=== PATIENT | male | born 1960 | race Caucasian/White ===

== ENCOUNTER → 2018-02-15 | Outpatient (CLI) | payer BC ==
--- NOTE | 2018-02-15 11:58 | XR ---
EXAMINATION TYPE: XR cervical spine limited DATE OF EXAM: 02/15/2018 COMPARISON: 04/12/2015 HISTORY: Pain TECHNIQUE: 3 views are submitted. FINDINGS: The odontoid is intact. There are no compression deformities. The prevertebral soft tissue structur es are within normal limits. There is posterior spondylosis at C3-4, C4-5 and C5-C6. Mild degenerati ve disc disease at these levels. Calcification the soft tissues of the neck likely related to carotid artery. IMPRESSION: 1. Multilevel degenerative disc disease and posterior spondylosis. There is concern for disc herniati on, canal stenosis or foraminal encroachment correlate with MRI. 2. Soft tissue neck calcification bilaterally suggestive of carotid artery calcification..
== END ==
LOC: RADXRMAIN 11:25
PROVIDERS: ATTEND Family Medicine
DX: M50.11 Cervical disc disorder with radiculopathy, high cervical region (principal); M47.22 Other spondylosis with radiculopathy, cervical region
CPT/HCPCS: 72040

== ENCOUNTER → 2018-03-03 | Outpatient (CLI) | payer BC ==
--- NOTE | 2018-03-03 08:39 | CTL ---
EXAMINATION TYPE: CT Low Dose Lung DATE OF EXAM ORDERED: 03/03/2018 COMPARISON: None HISTORY: . Low Dose CT Lung Screening CT DLP: [address] CTDI: 2.22 mGy IV CONTRAST USED: None. SCREENING VISIT: First visit COMPARISON: None. TECHNIQUE: Low dose computed tomography scan was performed through the chest at 1 millimeter thick se ctions and reconstructed images in the coronal plane at [address] DIAGNOSTIC QUALITY: Satisfactory FINDINGS: LUNG NODULES: Not presentLeft lung: no nodules identified.Right lung: no nodules identified. LUNGS: COPD: Severity: None Fibrosis: Severity:None Lymph nodes: None Other findings: None RIGHT PLEURAL SPACE: Effusion: None Calcification: None Thickening: None Pneumothorax: None LEFT PLEURAL SPACE: Effusion: None Calcification: None Thickening: None Pneumothorax: None HEART: Heart Size: Mildly enlarged Coronary calcification: Mild Pericardial effusion: None OTHER FINDINGS: Upper abdomen: No significant abnormality Bony thorax: Degenerative changes Supraclavicular region: No significant abnormalityOther: No significant abnormalityI IMPRESSION: Negative FOLLOW UP CT CHEST RECOMMENDATION: Follow-up screening in one year CT LUNG RAD: Negative category 1 LUNG RAD CATEGORY 1
== END | disposition home or self-care (01) ==
LOC: RADCTMAIN 07:51
PROVIDERS: ATTEND Family Medicine
DX: Z12.2 Encounter for screening for malignant neoplasm of respiratory organs (principal); Z87.891 Personal history of nicotine dependence

== ENCOUNTER → 2018-06-28 | Outpatient (CLI) | payer BC ==
[2018-06-28 11:14] LABS: Anion Gap 9 mmol/L; Blood Urea Nitrogen 19 mg/dL (9-20); Carbon Dioxide 27 mmol/L (22-30); Chloride 105 mmol/L (98-107); Potassium 5.1 mmol/L (3.5-5.1); Sodium 141 mmol/L (137-145)
[2018-06-28 16:34] LABS: Hemoglobin A1C 5.5 % (4.0-6.0)
== END | disposition home or self-care (01) ==
LOC: LABWHC1 10:01
PROVIDERS: ATTEND Family Medicine
DX: I10 Essential (primary) hypertension (principal)
CPT/HCPCS: 36415; 80051; 82565; 83036; 84520

== ENCOUNTER 2022-08-24 18:48 | Emergency (ER) | payer BC, OTHER ==
[2022-08-24 18:56] VITALS: TEMP 97.4
--- NOTE | 2022-08-24 19:55 | ED ---
General Adult HPI - General Chief complaint: Chest Pain Stated complaint: ETOH, heart pain, headache Time Seen by Provider: 08/24/22 18:57 Source: patient Mode of arrival: ambulatory Limitations: no limitations - History of Present Illness Initial comments: This is a 62-year-old male with a past medical history including diabetes and hypertension presented to the emergency department with his sister for chest pain. The patient was intoxicated and did report that he drinks approximately 15-30 pack of beer every day and had been drinking today. The patient is a poor historian and needed to rely on his sister for answering some questions. The patient stated he has had chest pain and pressure on the left side of his chest for "months" and stated that the pain became worse today speaking in. The patient stated that he has not taken any medications that he is supposed to over the last several months since December when his . The patient stated he also had a headache today. The patient denied any lightheadedness or dizziness. The patient denied any radiation of this chest pain. The patient did have point tenderness to the left side anterior chest and denied any trauma to the area. The patient was resting in bed comfortably. - Related Data Home Medications Medication Instructions Recorded Confirmed Empagliflozin/Linagliptin 1 tab PO DAILY 07/14/16 07/15/16 [Glyxambi 10 mg-5 mg Tablet] lisinopriL [Prinivil] 20 mg PO DAILY 07/14/16 07/15/16 Previous Rx's Medication Instructions Recorded HYDROcodone/APAP 7.5-325MG [[place] 1 each PO Q4H PRN #60 tab 07/15/16 7.5] Allergies Allergy/AdvReac Type Severity Reaction Status Date / Time No Known Allergies Allergy Verified 08/24/22 18:55 Review of Systems ROS Statement: Those systems with pertinent positive or pertinent negative responses have been documented in the HPI. ROS Other: All systems not noted in ROS Statement are negative. Past Medical History Past Medical History: Chest Pain / Angina, Diabetes Mellitus, Hypertension History of Any Multi-Drug Resistant Organisms: None Reported Additional Past Surgical History / Comment(s): [place] teeth pulled only. Additional Past Anesthesia/Blood Transfusion Reaction / Comment(s): Never had anesthesia Past Psychological History: No Psychological Hx Reported Past Alcohol Use History: Occasional Past Drug Use History: None Reported - Past Family History Mother Family Medical History: No Reported History Father Family Medical History: Cancer Additional Family Medical History / Comment(s): Unknown General Exam Limitations: no limitations General appearance: alert, appears intoxicated Head exam: Present: atraumatic, normocephalic, normal inspection Eye exam: Present: normal appearance, PERRL Pupils: Present: normal accommodation ENT exam: Present: normal exam, normal oropharynx, mucous membranes moist Neck exam: Present: normal inspection, full ROM Respiratory exam: Present: normal lung sounds bilaterally, other (Tenderness with patient to the anterior left chest wall) Cardiovascular Exam: Present: regular rate, normal rhythm, normal heart sounds GI/Abdominal exam: Present: soft, normal bowel sounds Extremities exam: Present: normal inspection, full ROM Back exam: Present: normal inspection, full ROM Neurological exam: Present: alert, oriented X3, CN II-XII intact Psychiatric exam: Present: normal affect, normal mood Skin exam: Present: warm, dry Course Vital Signs 08/24/22 08/24/22 18:53 22:07 Temperature 97.4 F L Pulse Rate 109 H 78 Respiratory 20 15 Rate Blood Pressure 185/110 137/67 O2 Sat by Pulse 94 L 97 Oximetry Medical Decision Making - Medical Decision Making The patient was seen and evaluated in the emergency department. Physical exam, the patient was resting in bed without any acute distress. The patient was intoxicated. Vital signs did show slight tachycardia and hypertension. Due to the nature the patient's complaints, laboratory workup was obtained as was a chest x-ray and EKG. Laboratory workup was largely within normal limits however d-dimer was 0.88. Chest x-ray was negative. The patient's alcohol level was elevated likely consistent with his chronic alcohol abuse. The patient was told of these results. The patient was advised that he would need a CTA of the chest to rule out a PE however the patient refused this. The patient's sister also told him that it was needed however the patient did not want to obtain this lab test and stated that he didn't have any current chest pain. The patient wanted to be discharged and did not want any further testing at this time. I did advise the patient that he could have a PE however due to the chronicity of the patient's chest pain at did agree to discharge the patient to follow up as an outpatient. The patient was discharged home in stable condition with his sister. - Lab Data Result diagrams: 08/24/22 19:37 08/24/22 19:37 Lab Results 08/24/22 08/24/22 08/24/22 Range/Units 19:37 19:37 19:37 WBC 10.0 (3.8-10.6) k/uL RBC 5.42 (4.30-5.90) m/uL Hgb 17.2 (13.0-17.5) gm/dL Hct 50.3 (39.0-53.0) % MCV 92.7 (80.0-100.0) fL MCH 31.7 (25.0-35.0) pg MCHC 34.2 (31.0-37.0) g/dL RDW 13.2 (11.5-15.5) % Plt Count 202 (150-450) k/uL MPV 9.3 Neutrophils % 51 % Lymphocytes % 40 % Monocytes % 5 % Eosinophils % 1 % Basophils % 1 % Neutrophils # 5.1 (1.3-7.7) k/uL Lymphocytes # 4.1 (1.0-4.8) k/uL Monocytes # 0.5 (0-1.0) k/uL Eosinophils # 0.1 (0-0.7) k/uL Basophils # 0.1 (0-0.2) k/uL D-Dimer 0.88 H (<0.60) mg/L FEU Sodium 143 (137-145) mmol/L Potassium 4.1 (3.5-5.1) mmol/L Chloride 108 H (98-107) mmol/L Carbon Dioxide 22 (22-30) mmol/L Anion Gap 13 mmol/L BUN 10 (9-20) mg/dL Creatinine 0.80 (0.66-1.25) mg/dL Est GFR (CKD-EPI)AfAm >90 (>60 ml/min/1.73 sqM) Est GFR (CKD-EPI)NonAf >90 (>60 ml/min/1.73 sqM) Glucose 79 (74-99) mg/dL Calcium 9.0 (8.4-10.2) mg/dL Total Bilirubin 0.6 (0.2-1.3) mg/dL AST 47 (17-59) U/L ALT 76 H (4-49) U/L Alkaline Phosphatase 78 (38-126) U/L Troponin I (0.000-0.034) ng/mL NT-Pro-B Natriuret Pep pg/mL Total Protein 7.4 (6.3-8.2) g/dL Albumin 4.8 (3.5-5.0) g/dL Serum Alcohol 257 H* mg/dL 08/24/22 08/24/22 Range/Units 19:37 19:37 WBC (3.8-10.6) k/uL RBC (4.30-5.90) m/uL Hgb (13.0-17.5) gm/dL Hct (39.0-53.0) % MCV (80.0-100.0) fL MCH (25.0-35.0) pg MCHC (31.0-37.0) g/dL RDW (11.5-15.5) % Plt Count (150-450) k/uL MPV Neutrophils % % Lymphocytes % % Monocytes % % Eosinophils % % Basophils % % Neutrophils # (1.3-7.7) k/uL Lymphocytes # (1.0-4.8) k/uL Monocytes # (0-1.0) k/uL Eosinophils # (0-0.7) k/uL Basophils # (0-0.2) k/uL D-Dimer (<0.60) mg/L FEU Sodium (137-145) mmol/L Potassium (3.5-5.1) mmol/L Chloride (98-107) mmol/L Carbon Dioxide (22-30) mmol/L Anion Gap mmol/L BUN (9-20) mg/dL Creatinine (0.66-1.25) mg/dL Est GFR (CKD-EPI)AfAm (>60 ml/min/1.73 sqM) Est GFR (CKD-EPI)NonAf (>60 ml/min/1.73 sqM) Glucose (74-99) mg/dL Calcium (8.4-10.2) mg/dL Total Bilirubin (0.2-1.3) mg/dL AST (17-59) U/L ALT (4-49) U/L Alkaline Phosphatase (38-126) U/L Troponin I 0.025 (0.000-0.034) ng/mL NT-Pro-B Natriuret Pep 686 pg/mL Total Protein (6.3-8.2) g/dL Albumin (3.5-5.0) g/dL Serum Alcohol mg/dL Disposition Clinical Impression: Chest pain, Elevated d-dimer, Alcohol abuse Disposition: HOME SELF-CARE Condition: Stable Instructions (If sedation given, give patient instructions): Chest Pain (ED) Is patient prescribed a controlled substance at d/c from ED?: No Referrals: None,Stated [Primary Care Provider] - 1-2 days Time of Disposition: 21:50
[2022-08-24 20:09] LABS: Basophils # (A) 0.1 k/uL (0-0.2); Basophils % (A) 1 %; Eosinophils # (A) 0.1 k/uL (0-0.7); Eosinophils % (A) 1 %; HCT 50.3 % (39.0-53.0); HGB 17.2 gm/dL (13.0-17.5); Lymphocytes # (A) 4.1 k/uL (1.0-4.8); Lymphocytes % (A) 40 %; MCH 31.7 pg (25.0-35.0); MCHC 34.2 g/dL (31.0-37.0); MCV 92.7 fL (80.0-100.0); Mean Platelet Volume 9.3; Monocytes # (A) 0.5 k/uL (0-1.0); Monocytes % (A) 5 %; Neutrophils # (A) 5.1 k/uL (1.3-7.7); Neutrophils % (A) 51 %; Platelet Count 202 k/uL (150-450); RBC 5.42 m/uL (4.30-5.90); RDW 13.2 % (11.5-15.5)
--- NOTE | 2022-08-24 20:16 | XR ---
EXAMINATION TYPE: XR chest 2V DATE OF EXAM: 08/24/2022 COMPARISON: NONE HISTORY: Chest pain TECHNIQUE: FINDINGS: Heart and mediastinum are normal. Lungs are clear. Diaphragm is normal. Bony thorax is inta ct. IMPRESSION: Normal chest.
[2022-08-24 20:18] LABS: ALT 76 U/L (4-49); AST 47 U/L (17-59); African American GFR (CKD) >90 (>60 ml/min/1.73 sqM); Albumin 4.8 g/dL (3.5-5.0); Alkaline Phosphatase 78 U/L (38-126); Anion Gap 13 mmol/L; Blood Urea Nitrogen 10 mg/dL (9-20); Carbon Dioxide 22 mmol/L (22-30); Chloride 108 mmol/L (98-107); Glucose 79 mg/dL (74-99); Non-African American GFR(CKD) >90 (>60 ml/min/1.73 sqM); Potassium 4.1 mmol/L (3.5-5.1); Sodium 143 mmol/L (137-145); Total Bilirubin 0.6 mg/dL (0.2-1.3); Total Protein 7.4 g/dL (6.3-8.2)
[2022-08-24 20:39] LABS: Alcohol 257 mg/dL
[2022-08-24 22:08] VITALS: BP 137/67; PULSE 78; RESP 15
== END 2022-08-24 22:14 | disposition home or self-care (01) ==
LOC: EC 18:48
DX: R07.9 Chest pain, unspecified (principal); R79.1 Abnormal coagulation profile; F10.10 Alcohol abuse, uncomplicated; E11.9 Type 2 diabetes mellitus without complications; I10 Essential (primary) hypertension; Y90.9 Presence of alcohol in blood, level not specified
CPT/HCPCS: 36415; 71046; 80053; 80320; 83880; 84484; 85025; 85379; 99284

== ENCOUNTER 2023-12-29 19:07 | Emergency (ER) | payer OTHER ==
--- NOTE | 2023-12-29 19:23 | ED ---
SOB HPI - General Source: patient Mode of arrival: EMS Limitations: no limitations <Pushpa Pittman - Last Filed: 12/29/23 19:22> <Kevin Alonso - Last Filed: 12/29/23 23:06> - General Chief Complaint: Shortness of Breath Stated Complaint: DONNY Time Seen by Provider: 12/29/23 19:22 - History of Present Illness Initial Comments: 63-year-old male presenting with chief complaint of shortness of breath. He also complains of chest pain. Does not remember when his symptoms started. States that he "quit smoking" today, he has only smoked 1 cigarette today. (Pushpa Pittman) - Related Data Home Medications Medication Instructions Recorded Confirmed Empagliflozin/Linagliptin 1 tab PO DAILY 07/14/16 07/15/16 [Glyxambi 10 mg-5 mg Tablet] lisinopriL [Prinivil] 20 mg PO DAILY 07/14/16 07/15/16 Previous Rx's Medication Instructions Recorded HYDROcodone/APAP 7.5-325MG [[place] 1 each PO Q4H PRN #60 tab 07/15/16 7.5] Albuterol Inhaler [Ventolin Hfa 2 puff INHALATION Q4HR PRN #8 gm 12/29/23 Inhaler] predniSONE 60 mg PO DAILY #30 tab 12/29/23 Allergies Allergy/AdvReac Type Severity Reaction Status Date / Time No Known Allergies Allergy Verified 08/24/22 18:55 Review of Systems ROS Other: All systems not noted in ROS Statement are negative. <Pushpa Pittman - Last Filed: 12/29/23 19:22> ROS Other: All systems not noted in ROS Statement are negative. <Kevin Alonso - Last Filed: 12/29/23 23:06> ROS Statement: Those systems with pertinent positive or pertinent negative responses have been documented in the HPI. Past Medical History Past Medical History: Chest Pain / Angina, Diabetes Mellitus, Hypertension History of Any Multi-Drug Resistant Organisms: None Reported Past Surgical History: Hernia Repair Additional Past Surgical History / Comment(s): [place] teeth pulled only. Additional Past Anesthesia/Blood Transfusion Reaction / Comment(s): Never had anesthesia Past Psychological History: No Psychological Hx Reported Past Alcohol Use History: Occasional Past Drug Use History: None Reported - Past Family History Mother Family Medical History: No Reported History Father Family Medical History: Cancer Additional Family Medical History / Comment(s): Unknown <Pushpa Pittman - Last Filed: 12/29/23 19:22> General Exam Limitations: no limitations <Pushpa Pittman - Last Filed: 12/29/23 19:22> - General Exam Comments Initial Comments: Visual Physical Exam Vital signs reviewed General: Well-appearing, nontoxic, no acute distress. Head: Normocephalic, atraumatic Eyes: PERRLA, EOMI ENT: Airway patent Chest: Nonlabored breathing Skin: No visual rash, normal skin tone Neuro: Alert and oriented 3 Musculoskeletal: No gross abnormalities (Pushpa Pittman) Course Vital Signs 12/29/23 12/29/23 12/29/23 19:11 21:40 22:03 Temperature 97.8 F Pulse Rate 115 H 98 Respiratory 26 H 20 20 Rate Blood Pressure 154/106 164/93 O2 Sat by Pulse 98 98 Oximetry 12/29/23 12/29/23 12/29/23 22:09 22:24 22:30 Temperature Pulse Rate 90 98 85 Respiratory 18 Rate Blood Pressure 139/90 O2 Sat by Pulse 98 Oximetry Medical Decision Making <Pushpa Pittman - Last Filed: 12/29/23 19:22> - Lab Data Result diagrams: 12/29/23 19:38 12/29/23 19:38 - EKG Data -: EKG Interpreted by Al EKG shows normal: sinus rhythm, axis (Normal), intervals (Normal) Rate: tachycardia (Rate 101 bpm) Interpretation: nonspecific ST-T wave changes, LVH (Voltage criteria) <Kevin Alonso - Last Filed: 12/29/23 23:06> - Medical Decision Making I performed the quick note portion of this visit, electronically signed Pushpa Pittman PA-C (Pushpa Pittman) - Lab Data Lab Results 12/29/23 12/29/23 12/29/23 Range/Units 19:38 19:38 19:38 WBC 8.8 (3.8-10.6) k/uL RBC 4.94 (4.30-5.90) m/uL Hgb 15.2 (13.0-17.5) gm/dL Hct 45.7 (39.0-53.0) % MCV 92.5 (80.0-100.0) fL MCH 30.9 (25.0-35.0) pg MCHC 33.4 (31.0-37.0) g/dL RDW 13.4 (11.5-15.5) % Plt Count 239 (150-450) k/uL MPV 8.7 Neutrophils % 54 % Lymphocytes % 36 % Monocytes % 5 % Eosinophils % 1 % Basophils % 1 % Neutrophils # 4.8 (1.3-7.7) k/uL Lymphocytes # 3.1 (1.0-4.8) k/uL Monocytes # 0.5 (0-1.0) k/uL Eosinophils # 0.1 (0-0.7) k/uL Basophils # 0.1 (0-0.2) k/uL PT 10.6 (10.0-12.5) sec INR 1.0 (<1.2) APTT 24.6 (22.0-30.0) sec Sodium 132 L (137-145) mmol/L Potassium 4.1 (3.5-5.1) mmol/L Chloride 102 (98-107) mmol/L Carbon Dioxide 17 L (22-30) mmol/L Anion Gap 13 mmol/L BUN 12 (9-20) mg/dL Creatinine 0.94 (0.66-1.25) mg/dL Est GFR (CKD-EPI)AfAm >90 (>60 ml/min/1.73 sqM) Est GFR (CKD-EPI)NonAf 86 (>60 ml/min/1.73 sqM) Glucose 86 (74-99) mg/dL Calcium 8.9 (8.4-10.2) mg/dL Total Bilirubin 1.0 (0.2-1.3) mg/dL AST 43 (17-59) U/L ALT 50 H (4-49) U/L Alkaline Phosphatase 85 (38-126) U/L Troponin I (0.000-0.034) ng/mL Total Protein 6.8 (6.3-8.2) g/dL Albumin 4.0 (3.5-5.0) g/dL Influenza Type A (PCR) (Not Detectd) Influenza Type B (PCR) (Not Detectd) RSV (PCR) (Not Detectd) SARS-CoV-2 (PCR) (Not Detectd) 12/29/23 12/29/23 Range/Units 19:38 19:38 WBC (3.8-10.6) k/uL RBC (4.30-5.90) m/uL Hgb (13.0-17.5) gm/dL Hct (39.0-53.0) % MCV (80.0-100.0) fL MCH (25.0-35.0) pg MCHC (31.0-37.0) g/dL RDW (11.5-15.5) % Plt Count (150-450) k/uL MPV Neutrophils % % Lymphocytes % % Monocytes % % Eosinophils % % Basophils % % Neutrophils # (1.3-7.7) k/uL Lymphocytes # (1.0-4.8) k/uL Monocytes # (0-1.0) k/uL Eosinophils # (0-0.7) k/uL Basophils # (0-0.2) k/uL PT (10.0-12.5) sec INR (<1.2) APTT (22.0-30.0) sec Sodium (137-145) mmol/L Potassium (3.5-5.1) mmol/L Chloride (98-107) mmol/L Carbon Dioxide (22-30) mmol/L Anion Gap mmol/L BUN (9-20) mg/dL Creatinine (0.66-1.25) mg/dL Est GFR (CKD-EPI)AfAm (>60 ml/min/1.73 sqM) Est GFR (CKD-EPI)NonAf (>60 ml/min/1.73 sqM) Glucose (74-99) mg/dL Calcium (8.4-10.2) mg/dL Total Bilirubin (0.2-1.3) mg/dL AST (17-59) U/L ALT (4-49) U/L Alkaline Phosphatase (38-126) U/L Troponin I 0.019 (0.000-0.034) ng/mL Total Protein (6.3-8.2) g/dL Albumin (3.5-5.0) g/dL Influenza Type A (PCR) Not Detected (Not Detectd) Influenza Type B (PCR) Not Detected (Not Detectd) RSV (PCR) Not Detected (Not Detectd) SARS-CoV-2 (PCR) Not Detected (Not Detectd) Disposition <Pushpa Pittman - Last Filed: 12/29/23 19:22> Is patient prescribed a controlled substance at d/c from ED?: No <Kevin Alonso - Last Filed: 12/29/23 23:06> Clinical Impression: COPD (chronic obstructive pulmonary disease) Disposition: LEFT AGAINST MEDICAL ADVICE Condition: Fair Instructions (If sedation given, give patient instructions): COPD (Chronic Obstructive Pulmonary Disease) (ED) Prescriptions: predniSONE 60 mg PO DAILY #30 tab Albuterol Inhaler [Ventolin Hfa Inhaler] 2 puff INHALATION Q4HR PRN #8 gm PRN Reason: Wheezing Referrals: Je Gonzales MD [Primary Care Provider] - 1-2 days Marlene Porras MD [STAFF PHYSICIAN] - 1-2 days
[2023-12-29 19:55] LABS: Basophils # (A) 0.1 k/uL (0-0.2); Basophils % (A) 1 %; Eosinophils # (A) 0.1 k/uL (0-0.7); Eosinophils % (A) 1 %; HCT 45.7 % (39.0-53.0); HGB 15.2 gm/dL (13.0-17.5); Lymphocytes # (A) 3.1 k/uL (1.0-4.8); Lymphocytes % (A) 36 %; MCH 30.9 pg (25.0-35.0); MCHC 33.4 g/dL (31.0-37.0); MCV 92.5 fL (80.0-100.0); Mean Platelet Volume 8.7; Monocytes # (A) 0.5 k/uL (0-1.0); Monocytes % (A) 5 %; Neutrophils # (A) 4.8 k/uL (1.3-7.7); Neutrophils % (A) 54 %; Platelet Count 239 k/uL (150-450); RBC 4.94 m/uL (4.30-5.90); RDW 13.4 % (11.5-15.5); WBC 8.8 k/uL (3.8-10.6)
[2023-12-29 20:04] LABS: Partial Thromboplastin Time 24.6 sec (22.0-30.0); Prothrombin Time 10.6 sec (10.0-12.5)
[2023-12-29 20:11] LABS: ALT 50 U/L (4-49); AST 43 U/L (17-59); African American GFR (CKD) >90 (>60 ml/min/1.73 sqM); Alkaline Phosphatase 85 U/L (38-126); Anion Gap 13 mmol/L; Blood Urea Nitrogen 12 mg/dL (9-20); Calcium 8.9 mg/dL (8.4-10.2); Carbon Dioxide 17 mmol/L (22-30); Chloride 102 mmol/L (98-107); Glucose 86 mg/dL (74-99); Non-African American GFR(CKD) 86 (>60 ml/min/1.73 sqM); Potassium 4.1 mmol/L (3.5-5.1); Sodium 132 mmol/L (137-145); Total Protein 6.8 g/dL (6.3-8.2)
--- NOTE | 2023-12-29 20:44 | XR ---
EXAMINATION TYPE: XR chest 2V DATE OF EXAM: 12/29/2023 7:58 PM CLINICAL INDICATION:Male, 63 years old with history of difficulty breathing; [facility] COMPARISON: Chest radiographs from 08/24/2022 TECHNIQUE: XR chest 2V Frontal and lateral views of the chest. FINDINGS: Lungs/Pleura: Prominent interstitial lung markings are seen scattered throughout the lungs with mervin ening of the diaphragm and increased lucency of the lung apices. No evidence of focal consolidation, pneumothorax or pleural effusion. Pulmonary vascularity: Unremarkable. Heart/mediastinum: Cardiomediastinal silhouette is unremarkable. Musculoskeletal: No acute osseous pathology. IMPRESSION: Chronic changes without acute pulmonary process. No significant change from prior.
[2023-12-29] MEDS: predniSONE 20 MG TAB PO STA (22:01)
[2023-12-29] MEDS: IPRATROPIUM-ALBUTEROL 3 ML NEB INHALATION STA (22:08)
[2023-12-29] MEDS: ALBUTEROL NEBULIZED 2.5 MG/3 ML INHALATION STA (22:08)
[2023-12-29] MEDS: ALBUTEROL HFA INHALER INHALATION STA (23:21)
[2023-12-29 23:32] VITALS: BP 154/88; PULSE 92; RESP 18
[2023-12-29 23:33] VITALS: TEMP 98.4
== END 2023-12-29 23:20 | disposition left against medical advice (07) ==
LOC: EC 19:07 → SUPCPDRO 19:07 → EC 23:20
DX: J44.9 Chronic obstructive pulmonary disease, unspecified (principal); Z87.891 Personal history of nicotine dependence; Z53.29 Procedure and treatment not carried out because of patient's decision for other reasons
CPT/HCPCS: 99285; 36415; 94640 ×2; 93005; 80053; 84484; 85025; 85610; 85730; 87636; 71046; J7512

== ENCOUNTER 2024-01-08 00:20 | Inpatient (IN) | payer OTHER ==
[2024-01-08 00:48] LABS: Basophils # (A) 0.1 k/uL (0-0.2); Basophils % (A) 1 %; Eosinophils # (A) 0.1 k/uL (0-0.7); Eosinophils % (A) 1 %; HCT 51.9 % (39.0-53.0); HGB 16.3 gm/dL (13.0-17.5); Lymphocytes # (A) 3.2 k/uL (1.0-4.8); Lymphocytes % (A) 24 %; MCH 30.5 pg (25.0-35.0); MCHC 31.4 g/dL (31.0-37.0); Mean Platelet Volume 8.5; Monocytes # (A) 0.7 k/uL (0-1.0); Monocytes % (A) 5 %; Neutrophils % (A) 68 %; Platelet Count 266 k/uL (150-450); RBC 5.35 m/uL (4.30-5.90); RDW 13.4 % (11.5-15.5); WBC 13.3 k/uL (3.8-10.6)
[2024-01-08] MEDS: IPRATROPIUM-ALBUTEROL 3 ML NEB INHALATION STA (00:49)
[2024-01-08] MEDS: LORazepam 2 MG/ML INJ IV STA (00:50)
[2024-01-08 00:57] LABS: ALT 198 U/L (4-49); AST 226 U/L (17-59); African American GFR (CKD) 79 (>60 ml/min/1.73 sqM); Alkaline Phosphatase 170 U/L (38-126); Anion Gap 11 mmol/L; Blood Urea Nitrogen 19 mg/dL (9-20); Calcium 8.8 mg/dL (8.4-10.2); Carbon Dioxide 18 mmol/L (22-30); Chloride 102 mmol/L (98-107); Glucose 257 mg/dL (74-99); Magnesium 2.1 mg/dL (1.6-2.3); Non-African American GFR(CKD) 68 (>60 ml/min/1.73 sqM); Sodium 131 mmol/L (137-145); Total Bilirubin 1.4 mg/dL (0.2-1.3); Total Protein 6.6 g/dL (6.3-8.2)
[2024-01-08] MEDS: ETOMIDATE 2 MG/ML 10 ML VIAL IVP STA (00:57)
[2024-01-08] MEDS: SUCCINYLCHOLINE CHLORIDE 200 MG/10 ML VIAL IV ONE (00:57)
[2024-01-08 00:58] LABS: Partial Thromboplastin Time 22.5 sec (22.0-30.0); Prothrombin Time 11.2 sec (10.0-12.5)
--- NOTE | 2024-01-08 00:58 | XR ---
EXAMINATION TYPE: XR chest 1V portable DATE OF EXAM: 01/08/2024 COMPARISON: Chest x-ray December 29, 2023 HISTORY: Chest pain TECHNIQUE: Single frontal view of the chest is obtained. FINDINGS: There is chronic parenchymal changes bilaterally with bilateral central increased opacitie s. The cardiac silhouette size is upper limits of normal slightly more prominent from prior. The o sseous structures are intact. IMPRESSION: New central opacities favoring mild to moderate edema versus developing acute infiltrate s. Correlate clinically.
[2024-01-08] MEDS: SODIUM CHLORIDE 0.9% 500 ML 500 ML IV SCH (01:08)
[2024-01-08] MEDS: MIDAZOLAM 1 MG/ML 5 ML VIAL IV STA ×2 (01:23→03:45)
--- NOTE | 2024-01-08 01:25 | XR ---
EXAMINATION TYPE: XR chest 1V portable DATE OF EXAM: 01/08/2024 COMPARISON: Chest x-ray earlier today HISTORY: ET tube placement. TECHNIQUE: Single frontal view of the chest is obtained. FINDINGS: There is no endotracheal tube at level of aortic knob approximately 2.0 cm above elle. Ad vise pulling back 2 to 3 cm to be more ideal position. New oral gastric tube projects below the diaph ragm. Persistent central bilateral opacities. The cardiac silhouette size is stable and within normal walker its. The osseous structures are intact. IMPRESSION: 1. Satisfactory positioning of new orogastric tube. 2. Endotracheal tube roughly 2.0 cm above elle, advise point back 2 to 3 cm to be more ideal positi on. 3. Moderate central bilateral edema and/or less likely acute infiltrates redemonstrated. No significa nt change from most recent study.
--- NOTE | 2024-01-08 01:29 | ED ---
General Adult HPI - General Chief complaint: Chest Pain Stated complaint: chest pain Time Seen by Provider: 01/08/24 00:38 Source: patient, family Limitations: no limitations - History of Present Illness Initial comments: Bk is a 63-year-old man with a history of COPD who was brought to the ER today in acute respiratory distress. Patient reported to his family that he has had some increased cough and shortness of breath today he developed sharp stabbing pain in his left chest and progressively worsening shortness of breath he refused to come to the ER by ambulance and requested his family bring him in. Further history is limited by patient's respiratory distress - Related Data Home Medications Medication Instructions Recorded Confirmed Empagliflozin/Linagliptin 1 tab PO DAILY 07/14/16 07/15/16 [Glyxambi 10 mg-5 mg Tablet] lisinopriL [Prinivil] 20 mg PO DAILY 07/14/16 07/15/16 Previous Rx's Medication Instructions Recorded HYDROcodone/APAP 7.5-325MG [[place] 1 each PO Q4H PRN #60 tab 07/15/16 7.5] Albuterol Inhaler [Ventolin Hfa 2 puff INHALATION Q4HR PRN #8 gm 12/29/23 Inhaler] predniSONE 60 mg PO DAILY #30 tab 12/29/23 Allergies Allergy/AdvReac Type Severity Reaction Status Date / Time No Known Allergies Allergy Verified 01/08/24 00:21 Review of Systems ROS Statement: Those systems with pertinent positive or pertinent negative responses have been documented in the HPI. ROS Other: All systems not noted in ROS Statement are negative. Past Medical History Past Medical History: Chest Pain / Angina, COPD, Diabetes Mellitus, Hypertension History of Any Multi-Drug Resistant Organisms: None Reported Past Surgical History: Hernia Repair Additional Past Surgical History / Comment(s): [place] teeth pulled only. Additional Past Anesthesia/Blood Transfusion Reaction / Comment(s): Never had anesthesia Past Psychological History: No Psychological Hx Reported Smoking Status: Current every day smoker Past Alcohol Use History: Occasional Past Drug Use History: None Reported - Past Family History Mother Family Medical History: No Reported History Father Family Medical History: Cancer Additional Family Medical History / Comment(s): Unknown General Exam - General Exam Comments Initial Comments: Physical Exam GENERAL: Ill-appearing gentleman davis pale diaphoretic in acute respiratory distress HENT: Normocephalic, Atraumatic. EYES: PERRL, EOMI PULMONARY: Tachypneic, coarse breath sounds in all lung sanchez CARDIOVASCULAR: Tachycardic, regular Diaphoretic, skin is mottled on abdomen and extremities ABDOMEN: Belly breathing SKIN: Mottled : Deferred NEUROLOGIC: Somewhat altered with eyes rolling back MUSCULOSKELETAL: Normal extremities with adequate strength and full range of motion. No lower extremity swelling or edema. No calf tenderness. PSYCHIATRIC: Unable to assess Limitations: no limitations Course Vital Signs 01/08/24 01/08/24 01/08/24 00:21 00:45 01:23 Pulse Rate 125 H 125 H Respiratory 20 34 H Rate Blood Pressure 205/137 201/156 O2 Sat by Pulse 86 L 92 L Oximetry Fraction of 100 Inspired Oxygen (FIO2) 01/08/24 01/08/24 01:28 02:00 Pulse Rate Respiratory Rate Blood Pressure O2 Sat by Pulse Oximetry Fraction of 100 80 Inspired Oxygen (FIO2) EKG Findings - EKG Comments: EKG Findings:: EKG interpreted by me, EKG obtained due to complaint of chest pain and shortness of breath, EKG obtained at 12:34 AM EKG with a rate of 127, rhythm is sinus leftward axis with LVH, significant respiratory artifact but no obvious ST elevations mild diffuse ST depressions concerning for ischemia without acute infarction. Procedures - Intubation Sedative: Etomidate Paralytic: Succinylcholine Laryngoscope: Monika Size: 4 ET Tube Size: 7.5 ET Tube Uncuffed: No Tube Secured Depth (cm): 23 Tube Secured Location: teeth Tube Placement Confirmation: visualized tube passing through cords, equal breath sounds bilaterally, no breath sounds over epigastrium, confirmation by capnometry Patient Tolerated Procedure: well Intubation Complications: none - Sepsis Sepsis Focused Exam #1 Time Sepsis Criteria Met: 01:00 Sepsis Focused Exam Date: 01/08/24 Sepsis Focused Exam Time: 02:17 Sepsis Focused Exam Complete: Yes Capillary Refill: < 2 Seconds: Fingers, Toes Peripheral Pulses: Normal: Radial (R), Radial (L) Respiratory Exam: rales Cardiovascular Exam: regular rate Medical Decision Making - Medical Decision Making Was pt. sent in by a medical professional or institution (, PA, ELECTRICIAN MARINE, urgent care, hospital, or usp...) When possible be specific @ -No Did you speak to anyone other than the patient for history (EMS, parent, family, police, friend...)? What history was obtained from this source @ -Son, niece at bedside Did you review nursing and triage notes (agree or disagree)? Why? @ -I reviewed and agree with nursing and triage notes Were old charts reviewed (outside hosp., previous admission, EMS record, old EKG, old radiological studies, urgent care reports/EKG's, usp records)? Report findings @ -Previous visits were reviewed Differential Diagnosis (chest pain, altered mental status, abdominal pain women, abdominal pain men, vaginal bleeding, weakness, fever, dyspnea, syncope, headache, dizziness, GI bleed, back pain, seizure, CVA, palpatations, mental health)? @ -Differential Dyspnea: Coronary syndrome, arrhythmia, tamponade, asthma, COPD, pulmonary embolism, pneumonia, pneumothorax, pulmonary effusion, anaphylaxis, diabetic ketoacidosis, flailed chest, pulmonary contusion, diaphragmatic rupture, anemia, neuromuscular, this is not meant to be an all-inclusive list. EKG interpreted by me (3pts min.). @ -As above X-rays interpreted by me (1pt min.). @ -Initial chest x-ray with no pneumothorax, concerning for left-sided pneumonia Chest x-ray with ET tube in good position, OG tube below the diaphragm CT interpreted by me (1pt min.). @ -No obvious PE no obvious dissection, pneumonia present with small pleural effusions U/S interpreted by me (1pt. min.). @ -None done What testing was considered but not performed or refused? (CT, X-rays, U/S, labs )? Why? @ -None What meds were considered but not given or refused? Why? @ -None Did you discuss the management of the patient with other professionals (professionals i.e. , PA, ELECTRICIAN MARINE, lab, RT, psych nurse, long term care social worker, unix engineer, teacher, first officer and flight instructor, pillowcase maker)? Give summary @ -Discussed with RT, nursing staff at bedside, ICU physician and admitting physician Was smoking cessation discussed for >3mins.? @ -No Was critical care preformed (if so, how long)? @ -Yes 60 minutes Were there social determinants of health that impacted care today? How? (Homelessness, low income, unemployed, alcoholism, drug addiction, transportation, low edu. Level, literacy, decrease access to med. care, fdc, rehab)? @ -No Was there de-escalation of care discussed even if they declined (Discuss DNR or withdrawal of care, Hospice)? DNR status @ -No What co-morbidities impacted this encounter? (DM, HTN, Smoking, COPD, CAD, Cancer, CVA, ARF, Chemo, Hep., AIDS, mental health diagnosis, sleep apnea, morbid obesity)? @ -COPD Was patient admitted / discharged? Hospital course, mention meds given and route, prescriptions, significant lab abnormalities, going to OR and other pertinent info. @ -The patient was seen and evaluated immediately upon arrival to the emergency department, patient was noted to be davis pale diaphoretic tachypneic tachycardic and profoundly hypertensive patient was in severe respiratory distress. We had trialed BiPAP with a small dose of IV Ativan however patient was not tolerating the BiPAP and was becoming altered. Decision was ultimately made to intubate the patient for respiratory support and airway protection. Family was agreeable with this. Patient was intubated without difficulty. Chest x-ray reveals ET tube in good position OG tube in good position. Patient was taken to CT for evaluation due to vital sign abnormalities. CT shows diffuse pneumonia no dissection no pulmonary embolism. Broad-spectrum antibiotics were ordered. Patient care was discussed with gaming commissioner poker room manager Dr. Oliveros who accepts the patient to the ICU. Undiagnosed new problem with uncertain prognosis? @ -Yes Drug Therapy requiring intensive monitoring for toxicity (Heparin, Nitro, Insulin, Cardizem)? @ -No Were any procedures done? @ -No Diagnosis/symptom? @ -Respiratory failure secondary to pneumonia Acute, or Chronic, or Acute on Chronic? @ -Acute Uncomplicated (without systemic symptoms) or Complicated (systemic symptoms)? @ -Complicated Side effects of treatment? @ -No Exacerbation, Progression, or Severe Exacerbation? @ -No Poses a threat to life or bodily function? How? (Chest pain, [place], [place], pneumonia, PE, COPD, DKA, ARF, appy, cholecystitis, CVA, Diverticulitis, Homicidal, Suicidal, threat to staff... and all critical care pts) @ -Yes Diagnosis/symptom? @ -Sepsis Acute, or Chronic, or Acute on Chronic? @ -Acute Uncomplicated (without systemic symptoms) or Complicated (systemic symptoms)? @ -Complicated Side effects of treatment? @ -None Exacerbation, Progression, or Severe Exacerbation] @ -No Poses a threat to life or bodily function? @ -Yes - Lab Data Result diagrams: 01/08/24 00:37 01/08/24 00:37 Lab Results 01/08/24 01/08/24 01/08/24 Range/Units 00:37 00:37 00:37 WBC 13.3 H (3.8-10.6) k/uL RBC 5.35 (4.30-5.90) m/uL Hgb 16.3 (13.0-17.5) gm/dL Hct 51.9 (39.0-53.0) % MCV 97.0 (80.0-100.0) fL MCH 30.5 (25.0-35.0) pg MCHC 31.4 (31.0-37.0) g/dL RDW 13.4 (11.5-15.5) % Plt Count 266 (150-450) k/uL MPV 8.5 Neutrophils % 68 % Lymphocytes % 24 % Monocytes % 5 % Eosinophils % 1 % Basophils % 1 % Neutrophils # 9.0 H (1.3-7.7) k/uL Lymphocytes # 3.2 (1.0-4.8) k/uL Monocytes # 0.7 (0-1.0) k/uL Eosinophils # 0.1 (0-0.7) k/uL Basophils # 0.1 (0-0.2) k/uL PT 11.2 (10.0-12.5) sec INR 1.0 (<1.2) APTT 22.5 (22.0-30.0) sec Sample Site ABG pH (7.35-7.45) ABG pCO2 (35-45) mmHg ABG pO2 (83-108) mmHg ABG HCO3 (21-25) mmol/L ABG Total CO2 (19-24) mmol/L ABG O2 Saturation (94-97) % ABG Base Excess mmol/L Shen Test FiO2 % Sodium 131 L (137-145) mmol/L Potassium 4.0 (3.5-5.1) mmol/L Chloride 102 (98-107) mmol/L Carbon Dioxide 18 L (22-30) mmol/L Anion Gap 11 mmol/L BUN 19 (9-20) mg/dL Creatinine 1.14 (0.66-1.25) mg/dL Est GFR (CKD-EPI)AfAm 79 (>60 ml/min/1.73 sqM) Est GFR (CKD-EPI)NonAf 68 (>60 ml/min/1.73 sqM) Glucose 257 H (74-99) mg/dL Calcium 8.8 (8.4-10.2) mg/dL Magnesium 2.1 (1.6-2.3) mg/dL Total Bilirubin 1.4 H (0.2-1.3) mg/dL AST 226 H (17-59) U/L ALT 198 H (4-49) U/L Alkaline Phosphatase 170 H (38-126) U/L Troponin I (0.000-0.034) ng/mL Total Protein 6.6 (6.3-8.2) g/dL Albumin 4.0 (3.5-5.0) g/dL 01/08/24 01/08/24 Range/Units 00:37 01:55 WBC (3.8-10.6) k/uL RBC (4.30-5.90) m/uL Hgb (13.0-17.5) gm/dL Hct (39.0-53.0) % MCV (80.0-100.0) fL MCH (25.0-35.0) pg MCHC (31.0-37.0) g/dL RDW (11.5-15.5) % Plt Count (150-450) k/uL MPV Neutrophils % % Lymphocytes % % Monocytes % % Eosinophils % % Basophils % % Neutrophils # (1.3-7.7) k/uL Lymphocytes # (1.0-4.8) k/uL Monocytes # (0-1.0) k/uL Eosinophils # (0-0.7) k/uL Basophils # (0-0.2) k/uL PT (10.0-12.5) sec INR (<1.2) APTT (22.0-30.0) sec Sample Site L radial ABG pH 7.44 (7.35-7.45) ABG pCO2 28 L (35-45) mmHg ABG pO2 135 H (83-108) mmHg ABG HCO3 19 L (21-25) mmol/L ABG Total CO2 20 (19-24) mmol/L ABG O2 Saturation 99.2 H (94-97) % ABG Base Excess -5.4 mmol/L Shen Test Yes FiO2 100 % Sodium (137-145) mmol/L Potassium (3.5-5.1) mmol/L Chloride (98-107) mmol/L Carbon Dioxide (22-30) mmol/L Anion Gap mmol/L BUN (9-20) mg/dL Creatinine (0.66-1.25) mg/dL Est GFR (CKD-EPI)AfAm (>60 ml/min/1.73 sqM) Est GFR (CKD-EPI)NonAf (>60 ml/min/1.73 sqM) Glucose (74-99) mg/dL Calcium (8.4-10.2) mg/dL Magnesium (1.6-2.3) mg/dL Total Bilirubin (0.2-1.3) mg/dL AST (17-59) U/L ALT (4-49) U/L Alkaline Phosphatase (38-126) U/L Troponin I 0.028 (0.000-0.034) ng/mL Total Protein (6.3-8.2) g/dL Albumin (3.5-5.0) g/dL Critical Care Time Critical Care Time: Yes Total Critical Care Time: 60 Disposition Clinical Impression: COPD (chronic obstructive pulmonary disease), Pneumonia Dis[facility] Condition: Critical Referrals: Je Gonzales MD [Primary Care Provider] - 1-2 days
--- NOTE | 2024-01-08 01:33 | CT ---
EXAMINATION TYPE: CT chest angio for PE DATE OF EXAM: 01/08/2024 COMPARISON: NONE HISTORY: R/O PE and/or DISSECTION. PT BECAME ALTERED AND O2 SAT VERY LOW. PT INTUBATED. chest pain th at started a few PD, cough, congestion, and increased hours ago. pt states that the chest pain is con stant and sharp. pt also states has pain in the shoulders. Pt reports that he has a hx of course diff iculty breathing. pt refused to come via ambulance that was called and family brought the pt in. CT DLP: 802.8 mGycm. Automated Exposure Control for Dose Reduction was Utilized. CONTRAST: CTA scan of the thorax is performed with IV Contrast, patient injected with 100 mL of Isovue 370, pul monary embolism protocol. MIP Images are created on CT scanner and reviewed. FINDINGS: LUNGS: Small to borderline moderate sized bilateral pleural effusions. There are additional multifoca l groundglass opacities and areas of organizing consolidation throughout the bilateral upper and lowe r lungs. Endotracheal tube terminates just above the aortic knob satisfactory in position. No pneumot horax is seen bilaterally. MEDIASTINUM: Orogastric tube projects below diaphragm. Suboptimal study with most dense contrast in the SVC and aorta. No central saddle pulmonary embolism. Cannot entirely exclude segmental or subseg mental PE on this exam. No linear hypodensity to suggest dissection in the aorta. Three-vessel origin from the aortic arch. Moderate mixed plaque in the infrarenal abdominal aorta. No AAA. Ascending aor ta measures up to 3.8 cm in diameter. No cardiomegaly or pericardial effusion is seen. Coronary arter y calcification is present. OTHER: Liver is diffusely low dense suggesting fatty infiltrative hepatocellular disease. Contracted gallbladder has edematous wall thickening. IMPRESSION: 1. Suboptimal study without central saddle pulmonary embolism. Cannot entirely exclude segmental or s ubsegmental acute PE. 2. No aortic dissection. 3. Small moderate sized bilateral pleural effusions. Bilateral multifocal groundglass opacities and f ocal consolidations. Consider fluid overload state and acute infectious process. Correlate clinically .
[2024-01-08 01:40] LABS: Allen Test Performed? Yes
[2024-01-08 01:59] LABS: ABG PCO2 28 mmHg (35-45); ABG PH 7.44 (7.35-7.45); ABG PO2 135 mmHg (83-108)
[2024-01-08 02:00] LABS: ABG Base Excess -5.4 mmol/L; ABG HCO3 19 mmol/L (21-25); ABG Oxygen Saturation 99.2 % (94-97); ABG TCO2 20 mmol/L (19-24)
[2024-01-08] MEDS: cefTRIAXone IN SWFI 1,000 MG/10 ML SYRINGE IVP STA (02:04)
[2024-01-08] MEDS ORDERED: NALOXONE 0.4 MG/ML 1 ML VIAL IV PRN (02:05)
[2024-01-08] MEDS: AZITHROMYCIN 500 MG in SODIUM CHLORIDE 0.9% 250 ML IVPB STA (02:29)
[2024-01-08] MEDS: SODIUM CHLORIDE 0.9% 1,000 ML IV ONE ×2 (02:30→04:03)
[2024-01-08] MEDS: SODIUM CHLORIDE 0.9% 1,000 ML IV SCH (02:50)
[2024-01-08] MEDS: fentaNYL (PF). 1,000 MCG in SODIUM CHLORIDE 0.9% 80 ML IV SCH (04:19)
[2024-01-08 06:08] LABS: ABG Base Excess -6.8 mmol/L; ABG HCO3 19 mmol/L (21-25); ABG Oxygen Saturation 98.5 % (94-97); ABG PCO2 38 mmHg (35-45); ABG PH 7.32 (7.35-7.45); ABG PO2 153 mmHg (83-108); ABG TCO2 21 mmol/L (19-24); Allen Test Performed? Yes
[2024-01-08] MEDS ORDERED: IPRATROPIUM-ALBUTEROL 3 ML NEB INHALATION PRN (07:57)
[2024-01-08] MEDS: BUDESONIDE 1 MG/2 ML NEBU INHALATION SCH (08:17)
[2024-01-08] MEDS: FORMOTEROL FUMARATE 20 MCG/2 ML NEBU INHALATION SCH (08:17)
[2024-01-08] MEDS: IPRATROPIUM-ALBUTEROL 3 ML NEB INHALATION SCH (08:17)
[2024-01-08] MEDS ORDERED: NALOXONE 0.4 MG/ML 1 ML VIAL IVP PRN (09:27)
--- NOTE | 2024-01-08 11:15 | P.CNPUL ---
History of Present Illness Consult date: 01/08/24 Requesting physician: Devon Adame Reason for consult: other (Critical care/ventilator management) History of present illness: This is a 63-year-old male patient who presented to the ER just after midnight today with complaints of chest pain shortness of breath cough congestion. He had stated he had start sharp stabbing pain in the left chest progressively worsening shortness of breath. Apparently he refused to come by EMS that had been called. He came in by family car. He was noted to be davis, pale diaphoretic, tachypneic and tachycardic and severe respiratory distress. Initial trial of BiPAP and Ativan failed and the patient was intubated and placed on the mechanical ventilator. CT angio gram was suboptimal. No central saddle pulmonary embolism. Could not exclude segmental or subsegmental PE. No aortic dissection. There are small to moderate-sized bilateral pleural effusions. Bilateral multifocal glass opacities and focal consolidations. EKG revealed sinus tachycardia without significant ST or T wave abnormalities. White count 13.3. Hemoglobin 16.3. Platelets 266. Sodium 131. Potassium 4.0. Bicarb 18. BUN 19. Creatinine 1.14. Glucose 257. Magnesium 2.1. AST 226. ALT 198. Initial troponin 0.028. Then 0.088. proBNP 12,500. Viral screen was negative. He is intubated on mechanical ventilator currently on assist-control mode at a rate of 20, tidal volume 450, FiO2 40% and a PEEP of 5. Most recent arterial blood gases revealed a PaO2 of 153, pCO2 38 and a pH of 7.38. He is on propofol at 15 mcg/kg/min. Fentanyl drip at 1 mcg/kg/h. Receive ceftriaxone and azithromycin. Review of Systems ROS unobtainable: due to endotracheal tube Past Medical History Past Medical History: Chest Pain / Angina, COPD, Diabetes Mellitus, Hypertension History of Any Multi-Drug Resistant Organisms: None Reported Past Surgical History: Hernia Repair Additional Past Surgical History / Comment(s): [place] teeth pulled only. Additional Past Anesthesia/Blood Transfusion Reaction / Comment(s): Never had anesthesia Past Psychological History: No Psychological Hx Reported Smoking Status: Current every day smoker Past Alcohol Use History: Occasional Past Drug Use History: None Reported - Past Family History Mother Family Medical History: No Reported History Father Family Medical History: Cancer Additional Family Medical History / Comment(s): Unknown Medications and Allergies Home Medications Medication Instructions Recorded Confirmed Type Albuterol Inhaler [Ventolin Hfa 2 puff INHALATION DIRECTED PRN 01/08/24 01/08/24 History Inhaler] predniSONE 60 mg PO DIRECTED 01/08/24 01/08/24 History Allergies Allergy/AdvReac Type Severity Reaction Status Date / Time No Known Allergies Allergy Verified 01/08/24 10:00 Physical Exam Vitals: Vital Signs Temp Pulse Resp BP Pulse Ox FiO2 01/08/24 10:00 86 18 125/89 99 01/08/24 09:00 78 18 113/77 99 01/08/24 08:43 62 01/08/24 08:32 62 01/08/24 08:24 40 01/08/24 08:18 62 01/08/24 08:00 63 20 107/72 98 01/08/24 06:12 40 01/08/24 05:42 96.0 F L 01/08/24 05:30 67 20 118/81 99 01/08/24 05:13 50 01/08/24 05:00 65 20 111/76 99 01/08/24 04:45 67 20 107/78 99 01/08/24 04:30 68 20 97/70 99 01/08/24 04:15 70 20 85/62 97 01/08/24 04:00 68 20 73/53 97 01/08/24 03:45 75 20 78/55 96 01/08/24 03:40 74 20 79/55 96 01/08/24 03:35 75 20 79/61 96 01/08/24 03:30 75 20 85/62 95 01/08/24 03:25 78 20 86/64 96 01/08/24 03:20 77 20 89/64 98 01/08/24 03:18 60 01/08/24 03:15 79 20 98/73 98 01/08/24 03:10 82 20 111/80 97 01/08/24 03:00 96 20 94/64 98 01/08/24 02:55 77 20 94/64 98 01/08/24 02:50 79 17 99/69 99 01/08/24 02:45 79 21 101/66 99 01/08/24 02:40 79 16 102/65 100 01/08/24 02:35 80 20 107/70 100 01/08/24 02:30 81 21 124/83 99 01/08/24 02:25 90 26 H 143/94 97 01/08/24 02:20 93 20 95/62 96 01/08/24 02:15 84 20 95/64 98 01/08/24 02:10 84 20 91/63 96 01/08/24 02:05 85 26 H 100/69 95 01/08/24 02:00 86 24 115/78 97 80 01/08/24 01:55 93 28 H 131/92 97 01/08/24 01:50 90 27 H 113/75 96 01/08/24 01:45 92 24 122/77 97 01/08/24 01:43 91 30 H 122/77 98 01/08/24 01:28 100 01/08/24 01:23 100 01/08/24 00:45 125 H 34 H 201/156 92 L 01/08/24 00:21 125 H 20 205/137 86 L Intake and Output 01/07/24 01/08/24 01/08/24 22:59 06:59 14:59 Intake Total 50.828 23.101 Balance 50.828 23.101 Intake: Intake, IV Titration 50.828 23.101 Amount fentaNYL (PF). 1,000 mcg 6.294 In Sodium Chloride 0.9% 80 ml @ 0.5 MCG/KG/HR 3. 402 mls/hr IV .Q24H BRUNO Rx#:[id number] propofoL 1,000 mg In 44.534 23.101 Empty Bag 1 bag @ 15 MCG/ KG/MIN 6.124 mls/hr IV . [id number] BRUNO Rx#:[id number] Other: Weight 68.039 kg GENERAL EXAM: Intubated, sedated 63-year-old male patient on the mechanical ventilator, in no apparent distress. HEAD: Normocephalic. EYES: Sluggish reaction of pupils, equal size. NOSE: Clear with pink turbinates. THROAT: Oral endotracheal and gastric tube and no erythema or exudates. NECK: No masses, no JVD. CHEST: No chest wall deformity. LUNGS: Equal air entry with scattered rhonchi, crackles in the bases. CVS: S1 and S2 normal with no audible murmur, regular rhythm. ABDOMEN: No hepatosplenomegaly, normal bowel sounds, no guarding or rigidity. SPINE: No scoliosis or deformity SKIN: No rashes CENTRAL NERVOUS SYSTEM: Sedated, tone is normal in all 4 extremities. EXTREMITIES: There is no peripheral edema. No clubbing, no cyanosis. Peripheral pulses are intact. Results - Laboratory Findings CBC and BMP: 01/08/24 00:37 01/08/24 00:37 ABG ABG pH 7.32 (7.35-7.45) L 01/08/24 06:04 ABG pCO2 38 mmHg (35-45) 01/08/24 06:04 ABG pO2 153 mmHg (83-108) H 01/08/24 06:04 ABG O2 Saturation 98.5 % (94-97) H 01/08/24 06:04 PT/INR, D-dimer PT 11.2 sec (10.0-12.5) 01/08/24 00:37 INR 1.0 (<1.2) 01/08/24 00:37 Abnormal lab findings: Abnormal Labs 01/08/24 01/08/24 01/08/24 00:37 00:37 01:55 WBC 13.3 H Neutrophils # 9.0 H ABG pH ABG pCO2 28 L ABG pO2 135 H ABG HCO3 19 L ABG O2 Saturation 99.2 H Sodium 131 L Carbon Dioxide 18 L Glucose 257 H Total Bilirubin 1.4 H AST 226 H ALT 198 H Alkaline Phosphatase 170 H Troponin I 01/08/24 01/08/24 05:43 06:04 WBC Neutrophils # ABG pH 7.32 L ABG pCO2 ABG pO2 153 H ABG HCO3 19 L ABG O2 Saturation 98.5 H Sodium Carbon Dioxide Glucose Total Bilirubin AST ALT Alkaline Phosphatase Troponin I 0.088 H* - Diagnostic Findings Chest x-ray: image reviewed CT scan - chest: image reviewed Assessment and Plan Assessment: Acute hypoxic respiratory failure requiring intubation and mechanical ventilatory support possibly secondary to fluid volume overload and/or community-acquired pneumonia Transaminitis Troponin leak No other history available Plan: The patient is seen and evaluated Chest x-ray, ABGs, labs and medications reviewed Check a procalcitonin Check a proBNP Echocardiogram pending Continue ceftriaxone and azithromycin for now Add DuoNeb inhalations, Pulmicort and Performist inhalations, Solu-Medrol Continue on propofol and fentanyl Admit to the intensive care unit We will continue to follow and make further recommendations based on his c linical status I have personally seen and examined the patient, performed the documentation and the assessment and plan as written. Number of minutes spent on the visit: 20.
[2024-01-08] MEDS: methylPREDNISolone SOD SUCCI 40 MG/ML 1 ML VIAL IV SCH (13:22)
--- NOTE | 2024-01-08 14:45 | P.HPIM ---
History of Present Illness H&P Date: 01/08/24 History of present illness; patient is a 63-year-old gentleman with past medically significant for COPD was brought to the ER for respiratory distress. History was taken from patient's family according to them patient has been complaining of increased cough and shortness of breath for the last day. Patient also started complaining of left-sided chest pain which is sharp, constant, nonradiating, no aggravating or relieving associated with this chest pain. Patient was complaining of worsening shortness of breath. Patient was brought to the ER by family. In the ER, patient was found to be tachypneic, diaphoretic and tachycardic, initially patient was given trial on BiPAP but was initially intubated as he was not tolerating the BiPAP. Initial lab work done in the ER showed WBC 13.3, hemoglobin 16.3, platelet count 266, INR 1, sodium 131, potassium 4, BUN 19, creatinine 1.14, glucose 257, bilirubin 1.4, AST 26, ALT 198, alk phosphatase 170 troponin 0.088 Influenza A not detected Influenza B not detected RSV not detected COVID-19 not detected EKG done in the ER showed heart rate of 127, UT 124, QRS 82, no ST segment elevation or depression seen, no T-wave inversions seen. Chest x-ray done in the ER showed new central opacities favoring mild to moderate edema versus developing acute infiltrates. Correlate clinically CT chest done PE protocol done showed suboptimal study without central saddle pulmonary embolism, no aortic dissection. Small moderate-sized bilateral pleural effusion, bilateral multifocal groundglass opacities and consolidation seen Patient admitted to ICU REVIEW OF SYSTEMS: Cannot be obtained as patient currently intubated and sedated PHYSICAL EXAMINATION: GENERAL: The patient is intubated and sedated, HEENT: Pupils are round and equally reacting to light. EOMI. No scleral icterus. No conjunctival pallor. Normocephalic, atraumatic. No pharyngeal erythema. No thyromegaly. CARDIOVASCULAR: S1 and S2 present. No murmurs, rubs, or gallops. PULMONARY: Chest is clear to auscultation, no wheezing or crackles. ABDOMEN: Soft, nontender, nondistended, normoactive bowel sounds. No palpable organomegaly. MUSCULOSKELETAL: No joint swelling or deformity. EXTREMITIES: No cyanosis, clubbing, or pedal edema. NEUROLOGICAL: Intubated SKIN: No rashes. Assessment and plan Acute hypoxemic respiratory failure Acute COPD exacerbation Elevated LFTs Elevated troponin Monitor vital signs Monitor CBC Monitor CMP Continue telemetry monitoring Ordered blood cultures Trend troponins. Aggressive bronchopulmonary hygiene Continue vent management per ICU Continue breathing treatments Continue IV Rocephin azithromycin continue IV Solu-Medrol Ordered 2D echo Consult cardiology Consult ICU. Labs and medication were reviewed.. Continue same treatment. Continue with symptomatic treatment. Resume home medication. Monitor labs and vitals. DVT and GI prophylaxis. Further recommendations as per clinical course of the patient Dictation was produced using [employer] dictation software. please excuse any grammatical, word or spelling errors. Past Medical History Past Medical History: Chest Pain / Angina, COPD, Diabetes Mellitus, Hypertension History of Any Multi-Drug Resistant Organisms: None Reported Past Surgical History: Hernia Repair Additional Past Surgical History / Comment(s): [place] teeth pulled only. Additional Past Anesthesia/Blood Transfusion Reaction / Comment(s): Never had anesthesia Past Psychological History: No Psychological Hx Reported Smoking Status: Current every day smoker Past Alcohol Use History: Occasional Past Drug Use History: None Reported - Past Family History Mother Family Medical History: No Reported History Father Family Medical History: Cancer Additional Family Medical History / Comment(s): Unknown Medications and Allergies Home Medications Medication Instructions Recorded Confirmed Type Albuterol Inhaler [Ventolin Hfa 2 puff INHALATION DIRECTED PRN 01/08/24 01/08/24 History Inhaler] predniSONE 60 mg PO DIRECTED 01/08/24 01/08/24 History Allergies Allergy/AdvReac Type Severity Reaction Status Date / Time No Known Allergies Allergy Verified 01/08/24 10:00 Physical Exam Vitals: Vital Signs Temp Pulse Resp BP Pulse Ox FiO2 01/08/24 09:00 78 18 113/77 99 01/08/24 08:43 62 01/08/24 08:32 62 01/08/24 08:24 40 01/08/24 08:18 62 01/08/24 08:00 63 20 107/72 98 01/08/24 06:12 40 01/08/24 05:42 96.0 F L 01/08/24 05:30 67 20 118/81 99 01/08/24 05:13 50 01/08/24 05:00 65 20 111/76 99 04/05/24 04:45 67 20 107/78 99 04/05/24 04:30 68 20 97/70 99 04/05/24 04:15 70 20 85/62 97 05/24 04:00 68 20 73/53 97 /05/24 03:45 75 20 78/55 96 0524 03:40 74 20 79/55 96 /05/24 03:35 75 20 79/61 96 /05/24 03:30 75 20 85/62 95 /05/24 03:25 78 20 86/64 96 /05/24 03:20 77 20 89/64 98 /05/24 03:18 60 0405 03:15 79 20 98/73 98 /05/ 03:10 82 20 111/80 97 05 03:00 96 20 94/64 98 01/08/24 02:55 77 20 94/64 98 /05/24 02:50 79 17 99/69 99 05/ 02:45 79 21 101/66 99 05 02:40 79 16 102/65 100 05 02:35 80 20 107/70 100 /05/ 02:30 81 21 124/83 99 05 02:25 90 26 H 143/94 97 05 02:20 93 20 95/62 96 05 02:15 84 20 95/64 98 05/ 02:10 84 20 91/63 96 05 02:05 85 26 H 100/69 95 05 02:00 86 24 115/78 97 80 05 01:55 93 28 H 131/92 97 05 01:50 90 27 H 113/75 96 0524 01:45 92 24 122/77 97 040524 01:43 91 30 H 122/77 98 0524 01:28 100 01/08/24 01:23 100 01/08/24 00:45 125 H 34 H 201/156 92 L 01/08/24 00:21 125 H 20 205/137 86 L Intake and Output 01/07/24 01/08/24 01/08/24 22:59 06:59 14:59 Intake Total 50.828 Balance 50.828 Intake: Intake, IV Titration 50.828 Amount fentaNYL (PF). 1,000 mcg 6.294 In Sodium Chloride 0.9% 80 ml @ 0.5 MCG/KG/HR 3. 402 mls/hr IV .Q24H [facility] Rx#:[id number] propofoL 1,000 mg In 44.534 Empty Bag 1 bag @ 15 MCG/ KG/MIN 6.124 mls/hr IV . [id number] [facility] Rx#:[id number] Other: Weight 68.039 kg Results CBC & Chem 7: 01/08/24 00:37 01/08/24 00:37 Labs: Abnormal Lab Results - Last 24 Hours (Table) 01/08/24 01/08/24 01/08/24 Range/Units 00:37 00:37 01:55 WBC 13.3 H (3.8-10.6) k/uL Neutrophils # 9.0 H (1.3-7.7) k/uL ABG pH (7.35-7.45) ABG pCO2 28 L (35-45) mmHg ABG pO2 135 H (83-108) mmHg ABG HCO3 19 L (21-25) mmol/L ABG O2 Saturation 99.2 H (94-97) % Sodium 131 L (137-145) mmol/L Carbon Dioxide 18 L (22-30) mmol/L Glucose 257 H (74-99) mg/dL Total Bilirubin 1.4 H (0.2-1.3) mg/dL AST 226 H (17-59) U/L ALT 198 H (4-49) U/L Alkaline Phosphatase 170 H (38-126) U/L Troponin I (0.000-0.034) ng/mL 01/08/24 01/08/24 Range/Units 05:43 06:04 WBC (3.8-10.6) k/uL Neutrophils # (1.3-7.7) k/uL ABG pH 7.32 L (7.35-7.45) ABG pCO2 (35-45) mmHg ABG pO2 153 H (83-108) mmHg ABG HCO3 19 L (21-25) mmol/L ABG O2 Saturation 98.5 H (94-97) % Sodium (137-145) mmol/L Carbon Dioxide (22-30) mmol/L Glucose (74-99) mg/dL Total Bilirubin (0.2-1.3) mg/dL AST (17-59) U/L ALT (4-49) U/L Alkaline Phosphatase (38-126) U/L Troponin I 0.088 H* (0.000-0.034) ng/mL
--- NOTE | 2024-01-08 15:25 | CA ---
Transthoracic Echo Report Name: Bk Patel Age: 63 Gender: M : 1960 Exam Date: 01/08/2024 11:16 Exam Location: [facility] Ht (in): 70 Wt (lb): 150 Ordering Physician: Vitaliy Rosario MD Attending/Referring Phys: Inside Plant Supervisor Valarie Miles RDCS Procedure CPT: Indications: SHORTNESS OF BREATH Cardiac Hx: Technical Quality: Good Contrast 1: Total Dose (mL): Contrast 2: Total Dose (mL): MEASUREMENTS (Male / Female) Normal Values 2D ECHO LV Diastolic Diameter PLAX 5.5 cm 4.2 - 5.9 / 3.9 - 5.3 cm LV Systolic Diameter PLAX 4.5 cm IVS Diastolic Thickness 1.2 cm 0.6 - 1.0 / 0.6 - 0.9 cm LVPW Diastolic Thickness 1.3 cm 0.6 - 1.0 / 0.6 - 0.9 cm LV Relative Wall Thickness 0.5 RV Internal Dim ED PLAX 3.3 cm LA Systolic Diameter LX 5.0 cm 3.0 - 4.0 / 2.7 - 3.8 cm LV Diastolic Volume MOD 4C 92.3 cm??? LV Systolic Volume MOD 4C 62.0 cm??? LV Ejection Fraction MOD 4C 32.8 % LV Cardiac Index MOD 4C 1289.1 cm???/min???m??? LV Diastolic Length 4C 8.7 cm LV Systolic Length 4C 7.5 cm LV Diastolic Volume MOD 2C 155.4 cm??? LV Systolic Volume MOD 2C 105.1 cm??? LV Ejection Fraction MOD 2C 32.4 % LV Cardiac Index MOD 2C 2142.7 cm???/min???m??? LV Diastolic Length 2C 9.1 cm LV Systolic Length 2C 8.4 cm LA Volume 82.8 cm??? 18 - 58 / 22 - 52 cm??? LA Volume Index 45.2 cm???/m??? 16 - 28 cm???/m??? M-MODE Aortic Root Diameter MM 3.5 cm MV E Point Septal Separation 1.4 cm AV Cusp Separation MM 2.3 cm DOPPLER AV Peak Velocity 85.2 cm/s AV Peak Gradient 2.9 mmHg MV Area PHT 6.6 cm??? Mitral E Point Velocity 82.6 cm/s Mitral A Point Velocity 53.5 cm/s Mitral E to A Ratio 1.5 MV Deceleration Time 114.7 ms TR Peak Velocity 257.8 cm/s TR Peak Gradient 26.6 mmHg Right Ventricular Systolic Press 41.3 mmHg FINDINGS Left Ventricle Left ventricular ejection fraction is estimated at 30 %. Left ventricular cavity size normal. Mildly increased septal wall thickness. Global left ventricular hypokinesis. Moderately reduced global left ventricular systolic function. Right Ventricle Mild right ventricular dilatation. Mild pulmonary hypertension. Right Atrium Normal right atrial size. Left Atrium Moderately increased left atrial diameter. Severely increased left atrial volume. Mildly increased left atrial area. Mitral Valve Structurally normal mitral valve. Trace mitral regurgitation. Aortic Valve Trileaflet aortic valve. No aortic valve stenosis or regurgitation. Tricuspid Valve Structurally normal tricuspid valve. Mild tricuspid regurgitation. Pulmonic Valve Structurally normal pulmonic valve. Pericardium No pericardial effusion. Pleural effusion. Aorta Normal size aortic root and proximal ascending aorta. CONCLUSIONS Left ventricular ejection fraction 30% Mildly increased left ventricular wall thickness RVSP 41 Moderately dilated left atrium Trace mitral regurgitation Y mild tricuspid regurgitation No pericardial effusion Previewed by: Dr. Dm Huber DO (Electronically Signed) Final Date: 08 January 2024 15:24
[2024-01-08 17:10] LABS: Glucose,Whole Blood 82 mg/dL (70-110)
[2024-01-08] MEDS: FUROSEMIDE 10 MG/ML 4 ML VIAL IV STA (17:47)
[2024-01-08 19:17] LABS: Basophils % (A) 0 %; Eosinophils % (A) 0 %; HCT 44.8 % (39.0-53.0); HGB 13.9 gm/dL (13.0-17.5); Lymphocytes # (A) 0.5 k/uL (1.0-4.8); Lymphocytes % (A) 5 %; MCV 96.8 fL (80.0-100.0); Mean Platelet Volume 8.8; Monocytes # (A) 0.1 k/uL (0-1.0); Monocytes % (A) 2 %; Neutrophils # (A) 8.4 k/uL (1.3-7.7); Neutrophils % (A) 93 %; Platelet Count 199 k/uL (150-450); RBC 4.63 m/uL (4.30-5.90); RDW 13.8 % (11.5-15.5); WBC 9.1 k/uL (3.8-10.6)
[2024-01-08 19:29] LABS: African American GFR (CKD) >90 (>60 ml/min/1.73 sqM); Anion Gap 5 mmol/L; Blood Urea Nitrogen 16 mg/dL (9-20); Carbon Dioxide 19 mmol/L (22-30); Chloride 113 mmol/L (98-107); Glucose 98 mg/dL (74-99); Magnesium 1.9 mg/dL (1.6-2.3); Non-African American GFR(CKD) 86 (>60 ml/min/1.73 sqM); Potassium 4.5 mmol/L (3.5-5.1); Sodium 137 mmol/L (137-145)
[2024-01-09 00:40] LABS: Glucose,Whole Blood 117 mg/dL (70-110)
[2024-01-09 04:52] LABS: Basophils % (A) 0 %; Eosinophils % (A) 0 %; HCT 44.3 % (39.0-53.0); HGB 13.8 gm/dL (13.0-17.5); Lymphocytes # (A) 0.6 k/uL (1.0-4.8); Lymphocytes % (A) 9 %; MCH 30.3 pg (25.0-35.0); MCHC 31.2 g/dL (31.0-37.0); MCV 97.1 fL (80.0-100.0); Monocytes # (A) 0.1 k/uL (0-1.0); Monocytes % (A) 1 %; Neutrophils # (A) 5.5 k/uL (1.3-7.7); Neutrophils % (A) 89 %; Platelet Count 208 k/uL (150-450); RBC 4.57 m/uL (4.30-5.90); RDW 13.7 % (11.5-15.5); WBC 6.1 k/uL (3.8-10.6)
[2024-01-09 05:00] LABS: African American GFR (CKD) >90 (>60 ml/min/1.73 sqM); Anion Gap 8 mmol/L; Blood Urea Nitrogen 17 mg/dL (9-20); Calcium 8.2 mg/dL (8.4-10.2); Carbon Dioxide 19 mmol/L (22-30); Chloride 110 mmol/L (98-107); Glucose 126 mg/dL (74-99); Non-African American GFR(CKD) 83 (>60 ml/min/1.73 sqM); Potassium 4.5 mmol/L (3.5-5.1); Sodium 137 mmol/L (137-145)
[2024-01-09 06:15] LABS: ABG Base Excess -3.3 mmol/L; ABG HCO3 23 mmol/L (21-25); ABG Oxygen Saturation 97.1 % (94-97); ABG PCO2 48 mmHg (35-45); ABG PH 7.29 (7.35-7.45); ABG PO2 89 mmHg (83-108); ABG TCO2 25 mmol/L (19-24); Allen Test Performed? Yes
[2024-01-09 06:24] LABS: Glucose,Whole Blood 135 mg/dL (70-110)
--- NOTE | 2024-01-09 07:54 | XR ---
EXAMINATION TYPE: XR chest 1V portable DATE OF EXAM: 01/09/2024 COMPARISON: 01/08/2024 HISTORY: SOB, Follow Up FINDINGS: Endotracheal tube has been repositioned with distal tip 6.4 cm from the elle. NG tube is seen cours ing into the stomach. Scattered perihilar and basilar infiltrates as well as small effusions persist. Stable appearance of the cardio-mediastinal structures at this time. Pleural effusion unchanged. IMPRESSION: 1. Stable portable chest. Clinical correlation and follow up until resolution is recommended.
[2024-01-09] MEDS: PANTOPRAZOLE 40 MG/10 ML VIAL IV SCH (08:26)
[2024-01-09] MEDS: AZITHROMYCIN 500 MG in SODIUM CHLORIDE 0.9% 250 ML IVPB SCH (08:26)
[2024-01-09] MEDS: FUROSEMIDE 10 MG/ML 2 ML VIAL IV ONE (08:27)
[2024-01-09] MEDS: LORazepam 2 MG/ML INJ IV PRN (09:30)
[2024-01-09 11:57] LABS: Glucose,Whole Blood 159 mg/dL (70-110)
--- NOTE | 2024-01-09 12:04 | P.PN ---
Subjective Progress Note Date: 01/09/24 This is a 63-year-old male patient who presented to the ER just after midnight today with complaints of chest pain shortness of breath cough congestion. He had stated he had start sharp stabbing pain in the left chest progressively worsening shortness of breath. Apparently he refused to come by EMS that had been called. He came in by family car. He was noted to be davis, pale diaphoretic, tachypneic and tachycardic and severe respiratory distress. Initial trial of BiPAP and Ativan failed and the patient was intubated and placed on the mechanical ventilator. CT angio gram was suboptimal. No central saddle pulmonary embolism. Could not exclude segmental or subsegmental PE. No aortic dissection. There are small to moderate-sized bilateral pleural effusions. Bilateral multifocal glass opacities and focal consolidations. EKG revealed sinus tachycardia without significant ST or T wave abnormalities. White count 13.3. Hemoglobin 16.3. Platelets 266. Sodium 131. Potassium 4.0. Bicarb 18. BUN 19. Creatinine 1.14. Glucose 257. Magnesium 2.1. AST 226. ALT 198. Initial troponin 0.028. Then 0.088. proBNP 12,500. Viral screen was negative. He is intubated on mechanical ventilator currently on assist-control mode at a rate of 20, tidal volume 450, FiO2 40% and a PEEP of 5. Most recent arterial blood gases revealed a PaO2 of 153, pCO2 38 and a pH of 7.38. He is on propofol at 15 mcg/kg/min. Fentanyl drip at 1 mcg/kg/h. Receive ceftriaxone and azithromycin. The patient is seen today January 09, 2024 in follow-up in the intensive care unit. He remains intubated on mechanical ventilator at assist-control rate of 20, tidal volume 450, FiO2 40% and a PEEP of 5. Morning blood gases revealed a PaO2 of 89, pCO2 of 48 and a pH of 7.29. He remains on propofol at 25 mcg/kg/min. Fentanyl at 1 mcg/kg/h. He is continued on DuoNeb ventilations, Pulmicort and performing scintillations, Solu-Medrol. White count 6.1. Hemoglobin 13.8. Platelets 208. Sodium 137. Potassium 4.5. Bicarb 19. BUN 17. Creatinine 0.97. Glucose 126. Echocardiogram reveals a left ventricular systolic ejection fraction of 30%. There is global left ventricular hypokinesia. Chest x-ray reveals scattered perihilar and basilar infiltrates with small pleural effusions. Stable compared to previous. He was given 20 mg of Lasix IV push this morning. Currently in a -1.8 L balance. Objective - Vital Signs Vital signs: Vital Signs Temp 98.8 F 01/09/24 08:00 Pulse 90 01/09/24 11:41 Resp 20 01/09/24 11:00 BP 83/46 01/09/24 11:00 Pulse Ox 94 L 01/09/24 11:00 FiO2 40 01/09/24 11:30 Intake & Output 01/08/24 01/09/24 01/09/24 18:59 06:59 18:59 Intake Total 158.659 367.248 351.437 Output Total 840 1495 350 Balance -681.341 -1127.752 1.437 Weight 82.1 kg 82.1 kg Intake: IV 50 300 Azithromycin 500 mg In 250 Sodium Chloride 0.9% 250 ml @ 250 mls/hr IVPB DAILY [facility] Rx#:[id number] cefTRIAXone 1 gm In 50 50 Sodium Chloride 0.9% 50 ml @ 100 mls/hr IVPB Q12HR [facility] Rx#:[id number] Intake, IV Titration 158.659 317.248 51.437 Amount fentaNYL (PF). 1,000 mcg 70.308 102.722 In Sodium Chloride 0.9% 80 ml @ 0.5 MCG/KG/HR 3. 402 mls/hr IV .Q24H [facility] Rx#:[id number] propofoL 1,000 mg In 88.351 114.526 Empty Bag 1 bag @ 15 MCG/ KG/MIN 6.124 mls/hr IV . [id number] [facility] Rx#:[id number] propofoL 1,000 mg In 100.000 51.437 Empty Bag 1 bag @ 15 MCG/ KG/MIN 6.124 mls/hr IV . [id number] [facility] Rx#:[id number] Output: Urine 840 1495 350 Other: Voiding Method Indwelling Catheter Indwelling Catheter Indwelling Catheter - Exam GENERAL EXAM: Intubated, sedated 63-year-old male, on the mechanical ventilator, in no apparent distress. HEAD: Normocephalic. EYES: Sluggish reaction of pupils, equal size. NOSE: Clear with pink turbinates. THROAT: Oral endotracheal and gastric tube and no erythema or exudates. NECK: No masses, no JVD. CHEST: No chest wall deformity. LUNGS: Equal air entry with scattered rhonchi, crackles in the bases. CVS: S1 and S2 normal with no audible murmur, regular rhythm. ABDOMEN: No hepatosplenomegaly, normal bowel sounds, no guarding or rigidity. SPINE: No scoliosis or deformity SKIN: No rashes CENTRAL NERVOUS SYSTEM: Sedated, tone is normal in all 4 extremities. EXTREMITIES: There is no peripheral edema. No clubbing, no cyanosis. Peripheral pulses are intact. - Labs CBC & Chem 7: 01/09/24 04:21 01/09/24 04:21 Labs: Abnormal Lab Results - Last 24 Hours (Table) 01/08/24 01/08/24 01/08/24 Range/Units 12:35 18:51 18:51 Neutrophils # 8.4 H (1.3-7.7) k/uL Lymphocytes # 0.5 L (1.0-4.8) k/uL ABG pH (7.35-7.45) ABG pCO2 (35-45) mmHg ABG Total CO2 (19-24) mmol/L ABG O2 Saturation (94-97) % Chloride 113 H (98-107) mmol/L Carbon Dioxide 19 L (22-30) mmol/L Glucose (74-99) mg/dL POC Glucose (mg/dL) (70-110) mg/dL Calcium 8.0 L (8.4-10.2) mg/dL Troponin I 0.056 H* (0.000-0.034) ng/mL 01/09/24 01/09/24 01/09/24 Range/Units 00:39 04:21 04:21 Neutrophils # (1.3-7.7) k/uL Lymphocytes # 0.6 L (1.0-4.8) k/uL ABG pH (7.35-7.45) ABG pCO2 (35-45) mmHg ABG Total CO2 (19-24) mmol/L ABG O2 Saturation (94-97) % Chloride 110 H (98-107) mmol/L Carbon Dioxide 19 L (22-30) mmol/L Glucose 126 H (74-99) mg/dL POC Glucose (mg/dL) 117 H (70-110) mg/dL Calcium 8.2 L (8.4-10.2) mg/dL Troponin I (0.000-0.034) ng/mL 01/09/24 01/09/24 Range/Units 06:12 06:23 Neutrophils # (1.3-7.7) k/uL Lymphocytes # (1.0-4.8) k/uL ABG pH 7.29 L (7.35-7.45) ABG pCO2 48 H (35-45) mmHg ABG Total CO2 25 H (19-24) mmol/L ABG O2 Saturation 97.1 H (94-97) % Chloride (98-107) mmol/L Carbon Dioxide (22-30) mmol/L Glucose (74-99) mg/dL POC Glucose (mg/dL) 135 H (70-110) mg/dL Calcium (8.4-10.2) mg/dL Troponin I (0.000-0.034) ng/mL Assessment and Plan Assessment: Acute hypoxic respiratory failure requiring intubation and mechanical ventilatory support possibly secondary to fluid volume overload. BNP 12,500. 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 Number of minutes spent on the visit: 15.
[2024-01-09] MEDS: ENOXAPARIN 40 MG/0.4 ML SYRINGE SQ SCH (13:04)
--- NOTE | 2024-01-09 13:13 | P.PN ---
Subjective Progress Note Date: 01/09/24 patient is a 63-year-old gentleman with past medically significant for COPD was brought to the ER for respiratory distress. History was taken from patient's family according to them patient has been complaining of increased cough and shortness of breath for the last day. Patient also started complaining of left- sided chest pain which is sharp, constant, nonradiating, no aggravating or relieving associated with this chest pain. Patient was complaining of worsening shortness of breath. Patient was brought to the ER by family. In the ER, patient was found to be tachypneic, diaphoretic and tachycardic, initially patient was given trial on BiPAP but was initially intubated as he was not tolerating the BiPAP. Initial lab work done in the ER showed WBC 13.3, hemoglobin 16.3, platelet count 266, INR 1, sodium 131, potassium 4, BUN 19, creatinine 1.14, glucose 257, bilirubin 1.4, AST 26, ALT 198, alk phosphatase 170 troponin 0.088 Influenza A not detected Influenza B not detected RSV not detected COVID-19 not detected EKG done in the ER showed heart rate of 127, [place] 124, QRS 82, no ST segment el evation or depression seen, no T-wave inversions seen. Chest x-ray done in the ER showed new central opacities favoring mild to moderate edema versus developing acute infiltrates. Correlate clinically CT chest done PE protocol done showed suboptimal study without central saddle pulmonary embolism, no aortic dissection. Small moderate-sized bilateral pleural effusion, bilateral multifocal groundglass opacities and consolidation seen Patient admitted to ICU 01/08. Patient seen and examined. Continues to be intubated. Currently labs are WBCs 0.1, hemoglobin 13.8, platelet count 208, sodium 137, potassium 4.5, BUN 17, creatinine 0.97 calcium is 8.2. Antibiotics were discontinued as Pro-Federico is normal. REVIEW OF SYSTEMS: Cannot be obtained as patient currently intubated and sedated PHYSICAL EXAMINATION: GENERAL: The patient is intubated and sedated, HEENT: Pupils are round and equally reacting to light. EOMI. No scleral icterus. No conjunctival pallor. Normocephalic, atraumatic. No pharyngeal erythema. No thyromegaly. CARDIOVASCULAR: S1 and S2 present. No murmurs, rubs, or gallops. PULMONARY: Chest is clear to auscultation, no wheezing or crackles. ABDOMEN: Soft, nontender, nondistended, normoactive bowel sounds. No palpable organomegaly. MUSCULOSKELETAL: No joint swelling or deformity. EXTREMITIES: No cyanosis, clubbing, or pedal edema. NEUROLOGICAL: Intubated SKIN: No rashes. Assessment and plan Acute hypoxemic respiratory failure Bacterial pneumonia ruled out Acute COPD exacerbation Elevated LFTs Elevated troponin Monitor vital signs Monitor CBC Monitor CMP Continue telemetry monitoring Ordered blood cultures Trend troponins. Aggressive bronchopulmonary hygiene Continue vent management per ICU Continue breathing treatments DC IV Rocephin azithromycin continue IV Solu-Medrol Ordered 2D echo Cardiology following Critical care following Labs and medication were reviewed.. Continue same treatment. Continue with symptomatic treatment. Resume home medication. Monitor labs and vitals. DVT and GI prophylaxis. Further recommendations as per clinical course of the patient Dictation was produced using [email or web address] dictation software. please excuse any grammatical, word or spelling errors. Objective - Vital Signs Vital signs: Vital Signs Temp 98.8 F 01/09/24 08:00 Pulse 90 01/09/24 08:32 Resp 20 01/09/24 08:00 BP 91/52 01/09/24 08:00 Pulse Ox 93 L 01/09/24 08:00 FiO2 40 01/09/24 08:00 Intake & Output 01/08/24 01/09/24 01/09/24 18:59 06:59 18:59 Intake Total 158.659 367.248 300 Output Total 840 1495 95 Balance -681.341 -1127.752 205 Weight 82.1 kg Intake: IV 50 300 Azithromycin 500 mg In 250 Sodium Chloride 0.9% 250 ml @ 250 mls/hr IVPB DAILY [facility] Rx#:[id number] cefTRIAXone 1 gm In 50 50 Sodium Chloride 0.9% 50 ml @ 100 mls/hr IVPB Q12HR [facility] Rx#:[id number] Intake, IV Titration 158.659 317.248 0 Amount fentaNYL (PF). 1,000 mcg 70.308 102.722 In Sodium Chloride 0.9% 80 ml @ 0.5 MCG/KG/HR 3. 402 mls/hr IV .Q24H [facility] Rx#:[id number] propofoL 1,000 mg In 88.351 114.526 Empty Bag 1 bag @ 15 MCG/ KG/MIN 6.124 mls/hr IV . [id number] [facility] Rx#:[id number] propofoL 1,000 mg In 100.000 0 Empty Bag 1 bag @ 15 MCG/ KG/MIN 6.124 mls/hr IV . [id number] [facility] Rx#:[id number] Output: Urine 840 1495 95 Other: Voiding Method Indwelling Catheter Indwelling Catheter - Labs CBC & Chem 7: 01/09/24 04:21 01/09/24 04:21 Labs: Abnormal Lab Results - Last 24 Hours (Table) 01/08/24 01/08/24 01/08/24 Range/Units 12:35 18:51 18:51 Neutrophils # 8.4 H (1.3-7.7) k/uL Lymphocytes # 0.5 L (1.0-4.8) k/uL ABG pH (7.35-7.45) ABG pCO2 (35-45) mmHg ABG Total CO2 (19-24) mmol/L ABG O2 Saturation (94-97) % Chloride 113 H (98-107) mmol/L Carbon Dioxide 19 L (22-30) mmol/L Glucose (74-99) mg/dL POC Glucose (mg/dL) (70-110) mg/dL Calcium 8.0 L (8.4-10.2) mg/dL Troponin I 0.056 H* (0.000-0.034) ng/mL 01/09/24 01/09/24 01/09/24 Range/Units 00:39 04:21 04:21 Neutrophils # (1.3-7.7) k/uL Lymphocytes # 0.6 L (1.0-4.8) k/uL ABG pH (7.35-7.45) ABG pCO2 (35-45) mmHg ABG Total CO2 (19-24) mmol/L ABG O2 Saturation (94-97) % Chloride 110 H (98-107) mmol/L Carbon Dioxide 19 L (22-30) mmol/L Glucose 126 H (74-99) mg/dL POC Glucose (mg/dL) 117 H (70-110) mg/dL Calcium 8.2 L (8.4-10.2) mg/dL Troponin I (0.000-0.034) ng/mL 01/09/24 01/09/24 Range/Units 06:12 06:23 Neutrophils # (1.3-7.7) k/uL Lymphocytes # (1.0-4.8) k/uL ABG pH 7.29 L (7.35-7.45) ABG pCO2 48 H (35-45) mmHg ABG Total CO2 25 H (19-24) mmol/L ABG O2 Saturation 97.1 H (94-97) % Chloride (98-107) mmol/L Carbon Dioxide (22-30) mmol/L Glucose (74-99) mg/dL POC Glucose (mg/dL) 135 H (70-110) mg/dL Calcium (8.4-10.2) mg/dL Troponin I (0.000-0.034) ng/mL
--- NOTE | 2024-01-09 13:27 | CONS ---
CONSULTATION CHIEF COMPLAINT: Shortness of breath. HISTORY OF PRESENT ILLNESS: This is a 63-year-old gentleman who presented to [facility] with respiratory distress. He has history of COPD and has been having progressively worsening shortness of breath and cough of 1-day duration. He also complained of left- sided chest pain that is sharp, constant and nonradiating. He came to the ER and he was found to be tachypneic, tachycardia, diaphoretic, and was initially given a trial of BiPAP without any improvement and subsequently had to be intubated. His hemoglobin was normal at 16.3, white cell count was 13.3. EKG showed sinus rhythm without significant ST-T wave changes of ischemia. Chest x-ray revealed fluid overload. The CT scan of the chest was negative for pulmonary embolism but showed pleural effusion. REVIEW OF SYSTEMS: I am unable to obtain from the patient who is intubated, sedated, and on vent. PAST MEDICAL HISTORY: Significant for COPD. MEDICATIONS: As charted. ALLERGIES: As charted. FAMILY HISTORY AND SOCIAL HISTORY: Unable to obtain. PHYSICAL EXAMINATION: GENERAL: On exam, the patient is intubated, sedated on the vent. VITAL SIGNS: Heart rate was 80 beats per minute, blood pressure 90/60, respiratory rate is 26. CHEST: Reveals bilateral occasional rhonchi with diminished air entry. HEART: Reveals first and second heart sounds, no gallop. ABDOMEN: Soft. EXTREMITIES: Did not reveal any edema. LABORATORY DATA: Labs show that the hemoglobin is 13.8, platelet count is 208, potassium is 4.5. An echocardiogram showed severe LV systolic dysfunction. ASSESSMENT: 1. Acute respiratory failure secondary to COPD exacerbation. 2. Elevated troponin secondary to supply-demand mismatch from the respiratory failure. PLAN: Will continue with supportive care. When the blood pressure improves, we will consider adding BRITTNEY inhibitors and beta blockers. Because of the fluid overload noted on the CT scan, I gave him a dose of 40 mg of Lasix in the emergency room when I first evaluated him. MMODL / IJN: [id number] /
--- NOTE | 2024-01-09 14:36 | PN ---
PROGRESS NOTE SUBJECTIVE: Bk is a 63-year-old gentleman, who was admitted to the hospital with respiratory failure, requiring intubation. I evaluated him in the emergency room yesterday and gave him a dose of Lasix and he has put out urine well. He is currently intubated on vent and in the ICU. We will give him another dose of Lasix today. OBJECTIVE: VITAL SIGNS: Heart rate is 90 beats per minute, blood pressure is 83/40, and respiratory rate 18. CHEST: Reveals bilateral rhonchi with diminished air entry. HEART: Reveals first and second heart sounds. No gallop. EXTREMITIES: Did not reveal any edema. Peripheral pulses are felt. LABORATORY DATA: Hemoglobin is 13.8, platelet count is 208, potassium is 4.5, and creatinine is 0.9. Blood gases reveal a pH of 7.2, pCO2 of 48, and a pO2 of 89. ASSESSMENT: 1. Acute respiratory failure secondary to chronic obstructive pulmonary disease exacerbation. 2. Cardiomyopathy with severe left ventricular systolic dysfunction. 3. Hypotension. PLAN: Once the blood pressure improves, I will consider adding beta-blockers and BRITTNEY inhibitors and we will use Lasix as needed for the fluid overload. MMODL / IJN: [id number] /
[2024-01-09 18:11] LABS: Glucose,Whole Blood 170 mg/dL (70-110)
[2024-01-09] MEDS: KETOROLAC 15 MG/ML 1 ML VIAL IVP STA (18:13)
[2024-01-10 00:13] LABS: Glucose,Whole Blood 138 mg/dL (70-110)
[2024-01-10 05:04] LABS: Basophils % (A) 0 %; Eosinophils % (A) 0 %; HCT 41.6 % (39.0-53.0); HGB 13.3 gm/dL (13.0-17.5); Lymphocytes # (A) 0.5 k/uL (1.0-4.8); Lymphocytes % (A) 6 %; MCH 31.3 pg (25.0-35.0); MCHC 32.1 g/dL (31.0-37.0); MCV 97.6 fL (80.0-100.0); Mean Platelet Volume 8.8; Monocytes # (A) 0.3 k/uL (0-1.0); Monocytes % (A) 4 %; Neutrophils # (A) 7.4 k/uL (1.3-7.7); Neutrophils % (A) 90 %; Platelet Count 190 k/uL (150-450); RBC 4.26 m/uL (4.30-5.90); RDW 14.1 % (11.5-15.5); WBC 8.3 k/uL (3.8-10.6)
[2024-01-10 05:19] LABS: African American GFR (CKD) 89 (>60 ml/min/1.73 sqM); Anion Gap 5 mmol/L; Blood Urea Nitrogen 20 mg/dL (9-20); Calcium 8.6 mg/dL (8.4-10.2); Carbon Dioxide 23 mmol/L (22-30); Chloride 112 mmol/L (98-107); Glucose 143 mg/dL (74-99); Non-African American GFR(CKD) 77 (>60 ml/min/1.73 sqM); Potassium 4.4 mmol/L (3.5-5.1); Sodium 140 mmol/L (137-145)
[2024-01-10 06:02] LABS: Glucose,Whole Blood 135 mg/dL (70-110)
[2024-01-10 06:33] LABS: ABG Base Excess 1.8 mmol/L; ABG HCO3 27 mmol/L (21-25); ABG Oxygen Saturation 99.1 % (94-97); ABG PCO2 43 mmHg (35-45); ABG PO2 135 mmHg (83-108); ABG TCO2 28 mmol/L (19-24); Allen Test Performed? Yes
--- NOTE | 2024-01-10 07:52 | XR ---
EXAMINATION TYPE: XR chest 1V portable DATE OF EXAM: 01/10/2024 COMPARISON: 01/09/2024 HISTORY: SOB, Follow Up FINDINGS: Indwelling tubes and catheters are unchanged. Stable perihilar and basilar infiltrates and/or atelectasis. Stable appearance of the cardio-mediastinal structures at this time. Pleural effusion unchanged. IMPRESSION: 1. Stable portable chest. Clinical correlation and follow up until resolution is recommended.
--- NOTE | 2024-01-10 10:52 | P.PN ---
Subjective Progress Note Date: 01/10/24 This is a 63-year-old male patient who presented to the ER just after midnight today with complaints of chest pain shortness of breath cough congestion. He had stated he had start sharp stabbing pain in the left chest progressively worsening shortness of breath. Apparently he refused to come by EMS that had been called. He came in by family car. He was noted to be davis, pale diaphoretic, tachypneic and tachycardic and severe respiratory distress. Initial trial of BiPAP and Ativan failed and the patient was intubated and placed on the mechanical ventilator. CT angio gram was suboptimal. No central saddle pulmonary embolism. Could not exclude segmental or subsegmental PE. No aortic dissection. There are small to moderate-sized bilateral pleural effusions. Bilateral multifocal glass opacities and focal consolidations. EKG revealed sinus tachycardia without significant ST or T wave abnormalities. White count 13.3. Hemoglobin 16.3. Platelets 266. Sodium 131. Potassium 4.0. Bicarb 18. BUN 19. Creatinine 1.14. Glucose 257. Magnesium 2.1. AST 226. ALT 198. Initial troponin 0.028. Then 0.088. proBNP 12,500. Viral screen was negative. He is intubated on mechanical ventilator currently on assist-control mode at a rate of 20, tidal volume 450, FiO2 40% and a PEEP of 5. Most recent arterial blood gases revealed a PaO2 of 153, pCO2 38 and a pH of 7.38. He is on propofol at 15 mcg/kg/min. Fentanyl drip at 1 mcg/kg/h. Receive ceftriaxone and azithromycin. The patient is seen today January 09, 2024 in follow-up in the intensive care unit. He remains intubated on mechanical ventilator at assist-control rate of 20, tidal volume 450, FiO2 40% and a PEEP of 5. Morning blood gases revealed a PaO2 of 89, pCO2 of 48 and a pH of 7.29. He remains on propofol at 25 mcg/kg/min. Fentanyl at 1 mcg/kg/h. He is continued on DuoNeb ventilations, Pulmicort and performing scintillations, Solu-Medrol. White count 6.1. Hemoglobin 13.8. Platelets 208. Sodium 137. Potassium 4.5. Bicarb 19. BUN 17. Creatinine 0.97. Glucose 126. Echocardiogram reveals a left ventricular systolic ejection fraction of 30%. There is global left ventricular hypokinesia. Chest x-ray reveals scattered perihilar and basilar infiltrates with small pleural effusions. Stable compared to previous. He was given 20 mg of Lasix IV push this morning. Currently in a -1.8 L balance. The patient is seen today January 10, 2024 in follow-up in the intensive care unit. He remains intubated on the mechanical ventilator with current settings of assist-control mode with a rate of 20, tidal volume 450, FiO2 30% and a PEEP of 5. Morning blood gases reveal a pO2 of 135, pCO2 43 and a pH of 7.40. He is sedated on propofol at 35 mcg/kg/min. Fentanyl at 1 mcg/kg/h. Normal saline at KVO. He is being nourished with vital HP at 20 MLS per hour with a goal of 47 mL/h. His procalcitonin was 0.07. His antibiotics were discontinued. He remains on DuoNeb ventilations, Pulmicort and Perforomist inhalations, Solu- Medrol. Lovenox for DVT prophylaxis. Sputum culture revealed no growth. Blood cultures reveal no growth thus far. White count 8.3. Hemoglobin 13.3. Platelets 190. Sodium 140. Potassium 4.4. Bicarb 23. BUN 20. Creatinine 1.03. Glucose 143. Objective - Vital Signs Vital signs: Vital Signs Temp 97.8 F 01/10/24 04:00 Pulse 76 01/10/24 08:15 Resp 20 01/10/24 07:00 BP 119/75 01/10/24 07:00 Pulse Ox 97 01/10/24 07:00 FiO2 30 01/10/24 07:30 Intake & Output 01/09/24 01/10/24 01/10/24 18:59 06:59 18:59 Intake Total 642.741 395.01 120 Output Total 985 540 30 Balance -342.259 -144.99 90 Weight 82.1 kg 75.2 kg Intake: IV 330 120 10 0.9 30 120 10 Azithromycin 500 mg In 250 Sodium Chloride 0.9% 250 ml @ 250 mls/hr IVPB DAILY [facility] Rx#:[id number] cefTRIAXone 1 gm In 50 Sodium Chloride 0.9% 50 ml @ 100 mls/hr IVPB Q12HR [facility] Rx#:[id number] Intake, IV Titration 182.741 65.01 100 Amount fentaNYL (PF). 1,000 mcg 55.339 In Sodium Chloride 0.9% 80 ml @ 0.5 MCG/KG/HR 3. 402 mls/hr IV .Q24H [facility] Rx#:[id number] propofoL 1,000 mg In 127.402 65.01 100 Empty Bag 1 bag @ 15 MCG/ KG/MIN 6.124 mls/hr IV . [id number] [facility] Rx#:[id number] Tube Feeding 100 120 10 Other 30 90 Output: Urine 985 540 30 Other: Voiding Method Indwelling Catheter Indwelling Catheter - Exam GENERAL EXAM: Intubated, sedated 63-year-old male, 30% FiO2 on the ventilator, in no apparent distress. HEAD: Normocephalic. EYES: Sluggish reaction of pupils, equal size. NOSE: Clear with pink turbinates. THROAT: Oral endotracheal and gastric tube and no erythema or exudates. NECK: No masses, no JVD. CHEST: No chest wall deformity. LUNGS: Equal air entry with scattered rhonchi, crackles in the bases. CVS: S1 and S2 normal with no audible murmur, regular rhythm. ABDOMEN: No hepatosplenomegaly, normal bowel sounds, no guarding or rigidity. SPINE: No scoliosis or deformity SKIN: No rashes CENTRAL NERVOUS SYSTEM: Sedated, tone is normal in all 4 extremities. EXTREMITIES: There is no peripheral edema. No clubbing, no cyanosis. Peripheral pulses are intact. - Labs CBC & Chem 7: 01/10/24 04:25 01/10/24 04:25 Labs: Abnormal Lab Results - Last 24 Hours (Table) 01/09/24 01/09/24 01/10/24 Range/Units 11:55 18:09 00:12 RBC (4.30-5.90) m/uL Lymphocytes # (1.0-4.8) k/uL ABG pO2 (83-108) mmHg ABG HCO3 (21-25) mmol/L ABG Total CO2 (19-24) mmol/L ABG O2 Saturation (94-97) % Chloride (98-107) mmol/L Glucose (74-99) mg/dL POC Glucose (mg/dL) 159 H 170 H 138 H (70-110) mg/dL 01/10/24 01/10/24 01/10/24 Range/Units 04:25 04:25 06:00 RBC 4.26 L (4.30-5.90) m/uL Lymphocytes # 0.5 L (1.0-4.8) k/uL ABG pO2 (83-108) mmHg ABG HCO3 (21-25) mmol/L ABG Total CO2 (19-24) mmol/L ABG O2 Saturation (94-97) % Chloride 112 H (98-107) mmol/L Glucose 143 H (74-99) mg/dL POC Glucose (mg/dL) 135 H (70-110) mg/dL 01/10/24 Range/Units 06:30 RBC (4.30-5.90) m/uL Lymphocytes # (1.0-4.8) k/uL ABG pO2 135 H (83-108) mmHg ABG HCO3 27 H (21-25) mmol/L ABG Total CO2 28 H (19-24) mmol/L ABG O2 Saturation 99.1 H (94-97) % Chloride (98-107) mmol/L Glucose (74-99) mg/dL POC Glucose (mg/dL) (70-110) mg/dL Microbiology - Last 24 Hours (Table) 01/08/24 01:00 Gram Stain - Final Sputum Sputum Culture - Final 01/08/24 01:20 Blood Culture - Preliminary Blood 01/08/24 01:05 Blood Culture - Preliminary Blood Assessment and Plan Assessment: Acute hypoxic respiratory failure requiring intubation and mechanical ventilatory support possibly secondary to fluid volume overload. BNP 12,500. 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 Number of minutes spent on the visit: 15.
[2024-01-10 11:47] LABS: Glucose,Whole Blood 136 mg/dL (70-110)
[2024-01-10] MEDS: METOPROLOL TARTRATE 25 MG TAB PO SCH (11:48)
[2024-01-10] MEDS: FUROSEMIDE 10 MG/ML 2 ML VIAL IV SCH (11:48)
[2024-01-10] MEDS: lisinopriL 10 MG TAB PO SCH (11:48)
--- NOTE | 2024-01-10 13:33 | PN ---
PROGRESS NOTE SUBJECTIVE: Bk is a 63-year-old gentleman who is in the ICU with respiratory failure from a combination of COPD exacerbation and congestive heart failure. He has severe LV systolic dysfunction with an ejection fraction of 30%, blood pressure has improved. I am going to put him on Lasix 20 IV b.i.d. along with Zestril and Lopressor. OBJECTIVE: VITAL SIGNS: Heart rate is 84 beats per minute, blood pressure is 133/87, respiratory rate 18. CHEST: Reveals bilateral occasional rhonchi. HEART: Reveals first and second heart sounds, no gallop. EXTREMITIES: Did not reveal any edema. Peripheral pulses are felt. LABS: Show that the hemoglobin is 13.3, platelet count is 190, potassium is 4.4, creatinine is 1. ASSESSMENT: Acute systolic heart failure, cardiomyopathy with severe LV dysfunction, COPD exacerbation, vent requiring respiratory failure. PLAN: We will start the patient on lisinopril, metoprolol, and IV Lasix. LUIS M / ADAN: [id number] /
--- NOTE | 2024-01-10 13:34 | P.PN ---
Subjective Progress Note Date: 01/10/24 patient is a 63-year-old gentleman with past medically significant for COPD was brought to the ER for respiratory distress. History was taken from patient's family according to them patient has been complaining of increased cough and shortness of breath for the last day. Patient also started complaining of left- sided chest pain which is sharp, constant, nonradiating, no aggravating or relieving associated with this chest pain. Patient was complaining of worsening shortness of breath. Patient was brought to the ER by family. In the ER, patient was found to be tachypneic, diaphoretic and tachycardic, initially patient was given trial on BiPAP but was initially intubated as he was not tolerating the BiPAP. Initial lab work done in the ER showed WBC 13.3, hemoglobin 16.3, platelet count 266, INR 1, sodium 131, potassium 4, BUN 19, creatinine 1.14, glucose 257, bilirubin 1.4, AST 26, ALT 198, alk phosphatase 170 troponin 0.088 Influenza A not detected Influenza B not detected RSV not detected COVID-19 not detected EKG done in the ER showed heart rate of 127, MT 124, QRS 82, no ST segment el evation or depression seen, no T-wave inversions seen. Chest x-ray done in the ER showed new central opacities favoring mild to moderate edema versus developing acute infiltrates. Correlate clinically CT chest done PE protocol done showed suboptimal study without central saddle pulmonary embolism, no aortic dissection. Small moderate-sized bilateral pleural effusion, bilateral multifocal groundglass opacities and consolidation seen Patient admitted to ICU 01/08. Patient seen and examined. Continues to be intubated. Currently labs are WBCs 0.1, hemoglobin 13.8, platelet count 208, sodium 137, potassium 4.5, BUN 17, creatinine 0.97 calcium is 8.2. Antibiotics were discontinued as Pro-Federico is normal. 01/09. Patient seen and examined. Patient was given spontaneous breathing trial today, patient became restless and tachypneic. Critical care did not attempt extubation today. REVIEW OF SYSTEMS: Cannot be obtained as patient currently intubated and sedated PHYSICAL EXAMINATION: GENERAL: The patient is intubated and sedated, HEENT: Pupils are round and equally reacting to light. EOMI. No scleral icterus. No conjunctival pallor. Normocephalic, atraumatic. No pharyngeal erythema. No thyromegaly. CARDIOVASCULAR: S1 and S2 present. No murmurs, rubs, or gallops. PULMONARY: Chest is clear to auscultation, no wheezing or crackles. ABDOMEN: Soft, nontender, nondistended, normoactive bowel sounds. No palpable organomegaly. MUSCULOSKELETAL: No joint swelling or deformity. EXTREMITIES: No cyanosis, clubbing, or pedal edema. NEUROLOGICAL: Intubated SKIN: No rashes. Assessment and plan Acute hypoxemic respiratory failure Bacterial pneumonia ruled out Acute COPD exacerbation Elevated LFTs Elevated troponin Monitor vital signs Monitor CBC Monitor CMP Continue telemetry monitoring Ordered blood cultures Trend troponins. Aggressive bronchopulmonary hygiene Continue vent management per ICU Continue breathing treatments continue IV Solu-Medrol Cardiology following Critical care following Labs and medication were reviewed.. Continue same treatment. Continue with symptomatic treatment. Resume home medication. Monitor labs and vitals. DVT and GI prophylaxis. Further recommendations as per clinical course of the patient Dictation was produced using [employer] dictation software. please excuse any grammatical, word or spelling errors. Objective - Vital Signs Vital signs: Vital Signs Temp 98.4 F 01/10/24 12:00 Pulse 68 01/10/24 13:00 Resp 20 01/10/24 13:00 BP 126/81 01/10/24 13:00 Pulse Ox 95 01/10/24 13:00 FiO2 30 01/10/24 13:00 Intake & Output 01/09/24 01/10/24 01/10/24 18:59 06:59 18:59 Intake Total 642.741 395.01 320.546 Output Total 985 540 645 Balance -342.259 -144.99 -324.454 Weight 82.1 kg 75.2 kg Intake: IV 330 120 70 0.9 30 120 70 Azithromycin 500 mg In 250 Sodium Chloride 0.9% 250 ml @ 250 mls/hr IVPB DAILY [facility] Rx#:[id number] cefTRIAXone 1 gm In 50 Sodium Chloride 0.9% 50 ml @ 100 mls/hr IVPB Q12HR [facility] Rx#:[id number] Intake, IV Titration 182.741 65.01 110.546 Amount fentaNYL (PF). 1,000 mcg 55.339 In Sodium Chloride 0.9% 80 ml @ 0.5 MCG/KG/HR 3. 402 mls/hr IV .Q24H [facility] Rx#:[id number] propofoL 1,000 mg In 127.402 65.01 110.546 Empty Bag 1 bag @ 15 MCG/ KG/MIN 6.124 mls/hr IV . [id number] [facility] Rx#:[id number] Tube Feeding 100 120 140 Other 30 90 Output: Urine 985 540 645 Other: Voiding Method Indwelling Catheter Indwelling Catheter Indwelling Catheter - Labs CBC & Chem 7: 01/10/24 04:25 01/10/24 04:25 Labs: Abnormal Lab Results - Last 24 Hours (Table) 01/09/24 01/10/24 01/10/24 Range/Units 18:09 00:12 04:25 RBC 4.26 L (4.30-5.90) m/uL Lymphocytes # 0.5 L (1.0-4.8) k/uL ABG pO2 (83-108) mmHg ABG HCO3 (21-25) mmol/L ABG Total CO2 (19-24) mmol/L ABG O2 Saturation (94-97) % Chloride (98-107) mmol/L Glucose (74-99) mg/dL POC Glucose (mg/dL) 170 H 138 H (70-110) mg/dL 01/10/24 01/10/24 01/10/24 Range/Units 04:25 06:00 06:30 RBC (4.30-5.90) m/uL Lymphocytes # (1.0-4.8) k/uL ABG pO2 135 H (83-108) mmHg ABG HCO3 27 H (21-25) mmol/L ABG Total CO2 28 H (19-24) mmol/L ABG O2 Saturation 99.1 H (94-97) % Chloride 112 H (98-107) mmol/L Glucose 143 H (74-99) mg/dL POC Glucose (mg/dL) 135 H (70-110) mg/dL 01/10/24 Range/Units 11:45 RBC (4.30-5.90) m/uL Lymphocytes # (1.0-4.8) k/uL ABG pO2 (83-108) mmHg ABG HCO3 (21-25) mmol/L ABG Total CO2 (19-24) mmol/L ABG O2 Saturation (94-97) % Chloride (98-107) mmol/L Glucose (74-99) mg/dL POC Glucose (mg/dL) 136 H (70-110) mg/dL Microbiology - Last 24 Hours (Table) 01/08/24 01:20 Blood Culture - Preliminary Blood 01/08/24 01:05 Blood Culture - Preliminary Blood 01/08/24 01:00 Gram Stain - Final Sputum Sputum Culture - Final
[2024-01-10 18:44] LABS: Glucose,Whole Blood 140 mg/dL (70-110)
[2024-01-11 02:54] LABS: African American GFR (CKD) 87 (>60 ml/min/1.73 sqM); Anion Gap 4 mmol/L; Blood Urea Nitrogen 31 mg/dL (9-20); Calcium 8.7 mg/dL (8.4-10.2); Carbon Dioxide 28 mmol/L (22-30); Chloride 111 mmol/L (98-107); Glucose 138 mg/dL (74-99); Non-African American GFR(CKD) 75 (>60 ml/min/1.73 sqM); Potassium 4.1 mmol/L (3.5-5.1); Sodium 143 mmol/L (137-145)
[2024-01-11 02:56] LABS: Basophils % (A) 0 %; Eosinophils % (A) 0 %; HCT 44.1 % (39.0-53.0); Lymphocytes # (A) 0.6 k/uL (1.0-4.8); Lymphocytes % (A) 7 %; MCH 30.6 pg (25.0-35.0); MCHC 31.8 g/dL (31.0-37.0); MCV 96.2 fL (80.0-100.0); Mean Platelet Volume 9.2; Monocytes # (A) 0.4 k/uL (0-1.0); Monocytes % (A) 5 %; Neutrophils # (A) 7.4 k/uL (1.3-7.7); Neutrophils % (A) 87 %; Platelet Count 203 k/uL (150-450); RBC 4.59 m/uL (4.30-5.90); WBC 8.4 k/uL (3.8-10.6)
[2024-01-11 04:42] LABS: ABG HCO3 31 mmol/L (21-25); ABG Oxygen Saturation 95.4 % (94-97); ABG PCO2 48 mmHg (35-45); ABG PH 7.41 (7.35-7.45); ABG PO2 75 mmHg (83-108); ABG TCO2 32 mmol/L (19-24); Allen Test Performed? Yes
[2024-01-11 05:17] LABS: Glucose,Whole Blood 138 mg/dL (70-110)
--- NOTE | 2024-01-11 08:03 | XR ---
EXAMINATION TYPE: XR chest 1V portable DATE OF EXAM: 01/11/2024 COMPARISON: 01/10/2024 HISTORY: sob TECHNIQUE: Single frontal view of the chest is obtained. FINDINGS: ET and NG tube stable. The heart is enlarged and there is diffuse interstitial pattern wit h bilateral consolidation and pleural effusions. Osseous structures stable. No pneumothorax. IMPRESSION: CHF stable in appearance.
[2024-01-11] MEDS: FUROSEMIDE 10 MG/ML 2 ML VIAL IV ONE (08:57)
--- NOTE | 2024-01-11 10:42 | P.PN ---
Subjective Progress Note Date: 01/11/24 This is a 63-year-old male patient who presented to the ER just after midnight today with complaints of chest pain shortness of breath cough congestion. He had stated he had start sharp stabbing pain in the left chest progressively worsening shortness of breath. Apparently he refused to come by EMS that had been called. He came in by family car. He was noted to be davis, pale diaphoretic, tachypneic and tachycardic and severe respiratory distress. Initial trial of BiPAP and Ativan failed and the patient was intubated and placed on the mechanical ventilator. CT angio gram was suboptimal. No central saddle pulmonary embolism. Could not exclude segmental or subsegmental PE. No aortic dissection. There are small to moderate-sized bilateral pleural effusions. Bilateral multifocal glass opacities and focal consolidations. EKG revealed sinus tachycardia without significant ST or T wave abnormalities. White count 13.3. Hemoglobin 16.3. Platelets 266. Sodium 131. Potassium 4.0. Bicarb 18. BUN 19. Creatinine 1.14. Glucose 257. Magnesium 2.1. AST 226. ALT 198. Initial troponin 0.028. Then 0.088. proBNP 12,500. Viral screen was negative. He is intubated on mechanical ventilator currently on assist-control mode at a rate of 20, tidal volume 450, FiO2 40% and a PEEP of 5. Most recent arterial blood gases revealed a PaO2 of 153, pCO2 38 and a pH of 7.38. He is on propofol at 15 mcg/kg/min. Fentanyl drip at 1 mcg/kg/h. Receive ceftriaxone and azithromycin. The patient is seen today January 09, 2024 in follow-up in the intensive care unit. He remains intubated on mechanical ventilator at assist-control rate of 20, tidal volume 450, FiO2 40% and a PEEP of 5. Morning blood gases revealed a PaO2 of 89, pCO2 of 48 and a pH of 7.29. He remains on propofol at 25 mcg/kg/min. Fentanyl at 1 mcg/kg/h. He is continued on DuoNeb ventilations, Pulmicort and performing scintillations, Solu-Medrol. White count 6.1. Hemoglobin 13.8. Platelets 208. Sodium 137. Potassium 4.5. Bicarb 19. BUN 17. Creatinine 0.97. Glucose 126. Echocardiogram reveals a left ventricular systolic ejection fraction of 30%. There is global left ventricular hypokinesia. Chest x-ray reveals scattered perihilar and basilar infiltrates with small pleural effusions. Stable compared to previous. He was given 20 mg of Lasix IV push this morning. Currently in a -1.8 L balance. The patient is seen today January 10, 2024 in follow-up in the intensive care unit. He remains intubated on the mechanical ventilator with current settings of assist-control mode with a rate of 20, tidal volume 450, FiO2 30% and a PEEP of 5. Morning blood gases reveal a pO2 of 135, pCO2 43 and a pH of 7.40. He is sedated on propofol at 35 mcg/kg/min. Fentanyl at 1 mcg/kg/h. Normal saline at KVO. He is being nourished with vital HP at 20 MLS per hour with a goal of 47 mL/h. His procalcitonin was 0.07. His antibiotics were discontinued. He remains on DuoNeb ventilations, Pulmicort and Perforomist inhalations, Solu- Medrol. Lovenox for DVT prophylaxis. Sputum culture revealed no growth. Blood cultures reveal no growth thus far. White count 8.3. Hemoglobin 13.3. Platelets 190. Sodium 140. Potassium 4.4. Bicarb 23. BUN 20. Creatinine 1.03. Glucose 143. On today's evaluation of 01/11/2024, the patient remains intubated on the mechanical ventilator. The patient is post hypoxic respiratory failure due to pulmonary edema and CHF as the patient has systolic heart failure with an ejection fraction of 30%. The patient remains intubated on the mechanical ventilator. He also has history of alcoholism. He has required higher dose of sedation and the patient is currently on propofol at 35 mcg/kg/min and fentanyl at 1 mcg/kg/h. This morning, he is on assist-control mode with rate of 20, tidal volume of 450, FiO2 of 30% with a PEEP of 5. The blood gas shows a pH of 7.4 with a pCO2 of 48 and pO2 of 75. IV fluids are currently at KVO. Peak airway pressures of 27 and a static airway pressure is 16. The patient's chest x-ray still showing pulmonary edema with bilateral pleural effusion. There is also areas of patchy infiltration bilaterally. Procalcitonin level has not been elevated and the patient was treated with a course of antibiotics. I did appreciate some patchy infiltrates on the initial CAT scan of the chest that was done at time of admission. Nevertheless, the viral screen has also been negative. The patient is hemodynamically stable on no pressors. Echocardiogram showed impaired LV function. Remains on IV Lasix. No significant edema lower extremities. The white cell count of 8.4 with a hemoglobin of 14 and a platelet count of 203. The BUN is at 31 with a creatinine of 1.06 and a sodium levels at 143 with a potassium level of 4.1. The patient's overall fluid balance over the past 24 hours has been -1.6 L. The blood cultures been negative. Sputum culture has been also negative. The patient is also on enteral feeding for nutritional support and the patient is on vital HP at 30-40. Objective - Vital Signs Vital signs: Vital Signs Temp 98.4 F 01/11/24 08:00 Pulse 54 L 01/11/24 08:35 Resp 20 01/11/24 08:00 BP 118/75 01/11/24 08:00 Pulse Ox 95 01/11/24 08:00 FiO2 30 01/11/24 08:00 Intake & Output 01/10/24 01/11/24 01/11/24 18:59 06:59 18:59 Intake Total 574.131 816.438 100 Output Total 1550 1470 50 Balance -975.869 -653.562 50 Weight 76.5 kg Intake: IV 120 120 20 0.9 120 120 20 Intake, IV Titration 194.131 161.438 Amount propofoL 1,000 mg In 194.131 161.438 Empty Bag 1 bag @ 15 MCG/ KG/MIN 6.124 mls/hr IV . [id number] [facility] Rx#:[id number] Tube Feeding 260 505 80 Other 30 Output: Urine 1550 1470 50 Other: Voiding Method Indwelling Catheter Indwelling Catheter Indwelling Catheter - Exam GENERAL EXAM: Intubated, sedated 63-year-old male, sedated on a combination of propofol and fentanyl. Synchronous with mechanical ventilator. HEAD: Normocephalic. EYES: Sluggish reaction of pupils, equal size. NOSE: Clear with pink turbinates. THROAT: Oral endotracheal and gastric tube and no erythema or exudates. NECK: No masses, no JVD. CHEST: No chest wall deformity. LUNGS: Equal air entry with scattered rhonchi, crackles in the bases. CVS: S1 and S2 normal with no audible murmur, regular rhythm. ABDOMEN: No hepatosplenomegaly, normal bowel sounds, no guarding or rigidity. SPINE: No scoliosis or deformity SKIN: No rashes CENTRAL NERVOUS SYSTEM: Sedated, tone is normal in all 4 extremities. EXTREMITIES: There is no peripheral edema. No clubbing, no cyanosis. Peripheral pulses are intact. - Labs CBC & Chem 7: 01/11/24 02:26 01/11/24 02:26 Labs: Abnormal Lab Results - Last 24 Hours (Table) 01/10/24 01/10/24 01/11/24 Range/Units 11:45 18:43 02:26 Lymphocytes # 0.6 L (1.0-4.8) k/uL ABG pCO2 (35-45) mmHg ABG pO2 (83-108) mmHg ABG HCO3 (21-25) mmol/L ABG Total CO2 (19-24) mmol/L Chloride (98-107) mmol/L BUN (9-20) mg/dL Glucose (74-99) mg/dL POC Glucose (mg/dL) 136 H 140 H (70-110) mg/dL 01/11/24 01/11/24 01/11/24 Range/Units 02:26 04:33 05:16 Lymphocytes # (1.0-4.8) k/uL ABG pCO2 48 H (35-45) mmHg ABG pO2 75 L (83-108) mmHg ABG HCO3 31 H (21-25) mmol/L ABG Total CO2 32 H (19-24) mmol/L Chloride 111 H (98-107) mmol/L BUN 31 H (9-20) mg/dL Glucose 138 H (74-99) mg/dL POC Glucose (mg/dL) 138 H (70-110) mg/dL Microbiology - Last 24 Hours (Table) 01/08/24 01:20 Blood Culture - Preliminary Blood 01/08/24 01:05 Blood Culture - Preliminary Blood 01/08/24 01:00 Gram Stain - Final Sputum Sputum Culture - Final Assessment and Plan Plan: Acute hypoxic respiratory failure requiring intubation and mechanical ventilatory support possibly secondary to fluid volume overload. BNP 12,500. Procalcitonin was negative at 0.07. Note that the acute hypoxic respiratory failure was predominantly related to CHF as the patient had interstitial edema/pulmonary edema in addition to bilateral pleural effusions. At same time, the patient had patchy bilateral pulmonary filtrates which could potentially reflect infection. Procalcitonin level has been low. Viral screen has been negative. The chest x-ray from today still showing bilateral pleural effusions and the patient remains in negative fluid balance. Not ready for weaning or extubation at this point in time. 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 The patient has global hypokinesis Troponin leak, secondary to above Chronic alcohol abuse drinking approximately 8-12 beers daily, currently sedated with a combination of propofol and fentanyl Transaminitis, secondary to above History of chronic tobacco dependence Plan: Continue propofol and fentanyl at this point in time Wean down the sedation to lower degree and target RASS of 0 to -1 Increase the Lasix to 40 mg every 12 hours IV Monitor fluid balance Repeat chest x-ray May need a bronchoscopy if there is no clearing of the patchy bilateral pulm infiltrates seen earlier Procalcitonin level has been low and the patient completed a course of antibiotics Continue enteral feeding for nutritional support Continue bronchodilators, steroids and the patient is on IV Solu-Medrol 40 mg every 6 hours. No significant bronchospasm on today's evaluation. Continue metoprolol and Zestril. Metoprolol 25 mg twice a day and Zestril 10 mg p.o. daily. Lovenox for DVT prophylaxis Not ready for weaning yet We will continue to follow and will make further recommendations based on the progress. Critical care evaluation that was done more than 30 minutes. Time with Patient: Greater than 30
--- NOTE | 2024-01-11 11:39 | P.PN ---
Subjective Progress Note Date: 01/11/24 patient is a 63-year-old gentleman with past medically significant for COPD was brought to the ER for respiratory distress. History was taken from patient's family according to them patient has been complaining of increased cough and shortness of breath for the last day. Patient also started complaining of left- sided chest pain which is sharp, constant, nonradiating, no aggravating or relieving associated with this chest pain. Patient was complaining of worsening shortness of breath. Patient was brought to the ER by family. In the ER, patient was found to be tachypneic, diaphoretic and tachycardic, initially patient was given trial on BiPAP but was initially intubated as he was not tolerating the BiPAP. Initial lab work done in the ER showed WBC 13.3, hemoglobin 16.3, platelet count 266, INR 1, sodium 131, potassium 4, BUN 19, creatinine 1.14, glucose 257, bilirubin 1.4, AST 26, ALT 198, alk phosphatase 170 troponin 0.088 Influenza A not detected Influenza B not detected RSV not detected COVID-19 not detected EKG done in the ER showed heart rate of 127, CT 124, QRS 82, no ST segment el evation or depression seen, no T-wave inversions seen. Chest x-ray done in the ER showed new central opacities favoring mild to moderate edema versus developing acute infiltrates. Correlate clinically CT chest done PE protocol done showed suboptimal study without central saddle pulmonary embolism, no aortic dissection. Small moderate-sized bilateral pleural effusion, bilateral multifocal groundglass opacities and consolidation seen Patient admitted to ICU 01/08. Patient seen and examined. Continues to be intubated. Currently labs are WBCs 0.1, hemoglobin 13.8, platelet count 208, sodium 137, potassium 4.5, BUN 17, creatinine 0.97 calcium is 8.2. Antibiotics were discontinued as Pro-Federico is normal. 01/09. Patient seen and examined. Patient was given spontaneous breathing trial today, patient became restless and tachypneic. Critical care did not attempt extubation today. 01/10. Patient seen and examined. Blood work done this morning showedWBC 8.4, hemoglobin 14, platelet count 203, sodium 143, potassium 4.1, BUN 31, creatinine 1.06 patient will be going to a spontaneous breathing trial again today. Currently on tube feeding REVIEW OF SYSTEMS: Cannot be obtained as patient currently intubated and sedated PHYSICAL EXAMINATION: GENERAL: The patient is intubated and sedated, HEENT: Pupils are round and equally reacting to light. EOMI. No scleral icterus. No conjunctival pallor. Normocephalic, atraumatic. No pharyngeal erythema. No thyromegaly. CARDIOVASCULAR: S1 and S2 present. No murmurs, rubs, or gallops. PULMONARY: Chest is clear to auscultation, no wheezing or crackles. ABDOMEN: Soft, nontender, nondistended, normoactive bowel sounds. No palpable organomegaly. MUSCULOSKELETAL: No joint swelling or deformity. EXTREMITIES: No cyanosis, clubbing, or pedal edema. NEUROLOGICAL: Intubated SKIN: No rashes. Assessment and plan Acute hypoxemic respiratory failure Bacterial pneumonia ruled out Acute COPD exacerbation Elevated LFTs Elevated troponin Monitor vital signs Monitor CBC Monitor CMP Continue telemetry monitoring Ordered blood cultures Trend troponins. Aggressive bronchopulmonary hygiene I's and O's, daily weights, continue IV Lasix 40 mg every 12 Continue vent management per ICU Continue breathing treatments continue IV Solu-Medrol Cardiology following Critical care following Labs and medication were reviewed.. Continue same treatment. Continue with symptomatic treatment. Resume home medication. Monitor labs and vitals. DVT and GI prophylaxis. Further recommendations as per clinical course of the patient Dictation was produced using [employer] dictation software. please excuse any grammatical, word or spelling errors. Objective - Vital Signs Vital signs: Vital Signs Temp 98.4 F 01/11/24 08:00 Pulse 53 L 01/11/24 08:51 Resp 20 01/11/24 08:00 BP 118/75 01/11/24 08:00 Pulse Ox 95 01/11/24 08:00 FiO2 30 01/11/24 08:44 Intake & Output 01/10/24 01/11/24 01/11/24 18:59 06:59 18:59 Intake Total 574.131 816.438 100 Output Total 1550 1470 50 Balance -975.869 -653.562 50 Weight 76.5 kg Intake: IV 120 120 20 0.9 120 120 20 Intake, IV Titration 194.131 161.438 Amount propofoL 1,000 mg In 194.131 161.438 Empty Bag 1 bag @ 15 MCG/ KG/MIN 6.124 mls/hr IV . [id number] [facility] Rx#:[id number] Tube Feeding 260 505 80 Other 30 Output: Urine 1550 1470 50 Other: Voiding Method Indwelling Catheter Indwelling Catheter Indwelling Catheter - Labs CBC & Chem 7: 01/11/24 02:26 01/11/24 02:26 Labs: Abnormal Lab Results - Last 24 Hours (Table) 01/10/24 01/10/24 01/11/24 Range/Units 11:45 18:43 02:26 Lymphocytes # 0.6 L (1.0-4.8) k/uL ABG pCO2 (35-45) mmHg ABG pO2 (83-108) mmHg ABG HCO3 (21-25) mmol/L ABG Total CO2 (19-24) mmol/L Chloride (98-107) mmol/L BUN (9-20) mg/dL Glucose (74-99) mg/dL POC Glucose (mg/dL) 136 H 140 H (70-110) mg/dL 01/11/24 01/11/24 01/11/24 Range/Units 02:26 04:33 05:16 Lymphocytes # (1.0-4.8) k/uL ABG pCO2 48 H (35-45) mmHg ABG pO2 75 L (83-108) mmHg ABG HCO3 31 H (21-25) mmol/L ABG Total CO2 32 H (19-24) mmol/L Chloride 111 H (98-107) mmol/L BUN 31 H (9-20) mg/dL Glucose 138 H (74-99) mg/dL POC Glucose (mg/dL) 138 H (70-110) mg/dL Microbiology - Last 24 Hours (Table) 01/08/24 01:20 Blood Culture - Preliminary Blood 01/08/24 01:05 Blood Culture - Preliminary Blood 01/08/24 01:00 Gram Stain - Final Sputum Sputum Culture - Final
[2024-01-11 11:49] LABS: Glucose,Whole Blood 128 mg/dL (70-110)
--- NOTE | 2024-01-11 13:13 | P.PN ---
Subjective Progress Note Date: 01/11/24 the patient is 63-year-old male who is currently admitted to the hospital with acute hypoxic respiratory failure. Cardiology was consulted for elevated troponins as well as congestive heart failure. Patient was found to have reduced ejection fraction at 30%. He is currently sedated on ventilator on mini mal pressor support. GENERAL: Well-appearing, well-nourished and in no acute distress. Currently s edated on ventilator. NECK: Supple without JVD or thyromegaly. LUNGS: Breath sounds coarse to auscultation bilaterally. Respiration equal and unlabored. Bilateral rhonchi. HEART: Regular rate and rhythm without murmurs, rubs or gallops. S1 and S2 heard. EXTREMITIES: Normal range of motion, no edema. No clubbing or cyanosis. Peripheral pulses intact and strong. TELEMETRY: Sinus rhythm overnight. Average heart rate in the 50s. No arrhythmias. IMPRESSION: Acute hypoxic respiratory failure, currently sedated on ventilator Congestive heart failure, systolic Cardiomyopathy, unspecified History of COPD PLAN: Continue supportive treatment and diuresis Consideration for coronary angiogram once stable Further recommendations based upon clinical course I am dictating on behalf of Dr Henry Rankin's history/physical and assessment/plan. Objective - Vital Signs Vital signs: Vital Signs Temp 98.4 F 01/11/24 08:00 Pulse 53 L 01/11/24 08:51 Resp 20 01/11/24 08:00 BP 118/75 01/11/24 08:00 Pulse Ox 95 01/11/24 08:00 FiO2 30 01/11/24 08:44 Intake & Output 01/10/24 01/11/24 01/11/24 18:59 06:59 18:59 Intake Total 574.131 816.438 100 Output Total 1550 1470 50 Balance -975.869 -653.562 50 Weight 76.5 kg Intake: IV 120 120 20 0.9 120 120 20 Intake, IV Titration 194.131 161.438 Amount propofoL 1,000 mg In 194.131 161.438 Empty Bag 1 bag @ 15 MCG/ KG/MIN 6.124 mls/hr IV . [id number] [facility] Rx#:[id number] Tube Feeding 260 505 80 Other 30 Output: Urine 1550 1470 50 Other: Voiding Method Indwelling Catheter Indwelling Catheter Indwelling Catheter - Labs CBC & Chem 7: 04/08/24 02:26 01/11/24 02:26 Labs: Abnormal Lab Results - Last 24 Hours (Table) 01/10/24 01/10/24 01/11/24 Range/Units 11:45 18:43 02:26 Lymphocytes # 0.6 L (1.0-4.8) k/uL ABG pCO2 (35-45) mmHg ABG pO2 (83-108) mmHg ABG HCO3 (21-25) mmol/L ABG Total CO2 (19-24) mmol/L Chloride (98-107) mmol/L BUN (9-20) mg/dL Glucose (74-99) mg/dL POC Glucose (mg/dL) 136 H 140 H (70-110) mg/dL 01/11/24 01/11/24 01/11/24 Range/Units 02:26 04:33 05:16 Lymphocytes # (1.0-4.8) k/uL ABG pCO2 48 H (35-45) mmHg ABG pO2 75 L (83-108) mmHg ABG HCO3 31 H (21-25) mmol/L ABG Total CO2 32 H (19-24) mmol/L Chloride 111 H (98-107) mmol/L BUN 31 H (9-20) mg/dL Glucose 138 H (74-99) mg/dL POC Glucose (mg/dL) 138 H (70-110) mg/dL Microbiology - Last 24 Hours (Table) 01/08/24 01:20 Blood Culture - Preliminary Blood 01/08/24 01:05 Blood Culture - Preliminary Blood 01/08/24 01:00 Gram Stain - Final Sputum Sputum Culture - Final
[2024-01-11 17:55] LABS: Glucose,Whole Blood 120 mg/dL (70-110)
[2024-01-11 18:06] LABS: Glucose,Whole Blood 130 mg/dL (70-110)
[2024-01-11] MEDS: FUROSEMIDE 10 MG/ML 4 ML VIAL IV SCH (20:23)
[2024-01-12 00:03] LABS: Glucose,Whole Blood 121 mg/dL (70-110)
[2024-01-12 04:48] LABS: ABG Base Excess 10.9 mmol/L; ABG HCO3 35 mmol/L (21-25); ABG PCO2 48 mmHg (35-45); ABG PH 7.47 (7.35-7.45); ABG PO2 74 mmHg (83-108); ABG TCO2 36 mmol/L (19-24); Allen Test Performed? Yes
[2024-01-12 04:57] LABS: Basophils % (A) 0 %; Eosinophils % (A) 0 %; HCT 48.4 % (39.0-53.0); HGB 15.4 gm/dL (13.0-17.5); Lymphocytes # (A) 0.7 k/uL (1.0-4.8); Lymphocytes % (A) 7 %; MCH 30.5 pg (25.0-35.0); MCHC 31.7 g/dL (31.0-37.0); Mean Platelet Volume 9.5; Monocytes # (A) 0.6 k/uL (0-1.0); Monocytes % (A) 7 %; Neutrophils # (A) 8.4 k/uL (1.3-7.7); Neutrophils % (A) 85 %; Platelet Count 220 k/uL (150-450); RBC 5.04 m/uL (4.30-5.90); RDW 14.3 % (11.5-15.5); WBC 9.9 k/uL (3.8-10.6)
[2024-01-12 05:12] LABS: African American GFR (CKD) 78 (>60 ml/min/1.73 sqM); Anion Gap 8 mmol/L; Blood Urea Nitrogen 53 mg/dL (9-20); Calcium 9.2 mg/dL (8.4-10.2); Carbon Dioxide 30 mmol/L (22-30); Chloride 110 mmol/L (98-107); Glucose 135 mg/dL (74-99); Non-African American GFR(CKD) 68 (>60 ml/min/1.73 sqM); Potassium 3.9 mmol/L (3.5-5.1); Sodium 148 mmol/L (137-145)
[2024-01-12 05:31] LABS: Glucose,Whole Blood 121 mg/dL (70-110)
[2024-01-12 06:12] LABS: Glucose,Whole Blood 137 mg/dL (70-110)
--- NOTE | 2024-01-12 08:11 | XR ---
EXAMINATION TYPE: XR chest 1V portable DATE OF EXAM: 01/12/2024 COMPARISON: 01/11/2024 HISTORY: Respiratory failure TECHNIQUE: Single frontal view of the chest is obtained. FINDINGS: ET and NG tube noted. There is bilateral consolidation and small effusion. No pneumothorax . Arthropathy of the shoulders. Osseous structures grossly intact. IMPRESSION: Stable pleural parenchymal changes correlate for CHF. Otherwise consider pneumonia.
--- NOTE | 2024-01-12 09:30 | P.PN ---
Subjective Progress Note Date: 01/12/24 the patient is 63-year-old male who is currently admitted to the hospital with acute hypoxic respiratory failure. Cardiology was consulted for elevated troponins as well as congestive heart failure. Patient was found to have reduced ejection fraction at 30%. He is currently sedated on ventilator. He is no longer on vasopressors. According to nursing staff he has yet to undergo sedation holiday. Chest x-ray shows bilateral consolidation and small effusion. GENERAL: Well-appearing, well-nourished and in no acute distress. Currently sedated on ventilator. NECK: Supple without JVD or thyromegaly. LUNGS: Breath sounds coarse to auscultation bilaterally. Respiration equal and unlabored. Bilateral rhonchi. HEART: Regular rate and rhythm without murmurs, rubs or gallops. S1 and S2 heard. EXTREMITIES: Normal range of motion, no edema. No clubbing or cyanosis. Peripheral pulses intact and strong. TELEMETRY: Sinus rhythm overnight. Average heart rate in the 70s. No arrhythmias. IMPRESSION: Acute hypoxic respiratory failure, currently sedated on ventilator Congestive heart failure, systolic Cardiomyopathy, unspecified History of COPD History of EtOH abuse PLAN: Continue supportive treatment and diuresis Consideration for ischemia workup Further recommendations to be based upon clinical course I am dictating on behalf of Dr Henry Rankin's history/physical and assessment/plan. Objective - Vital Signs Vital signs: Vital Signs Temp 97.9 F 01/12/24 08:00 Pulse 80 01/12/24 08:37 Resp 22 01/12/24 08:30 BP 127/75 01/12/24 08:30 Pulse Ox 92 L 01/12/24 08:30 FiO2 30 01/12/24 08:00 Intake & Output 01/11/24 01/12/24 01/12/24 18:59 06:59 18:59 Intake Total 901.498 986.906 149 Output Total 1860 2210 210 Balance -958.502 -1223.094 -61 Weight 76.5 kg 72 kg Intake: IV 120 120 20 0.9 120 120 20 Intake, IV Titration 187.498 177.906 Amount fentaNYL (PF). 1,000 mcg 19.392 In Sodium Chloride 0.9% 80 ml @ 0.5 MCG/KG/HR 3. 402 mls/hr IV .Q24H [facility] Rx#:[id number] propofoL 1,000 mg In 168.106 177.906 Empty Bag 1 bag @ 15 MCG/ KG/MIN 6.124 mls/hr IV . [id number] [facility] Rx#:[id number] Tube Feeding 594 599 129 Other 90 Output: Urine 1860 2210 210 Other: Voiding Method Indwelling Catheter Indwelling Catheter Indwelling Catheter - Labs CBC & Chem 7: 01/12/24 04:03 01/12/24 04:03 Labs: Abnormal Lab Results - Last 24 Hours (Table) 01/11/24 01/11/24 01/11/24 Range/Units 11:47 17:52 18:03 Neutrophils # (1.3-7.7) k/uL Lymphocytes # (1.0-4.8) k/uL ABG pH (7.35-7.45) ABG pCO2 (35-45) mmHg ABG pO2 (83-108) mmHg ABG HCO3 (21-25) mmol/L ABG Total CO2 (19-24) mmol/L Sodium (137-145) mmol/L Chloride (98-107) mmol/L BUN (9-20) mg/dL Glucose (74-99) mg/dL POC Glucose (mg/dL) 128 H 120 H 130 H (70-110) mg/dL 01/12/24 01/12/24 01/12/24 Range/Units 00:01 04:03 04:03 Neutrophils # 8.4 H (1.3-7.7) k/uL Lymphocytes # 0.7 L (1.0-4.8) k/uL ABG pH (7.35-7.45) ABG pCO2 (35-45) mmHg ABG pO2 (83-108) mmHg ABG HCO3 (21-25) mmol/L ABG Total CO2 (19-24) mmol/L Sodium 148 H (137-145) mmol/L Chloride 110 H (98-107) mmol/L BUN 53 H (9-20) mg/dL Glucose 135 H (74-99) mg/dL POC Glucose (mg/dL) 121 H (70-110) mg/dL 01/12/24 01/12/24 01/12/24 Range/Units 04:46 05:29 06:10 Neutrophils # (1.3-7.7) k/uL Lymphocytes # (1.0-4.8) k/uL ABG pH 7.47 H (7.35-7.45) ABG pCO2 48 H (35-45) mmHg ABG pO2 74 L (83-108) mmHg ABG HCO3 35 H (21-25) mmol/L ABG Total CO2 36 H (19-24) mmol/L Sodium (137-145) mmol/L Chloride (98-107) mmol/L BUN (9-20) mg/dL Glucose (74-99) mg/dL POC Glucose (mg/dL) 121 H 137 H (70-110) mg/dL Microbiology - Last 24 Hours (Table) 01/08/24 01:20 Blood Culture - Preliminary Blood 01/08/24 01:05 Blood Culture - Preliminary Blood
[2024-01-12] MEDS ORDERED: Potassium Replacement Protocol 1 EACH MISC MISCELLANE PRN (10:10)
[2024-01-12] MEDS: POTASSIUM BICARBONATE/CIT AC 20 MEQ TABLET.EFF NG-TUBE ONE (10:14)
[2024-01-12 11:44] LABS: Glucose,Whole Blood 119 mg/dL (70-110)
--- NOTE | 2024-01-12 13:13 | P.PN ---
Subjective Progress Note Date: 01/12/24 This is a 63-year-old male patient who presented to the ER just after midnight today with complaints of chest pain shortness of breath cough congestion. He had stated he had start sharp stabbing pain in the left chest progressively worsening shortness of breath. Apparently he refused to come by EMS that had been called. He came in by family car. He was noted to be davis, pale diaphoretic, tachypneic and tachycardic and severe respiratory distress. Initial trial of BiPAP and Ativan failed and the patient was intubated and placed on the mechanical ventilator. CT angio gram was suboptimal. No central saddle pulmonary embolism. Could not exclude segmental or subsegmental PE. No aortic dissection. There are small to moderate-sized bilateral pleural effusions. Bilateral multifocal glass opacities and focal consolidations. EKG revealed sinus tachycardia without significant ST or T wave abnormalities. White count 13.3. Hemoglobin 16.3. Platelets 266. Sodium 131. Potassium 4.0. Bicarb 18. BUN 19. Creatinine 1.14. Glucose 257. Magnesium 2.1. AST 226. ALT 198. Initial troponin 0.028. Then 0.088. proBNP 12,500. Viral screen was negative. He is intubated on mechanical ventilator currently on assist-control mode at a rate of 20, tidal volume 450, FiO2 40% and a PEEP of 5. Most recent arterial blood gases revealed a PaO2 of 153, pCO2 38 and a pH of 7.38. He is on propofol at 15 mcg/kg/min. Fentanyl drip at 1 mcg/kg/h. Receive ceftriaxone and azithromycin. The patient is seen today January 09, 2024 in follow-up in the intensive care unit. He remains intubated on mechanical ventilator at assist-control rate of 20, tidal volume 450, FiO2 40% and a PEEP of 5. Morning blood gases revealed a PaO2 of 89, pCO2 of 48 and a pH of 7.29. He remains on propofol at 25 mcg/kg/min. Fentanyl at 1 mcg/kg/h. He is continued on DuoNeb ventilations, Pulmicort and performing scintillations, Solu-Medrol. White count 6.1. Hemoglobin 13.8. Platelets 208. Sodium 137. Potassium 4.5. Bicarb 19. BUN 17. Creatinine 0.97. Glucose 126. Echocardiogram reveals a left ventricular systolic ejection fraction of 30%. There is global left ventricular hypokinesia. Chest x-ray reveals scattered perihilar and basilar infiltrates with small pleural effusions. Stable compared to previous. He was given 20 mg of Lasix IV push this morning. Currently in a -1.8 L balance. The patient is seen today January 10, 2024 in follow-up in the intensive care unit. He remains intubated on the mechanical ventilator with current settings of assist-control mode with a rate of 20, tidal volume 450, FiO2 30% and a PEEP of 5. Morning blood gases reveal a pO2 of 135, pCO2 43 and a pH of 7.40. He is sedated on propofol at 35 mcg/kg/min. Fentanyl at 1 mcg/kg/h. Normal saline at KVO. He is being nourished with vital HP at 20 MLS per hour with a goal of 47 mL/h. His procalcitonin was 0.07. His antibiotics were discontinued. He remains on DuoNeb ventilations, Pulmicort and Perforomist inhalations, Solu- Medrol. Lovenox for DVT prophylaxis. Sputum culture revealed no growth. Blood cultures reveal no growth thus far. White count 8.3. Hemoglobin 13.3. Platelets 190. Sodium 140. Potassium 4.4. Bicarb 23. BUN 20. Creatinine 1.03. Glucose 143. On today's evaluation of 01/11/2024, the patient remains intubated on the mechanical ventilator. The patient is post hypoxic respiratory failure due to pulmonary edema and CHF as the patient has systolic heart failure with an ejection fraction of 30%. The patient remains intubated on the mechanical ventilator. He also has history of alcoholism. He has required higher dose of sedation and the patient is currently on propofol at 35 mcg/kg/min and fentanyl at 1 mcg/kg/h. This morning, he is on assist-control mode with rate of 20, tidal volume of 450, FiO2 of 30% with a PEEP of 5. The blood gas shows a pH of 7.4 with a pCO2 of 48 and pO2 of 75. IV fluids are currently at KVO. Peak airway pressures of 27 and a static airway pressure is 16. The patient's chest x-ray still showing pulmonary edema with bilateral pleural effusion. There is also areas of patchy infiltration bilaterally. Procalcitonin level has not been elevated and the patient was treated with a course of antibiotics. I did appreciate some patchy infiltrates on the initial CAT scan of the chest that was done at time of admission. Nevertheless, the viral screen has also been negative. The patient is hemodynamically stable on no pressors. Echocardiogram showed impaired LV function. Remains on IV Lasix. No significant edema lower extremities. The white cell count of 8.4 with a hemoglobin of 14 and a platelet count of 203. The BUN is at 31 with a creatinine of 1.06 and a sodium levels at 143 with a potassium level of 4.1. The patient's overall fluid balance over the past 24 hours has been -1.6 L. The blood cultures been negative. Sputum culture has been also negative. The patient is also on enteral feeding for nutritional support and the patient is on vital HP at 30-40. On today's evaluation of 01/12/2024, the patient is being seen for a follow-up. This morning, the patient is off fentanyl and the patient is on propofol at 50 mcg/kg/min. Afebrile. Hemodynamically stable on no pressors. Remains on the mechanical ventilator on assist-control mode with rate of 22, tidal volume of 450, FiO2 of 30% with a PEEP of 5. Peak airway pressure is 23. Blood gas showed pH of 7.47 with a pCO2 of 48 and pO2 of 74. Fluid balance has been -2.1 L over the past 24 hours. Chest x-ray from today still showing bilateral pleu ral effusions. ET tube is in good location. The patient is on Glucerna at rate of 47 cc an hour. Otherwise, no other significant events overnight. The white cell count today is at 9.9 with a hemoglobin of 15.4 and a platelet count of 220. BUN is at 53 with a creatinine of 1.15. Sodium levels at 148, potassium levels at 3.9 and the chloride is 110. The patient remains on Lasix 40 mg IV every 12 hours. The patient is on Lovenox for DVT prophylaxis. The patient remains on DuoNeb nebulized treatments [id number] and IV Solu-Medrol 40 mg every 6 hours. He remains on IV Protonix. He has no shortness of breath complaining of sedation holiday and weaning parameters need to be checked in consideration for extubation today. Objective - Vital Signs Vital signs: Vital Signs Temp 99.2 F 01/12/24 12:00 Pulse 91 04/09/24 12:00 Resp 18 01/12/24 12:00 BP 158/111 01/12/24 12:00 Pulse Ox 96 01/12/24 12:00 FiO2 30 01/12/24 12:00 Intake & Output 01/11/24 01/12/24 01/12/24 18:59 06:59 18:59 Intake Total 901.498 986.906 467.153 Output Total 1860 2210 1860 Balance -958.502 -1223.094 -1392.847 Weight 76.5 kg 72 kg Intake: IV 120 120 60 0.9 120 120 60 Intake, IV Titration 187.498 177.906 90.153 Amount fentaNYL (PF). 1,000 mcg 19.392 In Sodium Chloride 0.9% 80 ml @ 0.5 MCG/KG/HR 3. 402 mls/hr IV .Q24H [facility] Rx#:[id number] propofoL 1,000 mg In 168.106 177.906 90.153 Empty Bag 1 bag @ 15 MCG/ KG/MIN 6.124 mls/hr IV . [id number] [facility] Rx#:[id number] Tube Feeding 594 599 317 Other 90 Output: Urine 1860 2210 1860 Other: Voiding Method Indwelling Catheter Indwelling Catheter Indwelling Catheter - Exam GENERAL EXAM: Intubated, sedated 63-year-old male, sedated on a combination of propofol and fentanyl. Synchronous with mechanical ventilator. HEAD: Normocephalic. EYES: Sluggish reaction of pupils, equal size. NOSE: Clear with pink turbinates. THROAT: Oral endotracheal and gastric tube and no erythema or exudates. NECK: No masses, no JVD. CHEST: No chest wall deformity. LUNGS: Equal air entry with scattered rhonchi, crackles in the bases. CVS: S1 and S2 normal with no audible murmur, regular rhythm. ABDOMEN: No hepatosplenomegaly, normal bowel sounds, no guarding or rigidity. SPINE: No scoliosis or deformity SKIN: No rashes CENTRAL NERVOUS SYSTEM: Sedated, tone is normal in all 4 extremities. EXTREMITIES: There is no peripheral edema. No clubbing, no cyanosis. Peripheral pulses are intact. - Labs CBC & Chem 7: 01/12/24 04:03 01/12/24 04:03 Labs: Abnormal Lab Results - Last 24 Hours (Table) 01/11/24 01/11/24 01/12/24 Range/Units 17:52 18:03 00:01 Neutrophils # (1.3-7.7) k/uL Lymphocytes # (1.0-4.8) k/uL ABG pH (7.35-7.45) ABG pCO2 (35-45) mmHg ABG pO2 (83-108) mmHg ABG HCO3 (21-25) mmol/L ABG Total CO2 (19-24) mmol/L Sodium (137-145) mmol/L Chloride (98-107) mmol/L BUN (9-20) mg/dL Glucose (74-99) mg/dL POC Glucose (mg/dL) 120 H 130 H 121 H (70-110) mg/dL 01/12/24 01/12/24 01/12/24 Range/Units 04:03 04:03 04:46 Neutrophils # 8.4 H (1.3-7.7) k/uL Lymphocytes # 0.7 L (1.0-4.8) k/uL ABG pH 7.47 H (7.35-7.45) ABG pCO2 48 H (35-45) mmHg ABG pO2 74 L (83-108) mmHg ABG HCO3 35 H (21-25) mmol/L ABG Total CO2 36 H (19-24) mmol/L Sodium 148 H (137-145) mmol/L Chloride 110 H (98-107) mmol/L BUN 53 H (9-20) mg/dL Glucose 135 H (74-99) mg/dL POC Glucose (mg/dL) (70-110) mg/dL 01/12/24 01/12/24 01/12/24 Range/Units 05:29 06:10 11:32 Neutrophils # (1.3-7.7) k/uL Lymphocytes # (1.0-4.8) k/uL ABG pH (7.35-7.45) ABG pCO2 (35-45) mmHg ABG pO2 (83-108) mmHg ABG HCO3 (21-25) mmol/L ABG Total CO2 (19-24) mmol/L Sodium (137-145) mmol/L Chloride (98-107) mmol/L BUN (9-20) mg/dL Glucose (74-99) mg/dL POC Glucose (mg/dL) 121 H 137 H 119 H (70-110) mg/dL Microbiology - Last 24 Hours (Table) 01/08/24 01:20 Blood Culture - Preliminary Blood 01/08/24 01:05 Blood Culture - Preliminary Blood Assessment and Plan Plan: Acute hypoxic respiratory failure requiring intubation and mechanical ventilatory support possibly secondary to fluid volume overload. BNP 12,500. Procalcitonin was negative at 0.07. Note that the acute hypoxic respiratory failure was predominantly related to CHF as the patient had interstitial edema/pulmonary edema in addition to bilateral pleural effusions. At same time, the patient had patchy bilateral pulmonary filtrates which could potentially reflect infection. Procalcitonin level has been low. Viral screen has been negative. The chest x-ray from today still showing bilateral pleural effusions and the patient remains in negative fluid balance. The patient continues to diurese. Chest x-ray still showing bilateral pleural effusions. Nevertheless, the patient is demonstrating adequate oxygenation and ventilation with lower airway pressures. He may be considered for a weaning trial today. 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 The patient has global hypokinesis Troponin leak, secondary to above Chronic alcohol abuse drinking approximately 8-12 beers daily, currently sedated with propofol and fentany has been discontinued Transaminitis, secondary to above History of chronic tobacco dependence Mild hypochloremic hyponatremia related to diuresis Plan: Wean off propofol Assess mental status Assess weaning parameters If adequate, the patient will be given a spontaneous breathing trial Hold tube feeds Continue the Lasix to 40 mg every 12 hours IV Monitor fluid balance Repeat chest x-ray, if there is persistent oral effusions, the patient would benefit from a thoracentesis. May need a bronchoscopy if there is no clearing of the patchy bilateral pulm infiltrates seen earlier Continue bronchodilators, steroids and the patient is on IV Solu-Medrol 40 mg every 6 hours. No significant bronchospasm on today's evaluation. Continue metoprolol and Zestril. Metoprolol 25 mg twice a day and Zestril 10 mg p.o. daily. Lovenox for DVT prophylaxis We will continue to follow and will make further recommendations based on the progress. Critical care evaluation that was done more than 30 minutes. Time with Patient: Greater than 30
[2024-01-12] MEDS: IPRATROPIUM-ALBUTEROL 3 ML NEB INHALATION SCH (13:46)
[2024-01-12] MEDS: carvediloL 6.25 MG TAB PO SCH (14:30)
[2024-01-12 17:09] LABS: Glucose,Whole Blood 198 mg/dL (70-110)
[2024-01-12] MEDS ORDERED: DEXTROSE 50% SYRINGE 50 ML IVP PRN ×2 (17:09)
[2024-01-12] MEDS: INSULIN ASPART (NovoLOG) 100 UNIT/ML VIAL SQ SCH (17:27)
[2024-01-12 19:17] LABS: Glucose,Whole Blood 129 mg/dL (70-110)
[2024-01-12] MEDS: lisinopriL 10 MG TAB PO SCH (19:35)
--- NOTE | 2024-01-12 21:00 | P.PN ---
Subjective patient is a 63-year-old gentleman with past medically significant for COPD was brought to the ER for respiratory distress. History was taken from patient's family according to them patient has been complaining of increased cough and shortness of breath for the last day. Patient also started complaining of left- sided chest pain which is sharp, constant, nonradiating, no aggravating or relieving associated with this chest pain. Patient was complaining of worsening shortness of breath. Patient was brought to the ER by family. In the ER, esme mckinley was found to be tachypneic, diaphoretic and tachycardic, initially patient was given trial on BiPAP but was initially intubated as he was not tolerating the BiPAP. Initial lab work done in the ER showed WBC 13.3, hemoglobin 16.3, platelet count 266, INR 1, sodium 131, potassium 4, BUN 19, creatinine 1.14, glucose 257, bilirubin 1.4, AST 26, ALT 198, alk phosphatase 170 troponin 0.088 Influenza A not detected Influenza B not detected RSV not detected COVID-19 not detected EKG done in the ER showed heart rate of 127, OH 124, QRS 82, no ST segment elevation or depression seen, no T-wave inversions seen. Chest x-ray done in the ER showed new central opacities favoring mild to moderate edema versus developing acute infiltrates. Correlate clinically CT chest done PE protocol done showed suboptimal study without central saddle pulmonary embolism, no aortic dissection. Small moderate-sized bilateral pleural effusion, bilateral multifocal groundglass opacities and consolidation seen Patient admitted to ICU 01/08. Patient seen and examined. Continues to be intubated. Currently labs are WBCs 0.1, hemoglobin 13.8, platelet count 208, sodium 137, potassium 4.5, BUN 17, creatinine 0.97 calcium is 8.2. Antibiotics were discontinued as Pro-Federico is normal. 01/09. Patient seen and examined. Patient was given spontaneous breathing trial today, patient became restless and tachypneic. Critical care did not attempt extubation today. 01/10. Patient seen and examined. Blood work done this morning showedWBC 8.4, hemoglobin 14, platelet count 203, sodium 143, potassium 4.1, BUN 31, creatinine 1.06 patient will be going to a spontaneous breathing trial again today. Currently on tube feeding 01/12/2024 Patient remains in the ICU intubated and sedated He has a PEEP of 5 and FiO2 of 30% Cristobal catheter in place Patient is on restraints for self protection Patient on IV Solu-Medrol and IV Lasix Labs and vitals look stable, creatinine 1.1 and sodium 148 Objective - Vital Signs Vital signs: Vital Signs Temp 97.9 F 01/12/24 08:00 Pulse 80 01/12/24 08:37 Resp 22 01/12/24 08:30 BP 127/75 01/12/24 08:30 Pulse Ox 92 L 01/12/24 08:30 FiO2 30 01/12/24 08:00 Intake & Output 01/11/24 01/12/24 01/12/24 18:59 06:59 18:59 Intake Total 901.498 986.906 206 Output Total 1860 2210 1010 Balance -958.502 -1223.094 -804 Weight 76.5 kg 72 kg Intake: IV 120 120 30 0.9 120 120 30 Intake, IV Titration 187.498 177.906 Amount fentaNYL (PF). 1,000 mcg 19.392 In Sodium Chloride 0.9% 80 ml @ 0.5 MCG/KG/HR 3. 402 mls/hr IV .Q24H [facility] Rx#:[id number] propofoL 1,000 mg In 168.106 177.906 Empty Bag 1 bag @ 15 MCG/ KG/MIN 6.124 mls/hr IV . [id number] [facility] Rx#:[id number] Tube Feeding 594 599 176 Other 90 Output: Urine 1860 2210 1010 Other: Voiding Method Indwelling Catheter Indwelling Catheter Indwelling Catheter - Exam -GENERAL: The patient is intubated and sedated HEENT: Pupils are round and equally reacting to light. EOMI. No scleral icterus. No conjunctival pallor. Normocephalic, atraumatic. No pharyngeal erythema. No thyromegaly. CARDIOVASCULAR: S1 and S2 present. No murmurs, rubs, or gallops. PULMONARY: Chest is clear to auscultation, no wheezing , no crackles. ABDOMEN: Soft, nontender, nondistended, normoactive bowel sounds. No palpable organomegaly. MUSCULOSKELETAL: No joint swelling or deformity. EXTREMITIES: No cyanosis, clubbing, or pedal edema. NEUROLOGICAL: Gross neurological examination did not reveal any focal deficits. SKIN: No rashes. no petechiae. - Labs CBC & Chem 7: 01/12/24 04:03 01/12/24 04:03 Labs: Abnormal Lab Results - Last 24 Hours (Table) 01/11/24 01/11/24 01/11/24 Range/Units 11:47 17:52 18:03 Neutrophils # (1.3-7.7) k/uL Lymphocytes # (1.0-4.8) k/uL ABG pH (7.35-7.45) ABG pCO2 (35-45) mmHg ABG pO2 (83-108) mmHg ABG HCO3 (21-25) mmol/L ABG Total CO2 (19-24) mmol/L Sodium (137-145) mmol/L Chloride (98-107) mmol/L BUN (9-20) mg/dL Glucose (74-99) mg/dL POC Glucose (mg/dL) 128 H 120 H 130 H (70-110) mg/dL 01/12/24 01/12/24 01/12/24 Range/Units 00:01 04:03 04:03 Neutrophils # 8.4 H (1.3-7.7) k/uL Lymphocytes # 0.7 L (1.0-4.8) k/uL ABG pH (7.35-7.45) ABG pCO2 (35-45) mmHg ABG pO2 (83-108) mmHg ABG HCO3 (21-25) mmol/L ABG Total CO2 (19-24) mmol/L Sodium 148 H (137-145) mmol/L Chloride 110 H (98-107) mmol/L BUN 53 H (9-20) mg/dL Glucose 135 H (74-99) mg/dL POC Glucose (mg/dL) 121 H (70-110) mg/dL 01/12/24 01/12/24 01/12/24 Range/Units 04:46 05:29 06:10 Neutrophils # (1.3-7.7) k/uL Lymphocytes # (1.0-4.8) k/uL ABG pH 7.47 H (7.35-7.45) ABG pCO2 48 H (35-45) mmHg ABG pO2 74 L (83-108) mmHg ABG HCO3 35 H (21-25) mmol/L ABG Total CO2 36 H (19-24) mmol/L Sodium (137-145) mmol/L Chloride (98-107) mmol/L BUN (9-20) mg/dL Glucose (74-99) mg/dL POC Glucose (mg/dL) 121 H 137 H (70-110) mg/dL Microbiology - Last 24 Hours (Table) 01/08/24 01:20 Blood Culture - Preliminary Blood 01/08/24 01:05 Blood Culture - Preliminary Blood Assessment and Plan Assessment: Acute hypoxemic respiratory failure Acute systolic CHF exacerbation with ejection fraction 30% Acute COPD exacerbation Elevated LFTs Elevated troponin, most likely type II secondary to CHF Alcohol use disorder Plan: Continue with mechanical ventilation per critical care team Continue with IV Solu-Medrol Continue with IV Lasix 40 mg Continue with Coreg and lisinopril Pulmonary and cardiology consult Labs and medication were reviewed.. Continue same treatment. Continue with symptomatic treatment. Resume home medication. Monitor labs and vitals. DVT and GI prophylaxis. Further recommendations as per clinical course of the patient DVT prophylaxis: Subcutaneous Lovenox GI Prophylaxis: ppi Prognosis is guarded
[2024-01-13 06:02] LABS: Glucose,Whole Blood 122 mg/dL (70-110)
[2024-01-13 06:08] LABS: Glucose,Whole Blood 118 mg/dL (70-110)
[2024-01-13 06:23] LABS: Basophils % (A) 0 %; Eosinophils % (A) 0 %; Lymphocytes # (A) 1.1 k/uL (1.0-4.8); Lymphocytes % (A) 10 %; MCH 30.4 pg (25.0-35.0); MCHC 31.3 g/dL (31.0-37.0); Mean Platelet Volume 9.1; Monocytes # (A) 0.8 k/uL (0-1.0); Monocytes % (A) 7 %; Neutrophils # (A) 9.4 k/uL (1.3-7.7); Neutrophils % (A) 82 %; Platelet Count 201 k/uL (150-450); RBC 5.26 m/uL (4.30-5.90); RDW 13.3 % (11.5-15.5); WBC 11.5 k/uL (3.8-10.6)
[2024-01-13 06:47] LABS: African American GFR (CKD) >90 (>60 ml/min/1.73 sqM); Anion Gap 8 mmol/L; Blood Urea Nitrogen 48 mg/dL (9-20); Calcium 9.3 mg/dL (8.4-10.2); Carbon Dioxide 30 mmol/L (22-30); Chloride 107 mmol/L (98-107); Glucose 117 mg/dL (74-99); Non-African American GFR(CKD) 86 (>60 ml/min/1.73 sqM); Potassium 4.3 mmol/L (3.5-5.1); Sodium 145 mmol/L (137-145)
--- NOTE | 2024-01-13 07:49 | XR ---
EXAMINATION TYPE: XR chest 1V portable DATE OF EXAM: 01/13/2024 COMPARISON: 01/12/2024 HISTORY: Respiratory failure TECHNIQUE: Single frontal view of the chest is obtained. FINDINGS: ET and NG tube abdomen removed. There is bilateral consolidation and small effusion interv al reduction. No pneumothorax. Arthropathy of the shoulders. Osseous structures grossly intact. IMPRESSION: Persistent pleural parenchymal changes correlate for CHF. Otherwise consider pneumonia. Interval reduction in amount of pleural
[2024-01-13] MEDS: FUROSEMIDE 10 MG/ML 4 ML VIAL IV SCH (08:13)
--- NOTE | 2024-01-13 09:29 | P.PN ---
Subjective Progress Note Date: 01/13/24 The patient is 63-year-old male who is currently admitted to the hospital with acute hypoxic respiratory failure. Cardiology was consulted for elevated troponins as well as congestive heart failure. Patient was found to have reduced ejection fraction at 30%. The patient was able to be extubated yesterda y and is awake and alert at the time of my examination. The patient states he does not have any chest pain or chest pressure. He also denies any difficulty breathing. He reports being weak and fatigued. He does have a productive cough. He states prior to coming to the hospital he did have a cough but does not feel as though he had any chest discomfort. GENERAL: Well-appearing, well-nourished and in no acute distress. NECK: Supple without JVD or thyromegaly. LUNGS: Breath sounds coarse to auscultation bilaterally. Respiration equal and unlabored. Bilateral rhonchi. HEART: Regular rate and rhythm without murmurs, rubs or gallops. S1 and S2 heard. EXTREMITIES: Normal range of motion, no edema. No clubbing or cyanosis. Peripheral pulses intact and strong. TELEMETRY: Sinus rhythm overnight. Average heart rate in the 70s. No arrhythmias. IMPRESSION: Acute hypoxic respiratory failure Congestive heart failure, systolic Cardiomyopathy, unspecified History of COPD History of EtOH abuse PLAN: Continue supportive treatment and aggressive pulmonary hygiene Blood pressure medications were adjusted yesterday and should improve over the next 24 hours Medical management for CAD with ischemia workup to be determined at a later date Further recommendations to be based upon the patient's clinical course I am dictating on behalf of Dr Henry Rankin's history/physical and assessment /plan. Objective - Vital Signs Vital signs: Vital Signs Temp 97.9 F 01/13/24 08:00 Pulse 70 01/13/24 08:34 Resp 16 01/13/24 08:00 BP 135/84 01/13/24 08:00 Pulse Ox 96 01/13/24 08:00 FiO2 30 01/12/24 16:00 Intake & Output 01/12/24 01/13/24 01/13/24 18:59 06:59 18:59 Intake Total 487.153 500 Output Total 2410 940 785 Balance -1922.847 -940 -285 Weight 71.7 kg Intake: IV 80 0.9 80 Intake, IV Titration 90.153 Amount propofoL 1,000 mg In 90.153 Empty Bag 1 bag @ 15 MCG/ KG/MIN 6.124 mls/hr IV . [id number] [facility] Rx#:[id number] Oral 500 Tube Feeding 317 Output: Urine 2410 940 785 Other: Voiding Method Indwelling Catheter Indwelling Catheter Indwelling Catheter - Labs CBC & Chem 7: 01/13/24 05:32 01/13/24 05:32 Labs: Abnormal Lab Results - Last 24 Hours (Table) 01/12/24 01/12/24 01/12/24 Range/Units 11:32 17:07 19:15 WBC (3.8-10.6) k/uL Neutrophils # (1.3-7.7) k/uL BUN (9-20) mg/dL Glucose (74-99) mg/dL POC Glucose (mg/dL) 119 H 198 H 129 H (70-110) mg/dL 01/13/24 01/13/24 01/13/24 Range/Units 05:32 05:32 06:00 WBC 11.5 H (3.8-10.6) k/uL Neutrophils # 9.4 H (1.3-7.7) k/uL BUN 48 H (9-20) mg/dL Glucose 117 H (74-99) mg/dL POC Glucose (mg/dL) 122 H (70-110) mg/dL 01/13/24 Range/Units 06:07 WBC (3.8-10.6) k/uL Neutrophils # (1.3-7.7) k/uL BUN (9-20) mg/dL Glucose (74-99) mg/dL POC Glucose (mg/dL) 118 H (70-110) mg/dL
--- NOTE | 2024-01-13 10:39 | P.PN ---
Subjective Progress Note Date: 01/13/24 This is a 63-year-old male patient who presented to the ER just after midnight today with complaints of chest pain shortness of breath cough congestion. He had stated he had start sharp stabbing pain in the left chest progressively worsening shortness of breath. Apparently he refused to come by EMS that had been called. He came in by family car. He was noted to be davis, pale diaphoretic, tachypneic and tachycardic and severe respiratory distress. Initial trial of BiPAP and Ativan failed and the patient was intubated and placed on the mechanical ventilator. CT angio gram was suboptimal. No central saddle pulmonary embolism. Could not exclude segmental or subsegmental PE. No aortic dissection. There are small to moderate-sized bilateral pleural effusions. Bilateral multifocal glass opacities and focal consolidations. EKG revealed sinus tachycardia without significant ST or T wave abnormalities. White count 13.3. Hemoglobin 16.3. Platelets 266. Sodium 131. Potassium 4.0. Bicarb 18. BUN 19. Creatinine 1.14. Glucose 257. Magnesium 2.1. AST 226. ALT 198. Initial troponin 0.028. Then 0.088. proBNP 12,500. Viral screen was negative. He is intubated on mechanical ventilator currently on assist-control mode at a rate of 20, tidal volume 450, FiO2 40% and a PEEP of 5. Most recent arterial blood gases revealed a PaO2 of 153, pCO2 38 and a pH of 7.38. He is on propofol at 15 mcg/kg/min. Fentanyl drip at 1 mcg/kg/h. Receive ceftriaxone and azithromycin. The patient is seen today January 09, 2024 in follow-up in the intensive care unit. He remains intubated on mechanical ventilator at assist-control rate of 20, tidal volume 450, FiO2 40% and a PEEP of 5. Morning blood gases revealed a PaO2 of 89, pCO2 of 48 and a pH of 7.29. He remains on propofol at 25 mcg/kg/min. Fentanyl at 1 mcg/kg/h. He is continued on DuoNeb ventilations, Pulmicort and performing scintillations, Solu-Medrol. White count 6.1. Hemoglobin 13.8. Platelets 208. Sodium 137. Potassium 4.5. Bicarb 19. BUN 17. Creatinine 0.97. Glucose 126. Echocardiogram reveals a left ventricular systolic ejection fraction of 30%. There is global left ventricular hypokinesia. Chest x-ray reveals scattered perihilar and basilar infiltrates with small pleural effusions. Stable compared to previous. He was given 20 mg of Lasix IV push this morning. Currently in a -1.8 L balance. The patient is seen today January 10, 2024 in follow-up in the intensive care unit. He remains intubated on the mechanical ventilator with current settings of assist-control mode with a rate of 20, tidal volume 450, FiO2 30% and a PEEP of 5. Morning blood gases reveal a pO2 of 135, pCO2 43 and a pH of 7.40. He is sedated on propofol at 35 mcg/kg/min. Fentanyl at 1 mcg/kg/h. Normal saline at KVO. He is being nourished with vital HP at 20 MLS per hour with a goal of 47 mL/h. His procalcitonin was 0.07. His antibiotics were discontinued. He remains on DuoNeb ventilations, Pulmicort and Perforomist inhalations, Solu- Medrol. Lovenox for DVT prophylaxis. Sputum culture revealed no growth. Blood cultures reveal no growth thus far. White count 8.3. Hemoglobin 13.3. Platelets 190. Sodium 140. Potassium 4.4. Bicarb 23. BUN 20. Creatinine 1.03. Glucose 143. On today's evaluation of 01/11/2024, the patient remains intubated on the mechanical ventilator. The patient is post hypoxic respiratory failure due to pulmonary edema and CHF as the patient has systolic heart failure with an ejection fraction of 30%. The patient remains intubated on the mechanical ventilator. He also has history of alcoholism. He has required higher dose of sedation and the patient is currently on propofol at 35 mcg/kg/min and fentanyl at 1 mcg/kg/h. This morning, he is on assist-control mode with rate of 20, tidal volume of 450, FiO2 of 30% with a PEEP of 5. The blood gas shows a pH of 7.4 with a pCO2 of 48 and pO2 of 75. IV fluids are currently at KVO. Peak airway pressures of 27 and a static airway pressure is 16. The patient's chest x-ray still showing pulmonary edema with bilateral pleural effusion. There is also areas of patchy infiltration bilaterally. Procalcitonin level has not been elevated and the patient was treated with a course of antibiotics. I did appreciate some patchy infiltrates on the initial CAT scan of the chest that was done at time of admission. Nevertheless, the viral screen has also been negative. The patient is hemodynamically stable on no pressors. Echocardiogram showed impaired LV function. Remains on IV Lasix. No significant edema lower extremities. The white cell count of 8.4 with a hemoglobin of 14 and a platelet count of 203. The BUN is at 31 with a creatinine of 1.06 and a sodium levels at 143 with a potassium level of 4.1. The patient's overall fluid balance over the past 24 hours has been -1.6 L. The blood cultures been negative. Sputum culture has been also negative. The patient is also on enteral feeding for nutritional support and the patient is on vital HP at 30-40. On today's evaluation of 01/12/2024, the patient is being seen for a follow-up. This morning, the patient is off fentanyl and the patient is on propofol at 50 mcg/kg/min. Afebrile. Hemodynamically stable on no pressors. Remains on the mechanical ventilator on assist-control mode with rate of 22, tidal volume of 450, FiO2 of 30% with a PEEP of 5. Peak airway pressure is 23. Blood gas showed pH of 7.47 with a pCO2 of 48 and pO2 of 74. Fluid balance has been -2.1 L over the past 24 hours. Chest x-ray from today still showing bilateral pleu ral effusions. ET tube is in good location. The patient is on Glucerna at rate of 47 cc an hour. Otherwise, no other significant events overnight. The white cell count today is at 9.9 with a hemoglobin of 15.4 and a platelet count of 220. BUN is at 53 with a creatinine of 1.15. Sodium levels at 148, potassium levels at 3.9 and the chloride is 110. The patient remains on Lasix 40 mg IV every 12 hours. The patient is on Lovenox for DVT prophylaxis. The patient remains on DuoNeb nebulized treatments [id number] and IV Solu-Medrol 40 mg every 6 hours. He remains on IV Protonix. He has no shortness of breath complaining of sedation holiday and weaning parameters need to be checked in consideration for extubation today. On today's evaluation of 01/13/2024, the patient is being seen for a follow-up. The patient is awake and alert and the patient was extubated yesterday and the patient is currently on room air oxygen. No specific complaints. Communicating. He is moving all 4 extremities. Overall he is weak. Chest x- ray still showing CHF and there may be some areas of patchy pulmonary infiltrates. There is interval reduction of the amount of pleural effusion seen on earlier chest x-ray. The patient is hemodynamically stable. The patient has significant cardiomyopathy with impaired LV function. The patient is currently on Zestril 10 mg p.o. twice a day and the patient is also on chronic 6.25 mg p.o. twice a day. Remains on bronchodilators. Remains on Lasix 40 mg IV every 24 hours. The patient had labs today and the patient's white cell count is 11.5 with a hemoglobin of 16, BUN of 48 with a creatinine of 0.9 and a sodium levels at 145. Cardiac rhythm is sinus. Hemodynamically stable. No other significant issues over the past 24 hours other than this patient being weaned off the mechanical ventilator the patient has been extubated successfully. Objective - Vital Signs Vital signs: Vital Signs Temp 97.9 F 01/13/24 08:00 Pulse 70 01/13/24 08:34 Resp 16 01/13/24 08:00 BP 135/84 01/13/24 08:00 Pulse Ox 96 01/13/24 08:00 FiO2 30 01/12/24 16:00 Intake & Output 01/12/24 01/13/24 01/13/24 18:59 06:59 18:59 Intake Total 487.153 500 Output Total 2410 940 1405 Balance -1922.847 -940 -905 Weight 71.7 kg Intake: IV 80 0.9 80 Intake, IV Titration 90.153 Amount propofoL 1,000 mg In 90.153 Empty Bag 1 bag @ 15 MCG/ KG/MIN 6.124 mls/hr IV . [id number] [facility] Rx#:[id number] Oral 500 Tube Feeding 317 Output: Urine 2410 940 1405 Other: Voiding Method Indwelling Catheter Indwelling Catheter Indwelling Catheter - Exam GENERAL EXAM: Intubated, sedated 63-year-old male, awake and alert extubated on room air oxygen. HEAD: Normocephalic. EYES: Sluggish reaction of pupils, equal size. NOSE: Clear with pink turbinates. Neck was supple and without jugular venous distension, thyromegaly, or carotid bruits. Carotids were easily palpable bilaterally. There was no adenopathy. NECK: No masses, no JVD. CHEST: No chest wall deformity. LUNGS: Equal air entry with scattered rhonchi, crackles in the bases. CVS: S1 and S2 normal with no audible murmur, regular rhythm. ABDOMEN: No hepatosplenomegaly, normal bowel sounds, no guarding or rigidity. SPINE: No scoliosis or deformity SKIN: No rashes CENTRAL NERVOUS SYSTEM: Awake and alert and there is generalized global weakness, no focal neurological deficits. EXTREMITIES: There is no peripheral edema. No clubbing, no cyanosis. Peripheral pulses are intact. - Labs CBC & Chem 7: 01/13/24 05:32 01/13/24 05:32 Labs: Abnormal Lab Results - Last 24 Hours (Table) 01/12/24 01/12/24 01/12/24 Range/Units 11:32 17:07 19:15 WBC (3.8-10.6) k/uL Neutrophils # (1.3-7.7) k/uL BUN (9-20) mg/dL Glucose (74-99) mg/dL POC Glucose (mg/dL) 119 H 198 H 129 H (70-110) mg/dL 01/13/24 01/13/24 01/13/24 Range/Units 05:32 05:32 06:00 WBC 11.5 H (3.8-10.6) k/uL Neutrophils # 9.4 H (1.3-7.7) k/uL BUN 48 H (9-20) mg/dL Glucose 117 H (74-99) mg/dL POC Glucose (mg/dL) 122 H (70-110) mg/dL 01/13/24 Range/Units 06:07 WBC (3.8-10.6) k/uL Neutrophils # (1.3-7.7) k/uL BUN (9-20) mg/dL Glucose (74-99) mg/dL POC Glucose (mg/dL) 118 H (70-110) mg/dL Assessment and Plan Plan: Acute hypoxic respiratory failure requiring intubation and mechanical ventilatory support possibly secondary to fluid volume overload. BNP 12,500. Procalcitonin was negative at 0.07. Note that the acute hypoxic respiratory failure was predominantly related to CHF as the patient had interstitial edema/pulmonary edema in addition to bilateral pleural effusions. At same time, the patient had patchy bilateral pulmonary filtrates which could potentially r eflect infection. Procalcitonin level has been low. Viral screen has been negative. The patient was extubated on 01/13/2024 and the patient is currently on room air oxygen. Pleural effusions improved. The patient continues to have some changes of CHF. Will be some residual pulmonary filtrates noted bilaterally, likely postinfectious. Clinically much improved. 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 The patient has global hypokinesis, currently on Coreg and Zestoretic Troponin leak, secondary to above Chronic alcohol abuse drinking approximately 8-12 beers daily, currently sedated with propofol and fentany has been discontinued Transaminitis, secondary to above History of chronic tobacco dependence Mild hypochloremic hyponatremia related to diuresis Plan: Extubated on room air oxygen Provide diet Continue the Lasix to 40 mg every 24 hours IV Monitor fluid balance Repeat chest x-ray shows improvement of pleural effusion there is no need for thoracentesis May need a bronchoscopy if there is no clearing of the patchy bilateral pulm infiltrates seen earlier Prednisone burst taper Continue metoprolol and Zestril. Coreg 6.25 mg p.o. mg twice a day and Zestril 10 mg p.o. twice daily daily. Lovenox for DVT prophylaxis Physical therapy We will continue to follow and will make further recommendations based on the progress.
[2024-01-13 11:09] LABS: Glucose,Whole Blood 179 mg/dL (70-110)
[2024-01-13 12:24] VITALS: BMI 22.6
--- NOTE | 2024-01-13 14:29 | P.PN ---
Subjective patient is a 63-year-old gentleman with past medically significant for COPD was brought to the ER for respiratory distress. History was taken from patient's family according to them patient has been complaining of increased cough and shortness of breath for the last day. Patient also started complaining of left- sided chest pain which is sharp, constant, nonradiating, no aggravating or relieving associated with this chest pain. Patient was complaining of worsening shortness of breath. Patient was brought to the ER by family. In the ER, esme mckinley was found to be tachypneic, diaphoretic and tachycardic, initially patient was given trial on BiPAP but was initially intubated as he was not tolerating the BiPAP. Initial lab work done in the ER showed WBC 13.3, hemoglobin 16.3, platelet count 266, INR 1, sodium 131, potassium 4, BUN 19, creatinine 1.14, glucose 257, bilirubin 1.4, AST 26, ALT 198, alk phosphatase 170 troponin 0.088 Influenza A not detected Influenza B not detected RSV not detected COVID-19 not detected EKG done in the ER showed heart rate of 127, LA 124, QRS 82, no ST segment elevation or depression seen, no T-wave inversions seen. Chest x-ray done in the ER showed new central opacities favoring mild to moderate edema versus developing acute infiltrates. Correlate clinically CT chest done PE protocol done showed suboptimal study without central saddle pulmonary embolism, no aortic dissection. Small moderate-sized bilateral pleural effusion, bilateral multifocal groundglass opacities and consolidation seen Patient admitted to ICU 01/08. Patient seen and examined. Continues to be intubated. Currently labs are WBCs 0.1, hemoglobin 13.8, platelet count 208, sodium 137, potassium 4.5, BUN 17, creatinine 0.97 calcium is 8.2. Antibiotics were discontinued as Pro-Federico is normal. 01/09. Patient seen and examined. Patient was given spontaneous breathing trial today, patient became restless and tachypneic. Critical care did not attempt extubation today. 01/10. Patient seen and examined. Blood work done this morning showedWBC 8.4, hemoglobin 14, platelet count 203, sodium 143, potassium 4.1, BUN 31, creatinine 1.06 patient will be going to a spontaneous breathing trial again today. Currently on tube feeding 01/12/2024 Patient remains in the ICU intubated and sedated He has a PEEP of 5 and FiO2 of 30% Cristobal catheter in place Patient is on restraints for self protection Patient on IV Solu-Medrol and IV Lasix Labs and vitals look stable, creatinine 1.1 and sodium 148 01/13/2024 Patient got extubated last night and currently he is on room air fully awake and oriented, patient asked if he can be discharged, however he agrees to stay when we explained to him He feels very weak and he requires help even with feeding He denies chest pain or dyspnea He is hemodynamically stable still requiring 3 L oxygen Creatinine 0.9, sodium 145, WBC 11.5 He is on IV Lasix 40 mg daily, switch IV Solu-Medrol to prednisone 40 mg today. Also he is on lisinopril and Coreg Chest x-ray showing possible pleural effusion related to his CHF versus pneumonia. Patient with no fever or leukocytosis unlikely has pneumonia. Pulmonary team may consider bronchoscopy Objective - Vital Signs Vital signs: Vital Signs Temp 97.5 F L 01/13/24 11:47 Pulse 76 01/13/24 11:47 Resp 16 01/13/24 11:47 BP 150/78 01/13/24 11:47 Pulse Ox 95 01/13/24 11:47 FiO2 30 01/12/24 16:00 Intake & Output 01/12/24 01/13/24 01/13/24 18:59 06:59 18:59 Intake Total 487.153 500 Output Total 2410 940 1405 Balance -1922.847 -940 -905 Weight 71.7 kg 71.7 kg Intake: IV 80 0.9 80 Intake, IV Titration 90.153 Amount propofoL 1,000 mg In 90.153 Empty Bag 1 bag @ 15 MCG/ KG/MIN 6.124 mls/hr IV . [id number] [facility] Rx#:[id number] Oral 500 Tube Feeding 317 Output: Urine 2410 940 1405 Other: Voiding Method Indwelling Catheter Indwelling Catheter Indwelling Catheter - Exam -GENERAL: The patient is intubated and sedated HEENT: Pupils are round and equally reacting to light. EOMI. No scleral icterus. No conjunctival pallor. Normocephalic, atraumatic. No pharyngeal erythema. No thyromegaly. CARDIOVASCULAR: S1 and S2 present. No murmurs, rubs, or gallops. PULMONARY: Chest is clear to auscultation, no wheezing , no crackles. ABDOMEN: Soft, nontender, nondistended, normoactive bowel sounds. No palpable organomegaly. MUSCULOSKELETAL: No joint swelling or deformity. EXTREMITIES: No cyanosis, clubbing, or pedal edema. NEUROLOGICAL: Gross neurological examination did not reveal any focal deficits. SKIN: No rashes. no petechiae. - Labs CBC & Chem 7: 01/13/24 05:32 01/13/24 05:32 Labs: Abnormal Lab Results - Last 24 Hours (Table) 01/12/24 01/12/24 01/13/24 Range/Units 17:07 19:15 05:32 WBC 11.5 H (3.8-10.6) k/uL Neutrophils # 9.4 H (1.3-7.7) k/uL BUN (9-20) mg/dL Glucose (74-99) mg/dL POC Glucose (mg/dL) 198 H 129 H (70-110) mg/dL 01/13/24 01/13/24 01/13/24 Range/Units 05:32 06:00 06:07 WBC (3.8-10.6) k/uL Neutrophils # (1.3-7.7) k/uL BUN 48 H (9-20) mg/dL Glucose 117 H (74-99) mg/dL POC Glucose (mg/dL) 122 H 118 H (70-110) mg/dL 01/13/24 Range/Units 11:07 WBC (3.8-10.6) k/uL Neutrophils # (1.3-7.7) k/uL BUN (9-20) mg/dL Glucose (74-99) mg/dL POC Glucose (mg/dL) 179 H (70-110) mg/dL Microbiology - Last 24 Hours (Table) 01/08/24 01:20 Blood Culture - Final Blood 01/08/24 01:05 Blood Culture - Final Blood Assessment and Plan Assessment: Acute hypoxemic respiratory failure Acute systolic CHF exacerbation with ejection fraction 30% Acute COPD exacerbation Elevated LFTs Elevated troponin, most likely type II secondary to CHF Alcohol use disorder Plan: Continue with oxygen via nasal cannula C change IV Solu-Medrol to prednisone Continue with IV Lasix 40 mg once daily Continue with Coreg and lisinopril Pulmonary and cardiology consult Labs and medication were reviewed.. Continue same treatment. Continue with symptomatic treatment. Resume home medication. Monitor labs and vitals. DVT and GI prophylaxis. Further recommendations as per clinical course of the patient DVT prophylaxis: Subcutaneous Lovenox GI Prophylaxis: ppi Prognosis is guarded
[2024-01-13 16:12] LABS: Glucose,Whole Blood 78 mg/dL (70-110)
[2024-01-13 20:18] LABS: Glucose,Whole Blood 135 mg/dL (70-110)
[2024-01-14 06:19] LABS: Glucose,Whole Blood 118 mg/dL (70-110)
[2024-01-14 06:23] LABS: Basophils # (A) 0.1 k/uL (0-0.2); Basophils % (A) 1 %; Eosinophils % (A) 0 %; HCT 54.1 % (39.0-53.0); HGB 17.2 gm/dL (13.0-17.5); Lymphocytes # (A) 2.6 k/uL (1.0-4.8); Lymphocytes % (A) 25 %; MCHC 31.7 g/dL (31.0-37.0); MCV 94.7 fL (80.0-100.0); Mean Platelet Volume 9.2; Monocytes # (A) 0.8 k/uL (0-1.0); Monocytes % (A) 8 %; Neutrophils # (A) 6.6 k/uL (1.3-7.7); Neutrophils % (A) 64 %; Platelet Count 216 k/uL (150-450); RBC 5.71 m/uL (4.30-5.90); RDW 13.1 % (11.5-15.5); WBC 10.3 k/uL (3.8-10.6)
[2024-01-14 06:38] LABS: African American GFR (CKD) >90 (>60 ml/min/1.73 sqM); Anion Gap 6 mmol/L; Blood Urea Nitrogen 41 mg/dL (9-20); Carbon Dioxide 30 mmol/L (22-30); Chloride 106 mmol/L (98-107); Glucose 97 mg/dL (74-99); Non-African American GFR(CKD) >90 (>60 ml/min/1.73 sqM); Potassium 3.5 mmol/L (3.5-5.1); Sodium 142 mmol/L (137-145)
[2024-01-14] MEDS: predniSONE 20 MG TAB PO SCH (08:16)
[2024-01-14] MEDS: SPIRONOLACTONE 25 MG TAB PO SCH (11:24)
[2024-01-14 11:28] LABS: Glucose,Whole Blood 115 mg/dL (70-110)
--- NOTE | 2024-01-14 11:41 | P.PN ---
Subjective patient is a 63-year-old gentleman with past medically significant for COPD was brought to the ER for respiratory distress. History was taken from patient's family according to them patient has been complaining of increased cough and shortness of breath for the last day. Patient also started complaining of left- sided chest pain which is sharp, constant, nonradiating, no aggravating or relieving associated with this chest pain. Patient was complaining of worsening shortness of breath. Patient was brought to the ER by family. In the ER, esme mckinley was found to be tachypneic, diaphoretic and tachycardic, initially patient was given trial on BiPAP but was initially intubated as he was not tolerating the BiPAP. Initial lab work done in the ER showed WBC 13.3, hemoglobin 16.3, platelet count 266, INR 1, sodium 131, potassium 4, BUN 19, creatinine 1.14, glucose 257, bilirubin 1.4, AST 26, ALT 198, alk phosphatase 170 troponin 0.088 Influenza A not detected Influenza B not detected RSV not detected COVID-19 not detected EKG done in the ER showed heart rate of 127, W[place] 124, QRS 82, no ST segment elevation or depression seen, no T-wave inversions seen. Chest x-ray done in the ER showed new central opacities favoring mild to moderate edema versus developing acute infiltrates. Correlate clinically CT chest done PE protocol done showed suboptimal study without central saddle pulmonary embolism, no aortic dissection. Small moderate-sized bilateral pleural effusion, bilateral multifocal groundglass opacities and consolidation seen Patient admitted to ICU 01/08. Patient seen and examined. Continues to be intubated. Currently labs are WBCs 0.1, hemoglobin 13.8, platelet count 208, sodium 137, potassium 4.5, BUN 17, creatinine 0.97 calcium is 8.2. Antibiotics were discontinued as Pro-Federico is normal. 01/09. Patient seen and examined. Patient was given spontaneous breathing trial today, patient became restless and tachypneic. Critical care did not attempt extubation today. 01/10. Patient seen and examined. Blood work done this morning showedWBC 8.4, hemoglobin 14, platelet count 203, sodium 143, potassium 4.1, BUN 31, creatinine 1.06 patient will be going to a spontaneous breathing trial again today. Currently on tube feeding 01/12/2024 Patient remains in the ICU intubated and sedated He has a PEEP of 5 and FiO2 of 30% Cristobal catheter in place Patient is on restraints for self protection Patient on IV Solu-Medrol and IV Lasix Labs and vitals look stable, creatinine 1.1 and sodium 148 01/13/2024 Patient got extubated last night and currently he is on room air fully awake and oriented, patient asked if he can be discharged, however he agrees to stay when we explained to him He feels very weak and he requires help even with feeding He denies chest pain or dyspnea He is hemodynamically stable still requiring 3 L oxygen Creatinine 0.9, sodium 145, WBC 11.5 He is on IV Lasix 40 mg daily, switch IV Solu-Medrol to prednisone 40 mg today. Also he is on lisinopril and Coreg Chest x-ray showing possible pleural effusion related to his CHF versus pneumonia. Patient with no fever or leukocytosis unlikely has pneumonia. Pulmonary team may consider bronchoscopy 01/14/2024 Patient awake and alert. He denies chest pain or dyspnea He denies any other new complaint. He is hemodynamically stable CBC and BMP from today is unremarkable and within the reference range. Glucose control Patient currently on prednisone 40 mg, Aldactone 25 mg is also added today. IV Lasix was discontinued patient is transferred out of the ICU today Patient states that his PCP is Dr. Jonn Gonzales, he wants his service back to Dr. Gonzales. I texted Dr. Jonn Gonzales pending response Objective - Vital Signs Vital signs: Vital Signs Temp 97.4 F L 01/14/24 11:23 Pulse 69 01/14/24 11:23 Resp 16 01/14/24 11:23 BP 129/84 01/14/24 11:23 Pulse Ox 96 01/14/24 11:23 FiO2 30 01/12/24 16:00 Intake & Output 01/13/24 01/14/24 01/14/24 18:59 06:59 18:59 Intake Total 620 Output Total 1755 250 962 Balance -1135 250 965 Weight 71.7 kg 68.4 kg Intake: Oral 620 Output: Urine 1755 250 962 Other: Voiding Method Bedside Commode Bedside Commode Bedside Commode Urinal Urinal Urinal - Exam -GENERAL: The patient is intubated and sedated HEENT: Pupils are round and equally reacting to light. EOMI. No scleral icterus. No conjunctival pallor. Normocephalic, atraumatic. No pharyngeal erythema. No thyromegaly. CARDIOVASCULAR: S1 and S2 present. No murmurs, rubs, or gallops. PULMONARY: Chest is clear to auscultation, no wheezing , no crackles. ABDOMEN: Soft, nontender, nondistended, normoactive bowel sounds. No palpable or ganomegaly. MUSCULOSKELETAL: No joint swelling or deformity. EXTREMITIES: No cyanosis, clubbing, or pedal edema. NEUROLOGICAL: Gross neurological examination did not reveal any focal deficits. SKIN: No rashes. no petechiae. - Labs CBC & Chem 7: 01/14/24 05:44 01/14/24 05:44 Labs: Abnormal Lab Results - Last 24 Hours (Table) 01/13/24 01/14/24 01/14/24 Range/Units 20:18 05:44 05:44 Hct 54.1 H (39.0-53.0) % BUN 41 H (9-20) mg/dL POC Glucose (mg/dL) 135 H (70-110) mg/dL 01/14/24 01/14/24 Range/Units 06:18 11:25 Hct (39.0-53.0) % BUN (9-20) mg/dL POC Glucose (mg/dL) 118 H 115 H (70-110) mg/dL Microbiology - Last 24 Hours (Table) 01/08/24 01:20 Blood Culture - Final Blood 01/08/24 01:05 Blood Culture - Final Blood Assessment and Plan Assessment: Acute hypoxemic respiratory failure Acute systolic CHF exacerbation with ejection fraction 30% Acute COPD exacerbation Elevated LFTs Elevated troponin, most likely type II secondary to CHF Alcohol use disorder Plan: Patient to be transferred out of the ICU today to the select unit Continue with oxygen via nasal cannula change IV Solu-Medrol to prednisone Discontinue IV Lasix 40 mg once daily Continue with Coreg and lisinopril. Aldactone added Pulmonary and cardiology consult Labs and medication were reviewed.. Continue same treatment. Continue with symptomatic treatment. Resume home medication. Monitor labs and vitals. DVT and GI prophylaxis. Further recommendations as per clinical course of the patient DVT prophylaxis: Subcutaneous Lovenox GI Prophylaxis: ppi PT/OT: Requested and pending Prognosis is guarded
--- NOTE | 2024-01-14 13:25 | P.PN ---
Subjective Progress Note Date: 01/14/24 The patient is 63-year-old male who is currently admitted to the hospital with acute hypoxic respiratory failure. Cardiology was consulted for elevated troponins as well as congestive heart failure. Patient was found to have reduced ejection fraction at 30%. The patient was able to be extubated yesterd ay and is awake and alert at the time of my examination. The patient states he does not have any chest pain or chest pressure. He also denies any difficulty breathing. He reports being weak and fatigued. He does have a productive cough. He states prior to coming to the hospital he did have a cough but does not feel as though he had any chest discomfort. 01/13 Patient has been transferred to the cardiac stepdown unit. He is maintained on IV Lasix 40 mg every day. Heart rate is in the 60s, blood pressure 155/97. Discussed with patient need for cardiac catheterization and he is agreeable to have this done. Also discussed with patient need for alcohol cessation. GENERAL: Well-appearing, well-nourished and in no acute distress. NECK: Supple without JVD or thyromegaly. LUNGS: Breath sounds coarse to auscultation bilaterally. Respiration equal and unlabored. Bilateral rhonchi. HEART: Regular rate and rhythm without murmurs, rubs or gallops. S1 and S2 heard. EXTREMITIES: Normal range of motion, no edema. No clubbing or cyanosis. Peripheral pulses intact and strong. IMPRESSION: Acute hypoxic respiratory failure Acute congestive heart failure, systolic Cardiomyopathy, unspecified, EF 30% History of COPD History of EtOH abuse PLAN: Continue supportive treatment and aggressive pulmonary hygiene Continue patient on Coreg 6.25 mg twice daily, lisinopril 10 mg twice daily Add Aldactone 25 mg daily Plan for cardiac catheterization on Thursday with Dr. Lisa Crouch Alcohol cessation counseling Further recommendations to be based upon the patient's clinical course I am dictating on behalf of Dr Henry Rankin's history/physical and assessment/plan. Objective - Vital Signs Vital signs: Vital Signs Temp 97.5 F L 01/14/24 08:07 Pulse 68 01/14/24 08:57 Resp 16 01/14/24 08:07 BP 155/97 01/14/24 08:07 Pulse Ox 97 01/14/24 08:36 FiO2 30 01/12/24 16:00 Intake & Output 01/13/24 01/14/24 01/14/24 18:59 06:59 18:59 Intake Total 620 Output Total 1755 250 659 Balance -1135 250 -501 Weight 71.7 kg 68.4 kg Intake: Oral 620 Output: Urine 1755 250 375 Other: Voiding Method Bedside Commode Bedside Commode Bedside Commode Urinal Urinal Urinal - Labs CBC & Chem 7: 01/14/24 05:44 01/14/24 05:44 Labs: Abnormal Lab Results - Last 24 Hours (Table) 01/13/24 01/13/24 01/14/24 Range/Units 11:07 20:18 05:44 Hct 54.1 H (39.0-53.0) % BUN (9-20) mg/dL POC Glucose (mg/dL) 179 H 135 H (70-110) mg/dL 01/14/24 01/14/24 Range/Units 05:44 06:18 Hct (39.0-53.0) % BUN 41 H (9-20) mg/dL POC Glucose (mg/dL) 118 H (70-110) mg/dL Microbiology - Last 24 Hours (Table) 01/08/24 01:20 Blood Culture - Final Blood 01/08/24 01:05 Blood Culture - Final Blood
--- NOTE | 2024-01-14 14:14 | P.PN ---
Subjective Progress Note Date: 01/14/24 This is a 63-year-old male patient who presented to the ER just after midnight today with complaints of chest pain shortness of breath cough congestion. He had stated he had start sharp stabbing pain in the left chest progressively worsening shortness of breath. Apparently he refused to come by EMS that had been called. He came in by family car. He was noted to be davis, pale diaphoretic, tachypneic and tachycardic and severe respiratory distress. Initial trial of BiPAP and Ativan failed and the patient was intubated and placed on the mechanical ventilator. CT angio gram was suboptimal. No central saddle pulmonary embolism. Could not exclude segmental or subsegmental PE. No aortic dissection. There are small to moderate-sized bilateral pleural effusions. Bilateral multifocal glass opacities and focal consolidations. EKG revealed sinus tachycardia without significant ST or T wave abnormalities. White count 13.3. Hemoglobin 16.3. Platelets 266. Sodium 131. Potassium 4.0. Bicarb 18. BUN 19. Creatinine 1.14. Glucose 257. Magnesium 2.1. AST 226. ALT 198. Initial troponin 0.028. Then 0.088. proBNP 12,500. Viral screen was negative. He is intubated on mechanical ventilator currently on assist-control mode at a rate of 20, tidal volume 450, FiO2 40% and a PEEP of 5. Most recent arterial blood gases revealed a PaO2 of 153, pCO2 38 and a pH of 7.38. He is on propofol at 15 mcg/kg/min. Fentanyl drip at 1 mcg/kg/h. Receive ceftriaxone and azithromycin. The patient is seen today January 09, 2024 in follow-up in the intensive care unit. He remains intubated on mechanical ventilator at assist-control rate of 20, tidal volume 450, FiO2 40% and a PEEP of 5. Morning blood gases revealed a PaO2 of 89, pCO2 of 48 and a pH of 7.29. He remains on propofol at 25 mcg/kg/min. Fentanyl at 1 mcg/kg/h. He is continued on DuoNeb ventilations, Pulmicort and performing scintillations, Solu-Medrol. White count 6.1. Hemoglobin 13.8. Platelets 208. Sodium 137. Potassium 4.5. Bicarb 19. BUN 17. Creatinine 0.97. Glucose 126. Echocardiogram reveals a left ventricular systolic ejection fraction of 30%. There is global left ventricular hypokinesia. Chest x-ray reveals scattered perihilar and basilar infiltrates with small pleural effusions. Stable compared to previous. He was given 20 mg of Lasix IV push this morning. Currently in a -1.8 L balance. The patient is seen today January 10, 2024 in follow-up in the intensive care unit. He remains intubated on the mechanical ventilator with current settings of assist-control mode with a rate of 20, tidal volume 450, FiO2 30% and a PEEP of 5. Morning blood gases reveal a pO2 of 135, pCO2 43 and a pH of 7.40. He is sedated on propofol at 35 mcg/kg/min. Fentanyl at 1 mcg/kg/h. Normal saline at KVO. He is being nourished with vital HP at 20 MLS per hour with a goal of 47 mL/h. His procalcitonin was 0.07. His antibiotics were discontinued. He remains on DuoNeb ventilations, Pulmicort and Perforomist inhalations, Solu- Medrol. Lovenox for DVT prophylaxis. Sputum culture revealed no growth. Blood cultures reveal no growth thus far. White count 8.3. Hemoglobin 13.3. Platelets 190. Sodium 140. Potassium 4.4. Bicarb 23. BUN 20. Creatinine 1.03. Glucose 143. On today's evaluation of 01/11/2024, the patient remains intubated on the mechanical ventilator. The patient is post hypoxic respiratory failure due to pulmonary edema and CHF as the patient has systolic heart failure with an ejection fraction of 30%. The patient remains intubated on the mechanical ventilator. He also has history of alcoholism. He has required higher dose of sedation and the patient is currently on propofol at 35 mcg/kg/min and fentanyl at 1 mcg/kg/h. This morning, he is on assist-control mode with rate of 20, tidal volume of 450, FiO2 of 30% with a PEEP of 5. The blood gas shows a pH of 7.4 with a pCO2 of 48 and pO2 of 75. IV fluids are currently at KVO. Peak airway pressures of 27 and a static airway pressure is 16. The patient's chest x-ray still showing pulmonary edema with bilateral pleural effusion. There is also areas of patchy infiltration bilaterally. Procalcitonin level has not been elevated and the patient was treated with a course of antibiotics. I did appreciate some patchy infiltrates on the initial CAT scan of the chest that was done at time of admission. Nevertheless, the viral screen has also been negative. The patient is hemodynamically stable on no pressors. Echocardiogram showed impaired LV function. Remains on IV Lasix. No significant edema lower extremities. The white cell count of 8.4 with a hemoglobin of 14 and a platelet count of 203. The BUN is at 31 with a creatinine of 1.06 and a sodium levels at 143 with a potassium level of 4.1. The patient's overall fluid balance over the past 24 hours has been -1.6 L. The blood cultures been negative. Sputum culture has been also negative. The patient is also on enteral feeding for nutritional support and the patient is on vital HP at 30-40. On today's evaluation of 01/12/2024, the patient is being seen for a follow-up. This morning, the patient is off fentanyl and the patient is on propofol at 50 mcg/kg/min. Afebrile. Hemodynamically stable on no pressors. Remains on the mechanical ventilator on assist-control mode with rate of 22, tidal volume of 450, FiO2 of 30% with a PEEP of 5. Peak airway pressure is 23. Blood gas showed pH of 7.47 with a pCO2 of 48 and pO2 of 74. Fluid balance has been -2.1 L over the past 24 hours. Chest x-ray from today still showing bilateral pleu ral effusions. ET tube is in good location. The patient is on Glucerna at rate of 47 cc an hour. Otherwise, no other significant events overnight. The white cell count today is at 9.9 with a hemoglobin of 15.4 and a platelet count of 220. BUN is at 53 with a creatinine of 1.15. Sodium levels at 148, potassium levels at 3.9 and the chloride is 110. The patient remains on Lasix 40 mg IV every 12 hours. The patient is on Lovenox for DVT prophylaxis. The patient remains on DuoNeb nebulized treatments [id number] and IV Solu-Medrol 40 mg every 6 hours. He remains on IV Protonix. He has no shortness of breath complaining of sedation holiday and weaning parameters need to be checked in consideration for extubation today. On today's evaluation of 01/13/2024, the patient is being seen for a follow-up. The patient is awake and alert and the patient was extubated yesterday and the patient is currently on room air oxygen. No specific complaints. Communicating. He is moving all 4 extremities. Overall he is weak. Chest x- ray still showing CHF and there may be some areas of patchy pulmonary infiltrates. There is interval reduction of the amount of pleural effusion seen on earlier chest x-ray. The patient is hemodynamically stable. The patient has significant cardiomyopathy with impaired LV function. The patient is currently on Zestril 10 mg p.o. twice a day and the patient is also on chronic 6.25 mg p.o. twice a day. Remains on bronchodilators. Remains on Lasix 40 mg IV every 24 hours. The patient had labs today and the patient's white cell count is 11.5 with a hemoglobin of 16, BUN of 48 with a creatinine of 0.9 and a sodium levels at 145. Cardiac rhythm is sinus. Hemodynamically stable. No other significant issues over the past 24 hours other than this patient being weaned off the mechanical ventilator the patient has been extubated successfully. On today's evaluation 01/14/2024, the patient is doing well. No specific complaints. The patient is currently on room air oxygen with a pulse ox of 96%. No cough or sputum production or chest tightness or wheezing. The patient was taken off the diuretics and the patient is currently on Aldactone 25 mg p.o. daily. The patient will be also taken off the IV Solu-Medrol. Remains on Lovenox for DVT prophylaxis. Remains on Coreg 6.25 mg twice a day and Zestril 10 mg p.o. daily. No other significant events overnight. Awake and alert and communicating. Cardiac rhythm is sinus. No edema lower extremities. No other complaints otherwise for now. Objective - Vital Signs Vital signs: Vital Signs Temp 97.5 F L 01/14/24 08:07 Pulse 68 01/14/24 08:57 Resp 16 01/14/24 08:07 BP 155/97 01/14/24 08:07 Pulse Ox 97 01/14/24 08:36 FiO2 30 01/12/24 16:00 Intake & Output 01/13/24 01/14/24 01/14/24 18:59 06:59 18:59 Intake Total 620 Output Total 3865 489 687 Balance -1600 -250 -687 Weight 71.7 kg 68.4 kg Intake: Oral 620 Output: Urine 5267 250 687 Other: Voiding Method Bedside Commode Bedside Commode Bedside Commode Urinal Urinal Urinal - Exam GENERAL EXAM: Intubated, sedated 63-year-old male, awake and alert extubated on room air oxygen. HEAD: Normocephalic. EYES: Sluggish reaction of pupils, equal size. NOSE: Clear with pink turbinates. Neck was supple and without jugular venous distension, thyromegaly, or carotid bruits. Carotids were easily palpable bilaterally. There was no adenopathy. NECK: No masses, no JVD. CHEST: No chest wall deformity. LUNGS: Equal air entry with scattered rhonchi, crackles in the bases. CVS: S1 and S2 normal with no audible murmur, regular rhythm. ABDOMEN: No hepatosplenomegaly, normal bowel sounds, no guarding or rigidity. SPINE: No scoliosis or deformity SKIN: No rashes CENTRAL NERVOUS SYSTEM: Awake and alert and there is generalized global weakness, no focal neurological deficits. EXTREMITIES: There is no peripheral edema. No clubbing, no cyanosis. Peripheral pulses are intact. - Labs CBC & Chem 7: 01/14/24 05:44 01/14/24 05:44 Labs: Abnormal Lab Results - Last 24 Hours (Table) 01/13/24 01/13/24 01/14/24 Range/Units 11:07 20:18 05:44 Hct 54.1 H (39.0-53.0) % BUN (9-20) mg/dL POC Glucose (mg/dL) 179 H 135 H (70-110) mg/dL 01/14/24 01/14/24 Range/Units 05:44 06:18 Hct (39.0-53.0) % BUN 41 H (9-20) mg/dL POC Glucose (mg/dL) 118 H (70-110) mg/dL Microbiology - Last 24 Hours (Table) 01/08/24 01:20 Blood Culture - Final Blood 01/08/24 01:05 Blood Culture - Final Blood Assessment and Plan Plan: Acute hypoxic respiratory failure requiring intubation and mechanical ventilatory support possibly secondary to fluid volume overload. BNP 12,500. Procalcitonin was negative at 0.07. Note that the acute hypoxic respiratory fa ilure was predominantly related to CHF as the patient had interstitial edema/pulmonary edema in addition to bilateral pleural effusions. At same time, the patient had patchy bilateral pulmonary filtrates which could potentially reflect infection. Procalcitonin level has been low. Viral screen has been negative. The patient was extubated on 01/13/2024 and the patient is currently on room air oxygen. bilateral pleural effusions secondary to CHF, will need to follow. Improved with diuretics. 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 The patient has global hypokinesis, currently on Coreg and Zestril Troponin leak, secondary to above Chronic alcohol abuse drinking approximately 8-12 beers daily, currently sedated with propofol and fentany has been discontinued Transaminitis, secondary to above History of chronic tobacco dependence Mild hypochloremic hyponatremia related to diuresis Plan: Patient remains on room air oxygen Provide diet Lasix has been discontinued the patient is currently on Aldactone Monitor fluid balance Repeat chest x-ray in a.m. Prednisone burst taper Continue metoprolol and Zestril. Coreg 6.25 mg p.o. mg twice a day and Zestril 10 mg p.o. twice daily daily. Lovenox for DVT prophylaxis Physical therapy We will continue to follow and will make further recommendations based on the progress.
[2024-01-14 16:20] LABS: Glucose,Whole Blood 133 mg/dL (70-110)
[2024-01-14 20:00] LABS: Glucose,Whole Blood 123 mg/dL (70-110)
[2024-01-15 06:08] LABS: Glucose,Whole Blood 90 mg/dL (70-110)
--- NOTE | 2024-01-15 07:59 | XR ---
EXAMINATION TYPE: XR chest 1V DATE OF EXAM: 01/15/2024 COMPARISON: 01/13/2024 HISTORY: Pleural effusion follow-up. TECHNIQUE: Single frontal view of the chest is obtained. FINDINGS: There is no focal air space opacity, pleural effusion, or pneumothorax seen. The cardiac silhouette size is within normal limits. The osseous structures are intact. Underlying emphysematou s changes. IMPRESSION: No acute process. No sizable pleural effusion on today's exam.
[2024-01-15 11:32] LABS: Glucose,Whole Blood 156 mg/dL (70-110)
[2024-01-15] MEDS ORDERED: NITROGLYCERIN SL TABS 0.4 MG TAB SUBLINGUAL PRN (12:23)
[2024-01-15] MEDS ORDERED: ALPRAZolam 0.25 MG TAB PO PRN (12:23)
--- NOTE | 2024-01-15 12:29 | P.PN ---
Subjective Progress Note Date: 01/15/24 The patient is 63-year-old male who is currently admitted to the hospital with acute hypoxic respiratory failure. Cardiology was consulted for elevated troponins as well as congestive heart failure. Patient was found to have reduced ejection fraction at 30%. The patient was able to be extubated yesterd ay and is awake and alert at the time of my examination. The patient states he does not have any chest pain or chest pressure. He also denies any difficulty breathing. He reports being weak and fatigued. He does have a productive cough. Patient will require cardiac catheterization prior to his discharge which is going to be scheduled for Thursday with Dr. Lisa Crouch. Heart rate is in the 60s and 70s, blood pressure 117/74, pulse ox 97% on room air. GENERAL: Well-appearing, well-nourished and in no acute distress. NECK: Supple without JVD or thyromegaly. LUNGS: Breath sounds coarse to auscultation bilaterally. Respiration equal and unlabored. Bilateral rhonchi. HEART: Regular rate and rhythm without murmurs, rubs or gallops. S1 and S2 heard. EXTREMITIES: Normal range of motion, no edema. No clubbing or cyanosis. Peripheral pulses intact and strong. IMPRESSION: Acute hypoxic respiratory failure Acute congestive heart failure, systolic Cardiomyopathy, unspecified, EF 30% History of COPD History of EtOH abuse PLAN: Continue supportive treatment and aggressive pulmonary hygiene Continue patient on Coreg 6.25 mg twice daily, lisinopril 10 mg twice daily, Aldactone 25 mg daily Plan for cardiac catheterization on Thursday with Dr. Lisa Crouch Alcohol cessation counseling Further recommendations to be based upon the patient's clinical course I am dictating on behalf of Dr Henry Rankin's history/physical and assessment/plan. Objective - Vital Signs Vital signs: Vital Signs Temp 97.5 F L 01/15/24 07:49 Pulse 72 01/15/24 09:12 Resp 16 01/15/24 07:49 BP 117/74 01/15/24 07:49 Pulse Ox 97 01/15/24 09:00 FiO2 30 01/12/24 16:00 Intake & Output 01/14/24 01/15/24 01/15/24 18:59 06:59 18:59 Intake Total 360 10 190 Output Total 1169 200 Balance -809 -190 190 Intake: IV 10 10 Invasive Line 4 10 10 Oral 360 180 Output: Urine 1169 200 Other: Voiding Method Bedside Commode Toilet Toilet Urinal Urinal Urinal # Voids 1 # Bowel Movements 1 - Labs CBC & Chem 7: 01/14/24 05:44 01/14/24 05:44 Labs: Abnormal Lab Results - Last 24 Hours (Table) 01/14/24 01/14/24 01/14/24 Range/Units 11:25 16:18 19:59 POC Glucose (mg/dL) 115 H 133 H 123 H (70-110) mg/dL
--- NOTE | 2024-01-15 14:52 | P.PN ---
Subjective Progress Note Date: 01/15/24 This is a 63-year-old male patient who presented to the ER just after midnight today with complaints of chest pain shortness of breath cough congestion. He had stated he had start sharp stabbing pain in the left chest progressively worsening shortness of breath. Apparently he refused to come by EMS that had been called. He came in by family car. He was noted to be davis, pale diaphoretic, tachypneic and tachycardic and severe respiratory distress. Initial trial of BiPAP and Ativan failed and the patient was intubated and placed on the mechanical ventilator. CT angio gram was suboptimal. No central saddle pulmonary embolism. Could not exclude segmental or subsegmental PE. No aortic dissection. There are small to moderate-sized bilateral pleural effusions. Bilateral multifocal glass opacities and focal consolidations. EKG revealed sinus tachycardia without significant ST or T wave abnormalities. White count 13.3. Hemoglobin 16.3. Platelets 266. Sodium 131. Potassium 4.0. Bicarb 18. BUN 19. Creatinine 1.14. Glucose 257. Magnesium 2.1. AST 226. ALT 198. Initial troponin 0.028. Then 0.088. proBNP 12,500. Viral screen was negative. He is intubated on mechanical ventilator currently on assist-control mode at a rate of 20, tidal volume 450, FiO2 40% and a PEEP of 5. Most recent arterial blood gases revealed a PaO2 of 153, pCO2 38 and a pH of 7.38. He is on propofol at 15 mcg/kg/min. Fentanyl drip at 1 mcg/kg/h. Receive ceftriaxone and azithromycin. The patient is seen today January 09, 2024 in follow-up in the intensive care unit. He remains intubated on mechanical ventilator at assist-control rate of 20, tidal volume 450, FiO2 40% and a PEEP of 5. Morning blood gases revealed a PaO2 of 89, pCO2 of 48 and a pH of 7.29. He remains on propofol at 25 mcg/kg/min. Fentanyl at 1 mcg/kg/h. He is continued on DuoNeb ventilations, Pulmicort and performing scintillations, Solu-Medrol. White count 6.1. Hemoglobin 13.8. Platelets 208. Sodium 137. Potassium 4.5. Bicarb 19. BUN 17. Creatinine 0.97. Glucose 126. Echocardiogram reveals a left ventricular systolic ejection fraction of 30%. There is global left ventricular hypokinesia. Chest x-ray reveals scattered perihilar and basilar infiltrates with small pleural effusions. Stable compared to previous. He was given 20 mg of Lasix IV push this morning. Currently in a -1.8 L balance. The patient is seen today January 10, 2024 in follow-up in the intensive care unit. He remains intubated on the mechanical ventilator with current settings of assist-control mode with a rate of 20, tidal volume 450, FiO2 30% and a PEEP of 5. Morning blood gases reveal a pO2 of 135, pCO2 43 and a pH of 7.40. He is sedated on propofol at 35 mcg/kg/min. Fentanyl at 1 mcg/kg/h. Normal saline at KVO. He is being nourished with vital HP at 20 MLS per hour with a goal of 47 mL/h. His procalcitonin was 0.07. His antibiotics were discontinued. He remains on DuoNeb ventilations, Pulmicort and Perforomist inhalations, Solu- Medrol. Lovenox for DVT prophylaxis. Sputum culture revealed no growth. Blood cultures reveal no growth thus far. White count 8.3. Hemoglobin 13.3. Platelets 190. Sodium 140. Potassium 4.4. Bicarb 23. BUN 20. Creatinine 1.03. Glucose 143. On today's evaluation of 01/11/2024, the patient remains intubated on the mechanical ventilator. The patient is post hypoxic respiratory failure due to pulmonary edema and CHF as the patient has systolic heart failure with an ejection fraction of 30%. The patient remains intubated on the mechanical ventilator. He also has history of alcoholism. He has required higher dose of sedation and the patient is currently on propofol at 35 mcg/kg/min and fentanyl at 1 mcg/kg/h. This morning, he is on assist-control mode with rate of 20, tidal volume of 450, FiO2 of 30% with a PEEP of 5. The blood gas shows a pH of 7.4 with a pCO2 of 48 and pO2 of 75. IV fluids are currently at KVO. Peak airway pressures of 27 and a static airway pressure is 16. The patient's chest x-ray still showing pulmonary edema with bilateral pleural effusion. There is also areas of patchy infiltration bilaterally. Procalcitonin level has not been elevated and the patient was treated with a course of antibiotics. I did appreciate some patchy infiltrates on the initial CAT scan of the chest that was done at time of admission. Nevertheless, the viral screen has also been negative. The patient is hemodynamically stable on no pressors. Echocardiogram showed impaired LV function. Remains on IV Lasix. No significant edema lower extremities. The white cell count of 8.4 with a hemoglobin of 14 and a platelet count of 203. The BUN is at 31 with a creatinine of 1.06 and a sodium levels at 143 with a potassium level of 4.1. The patient's overall fluid balance over the past 24 hours has been -1.6 L. The blood cultures been negative. Sputum culture has been also negative. The patient is also on enteral feeding for nutritional support and the patient is on vital HP at 30-40. On today's evaluation of 01/12/2024, the patient is being seen for a follow-up. This morning, the patient is off fentanyl and the patient is on propofol at 50 mcg/kg/min. Afebrile. Hemodynamically stable on no pressors. Remains on the mechanical ventilator on assist-control mode with rate of 22, tidal volume of 450, FiO2 of 30% with a PEEP of 5. Peak airway pressure is 23. Blood gas showed pH of 7.47 with a pCO2 of 48 and pO2 of 74. Fluid balance has been -2.1 L over the past 24 hours. Chest x-ray from today still showing bilateral pleu ral effusions. ET tube is in good location. The patient is on Glucerna at rate of 47 cc an hour. Otherwise, no other significant events overnight. The white cell count today is at 9.9 with a hemoglobin of 15.4 and a platelet count of 220. BUN is at 53 with a creatinine of 1.15. Sodium levels at 148, potassium levels at 3.9 and the chloride is 110. The patient remains on Lasix 40 mg IV every 12 hours. The patient is on Lovenox for DVT prophylaxis. The patient remains on DuoNeb nebulized treatments [id number] and IV Solu-Medrol 40 mg every 6 hours. He remains on IV Protonix. He has no shortness of breath complaining of sedation holiday and weaning parameters need to be checked in consideration for extubation today. On today's evaluation of 01/13/2024, the patient is being seen for a follow-up. The patient is awake and alert and the patient was extubated yesterday and the patient is currently on room air oxygen. No specific complaints. Communicating. He is moving all 4 extremities. Overall he is weak. Chest x- ray still showing CHF and there may be some areas of patchy pulmonary infiltrates. There is interval reduction of the amount of pleural effusion seen on earlier chest x-ray. The patient is hemodynamically stable. The patient has significant cardiomyopathy with impaired LV function. The patient is currently on Zestril 10 mg p.o. twice a day and the patient is also on chronic 6.25 mg p.o. twice a day. Remains on bronchodilators. Remains on Lasix 40 mg IV every 24 hours. The patient had labs today and the patient's white cell count is 11.5 with a hemoglobin of 16, BUN of 48 with a creatinine of 0.9 and a sodium levels at 145. Cardiac rhythm is sinus. Hemodynamically stable. No other significant issues over the past 24 hours other than this patient being weaned off the mechanical ventilator the patient has been extubated successfully. On today's evaluation 01/14/2024, the patient is doing well. No specific complaints. The patient is currently on room air oxygen with a pulse ox of 96%. No cough or sputum production or chest tightness or wheezing. The patient was taken off the diuretics and the patient is currently on Aldactone 25 mg p.o. daily. The patient will be also taken off the IV Solu-Medrol. Remains on Lovenox for DVT prophylaxis. Remains on Coreg 6.25 mg twice a day and Zestril 10 mg p.o. daily. No other significant events overnight. Awake and alert and communicating. Cardiac rhythm is sinus. No edema lower extremities. No other complaints otherwise for now. On today's evaluation of 01/15/2024, the patient is being seen for a follow-up. The patient is calm and comfortable and denies having any respiratory distress. The patient has been on room air oxygen. Repeat chest x-ray was done and the patient was found to have no significant pleural effusion and the pulm edema is essentially covered. As mentioned, the patient has impaired LV function with an ejection fraction of 30%. He is currently on a combination of Coreg 6.25 mg twice a day, lisinopril 10 mg twice a day and Aldactone 25 mg p.o. daily. The plan is to do a cardiac catheterization early next week. Otherwise, no other significant events overnight. The patient is doing extremely well for now. Objective - Vital Signs Vital signs: Vital Signs Temp 97.5 F L 01/15/24 07:49 Pulse 70 01/15/24 09:26 Resp 16 01/15/24 08:19 BP 117/74 01/15/24 07:49 Pulse Ox 97 01/15/24 09:00 FiO2 30 01/12/24 16:00 Intake & Output 01/14/24 01/15/24 01/15/24 18:59 06:59 18:59 Intake Total 360 10 190 Output Total 1169 200 Balance -809 -190 190 Intake: IV 10 10 Invasive Line 4 10 10 Oral 360 180 Output: Urine 1169 200 Other: Voiding Method Bedside Commode Toilet Toilet Urinal Urinal Urinal # Voids 1 # Bowel Movements 1 - Exam GENERAL EXAM: Intubated, sedated 63-year-old male, awake and alert extubated on room air oxygen. HEAD: Normocephalic. EYES: Sluggish reaction of pupils, equal size. NOSE: Clear with pink turbinates. Neck was supple and without jugular venous distension, thyromegaly, or carotid bruits. Carotids were easily palpable bilaterally. There was no adenopathy. NECK: No masses, no JVD. CHEST: No chest wall deformity. LUNGS: Equal air entry with scattered rhonchi, crackles in the bases. CVS: S1 and S2 normal with no audible murmur, regular rhythm. ABDOMEN: No hepatosplenomegaly, normal bowel sounds, no guarding or rigidity. SPINE: No scoliosis or deformity SKIN: No rashes CENTRAL NERVOUS SYSTEM: Awake and alert and there is generalized global weakness, no focal neurological deficits. EXTREMITIES: There is no peripheral edema. No clubbing, no cyanosis. Peripheral pulses are intact. - Labs CBC & Chem 7: 01/14/24 05:44 01/14/24 05:44 Labs: Abnormal Lab Results - Last 24 Hours (Table) 01/14/24 01/14/24 01/14/24 Range/Units 11:25 16:18 19:59 POC Glucose (mg/dL) 115 H 133 H 123 H (70-110) mg/dL Assessment and Plan Plan: Acute hypoxic respiratory failure requiring intubation and mechanical ventilatory support possibly secondary to fluid volume overload. BNP 12,500. Procalcitonin was negative at 0.07. Note that the acute hypoxic respiratory failure was predominantly related to CHF as the patient had interstitial edema/pulmonary edema in addition to bilateral pleural effusions. At same time, the patient had patchy bilateral pulmonary filtrates which could potentially reflect infection. Procalcitonin level has been low. Viral screen has been negative. The patient was extubated on 01/13/2024 and the patient is currently on room air oxygen. The patient is currently on room air oxygen. Chest x-ray shows resolution of the pulmonary edema. 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 The patient has global hypokinesis, currently on Coreg and Zestril and Aldactone. Troponin leak, secondary to above Chronic alcohol abuse drinking approximately 8-12 beers daily, currently sedated with propofol and fentany has been discontinued Transaminitis, secondary to above History of chronic tobacco dependence Mild hypochloremic hyponatremia related to diuresis Plan: Patient remains on room air oxygen Chest x-ray showing resolution of the previously described pleural effusions. Lasix has been discontinued the patient is currently on Aldactone Continue Coreg 6.25 mg p.o. twice a day Zestril 10 mg p.o. daily Aldactone 25 mg p.o. daily Prednisone burst taper Continue metoprolol and Zestril. Coreg 6.25 mg p.o. mg twice a day and Zestril 10 mg p.o. twice daily daily. Lovenox for DVT prophylaxis Physical therapy increase mobility Cardiac catheterization early next week by Dr. Otero
--- NOTE | 2024-01-15 16:23 | CDI ---
Documentation Clarification Form Date: 01/15/2024 04:00:35 PM From: Lisa Santizo RN, CCDS Phone: [phone] Admit Date: 01/08/2024 02:06:00 AM Patient Name: Bk Patel Visit Number: [id number] Discharge Date: ATTENTION: The Clinical Documentation Specialists (CDI) and [facility] Coding Staff appreciate your assistance in clarifying documentation. Please respond to the clarification below the line at the bottom and electronically sign. The CDI & [facility] Coding staff will review the response and follow-up if needed. Please note: Queries are made part of the Legal Health Record. If you have any questions, please contact the author of this message via ITS. Dr. Jonn Gonzales There is documentation of elevated troponin, most likely type II secondary to CHF]. Additional clarification is requested. History/Risk Factors: Chest Pain / Angina, COPD, Diabetes Mellitus, Hypertension Clinical Indicators: 63-year-old male brought to the ER today in acute respiratory distress left chest and progressively worsening shortness of breath. VS: 205/137 125 20 86% RA 92 on 15% NRB Labs: 13.3 Troponin 0.028, 0.088 0.056 01/08 CXR: Scattered perihilar and basilar infiltrates and small effusions persist. Stable 01/10 CXR: CHF stable in appearance Treatment: Cardiac/Telemetry Monitoring Lasix 40MG IV ONCE 01/07, 20 MG IV 01/08, Lasix 20 MG IV Q12 01/09-01/10 40 MG IV 01/10-01/11 Lasix 40 MG IV Daily 01/11-01/13 Coreg 6.25 MG PO BID 01/11-01/14 Lopressor 25 MG PO BID 01/09-01/11 Can you please further clarify type II ? [ ] Type II RI secondary to CHF [ ] Other, please specify [ ] Unable to determine (Template Last Revised: December 2020) MTDD
[2024-01-15 16:36] LABS: Glucose,Whole Blood 156 mg/dL (70-110)
[2024-01-15] MEDS: DAPAGLIFLOZIN PROPANEDIOL 5 MG TABLET PO SCH (17:57)
[2024-01-15 20:01] LABS: Glucose,Whole Blood 116 mg/dL (70-110)
[2024-01-16 05:55] LABS: Glucose,Whole Blood 100 mg/dL (70-110)
[2024-01-16] MEDS ORDERED: HEPARIN SODIUM,PORCINE 10,000 UNIT in SODIUM CHLORIDE 0.9% 1,000 ML IRRIGATION PRN (07:00)
[2024-01-16] MEDS ORDERED: HEPARIN SODIUM,PORCINE (1 ML) 2,500 UNIT in SODIUM CHLORIDE 0.9% 250 ML IRRIGATION PRN (07:00)
[2024-01-16 11:21] LABS: Glucose,Whole Blood 92 mg/dL (70-110)
--- NOTE | 2024-01-16 14:56 | P.PN ---
Subjective Progress Note Date: 01/16/24 This is a 63-year-old male patient who presented to the ER just after midnight today with complaints of chest pain shortness of breath cough congestion. He had stated he had start sharp stabbing pain in the left chest progressively worsening shortness of breath. Apparently he refused to come by EMS that had been called. He came in by family car. He was noted to be davis, pale diaphoretic, tachypneic and tachycardic and severe respiratory distress. Initial trial of BiPAP and Ativan failed and the patient was intubated and placed on the mechanical ventilator. CT angio gram was suboptimal. No central saddle pulmonary embolism. Could not exclude segmental or subsegmental PE. No aortic dissection. There are small to moderate-sized bilateral pleural effusions. Bilateral multifocal glass opacities and focal consolidations. EKG revealed sinus tachycardia without significant ST or T wave abnormalities. White count 13.3. Hemoglobin 16.3. Platelets 266. Sodium 131. Potassium 4.0. Bicarb 18. BUN 19. Creatinine 1.14. Glucose 257. Magnesium 2.1. AST 226. ALT 198. Initial troponin 0.028. Then 0.088. proBNP 12,500. Viral screen was negative. He is intubated on mechanical ventilator currently on assist-control mode at a rate of 20, tidal volume 450, FiO2 40% and a PEEP of 5. Most recent arterial blood gases revealed a PaO2 of 153, pCO2 38 and a pH of 7.38. He is on propofol at 15 mcg/kg/min. Fentanyl drip at 1 mcg/kg/h. Receive ceftriaxone and azithromycin. The patient is seen today January 09, 2024 in follow-up in the intensive care unit. He remains intubated on mechanical ventilator at assist-control rate of 20, tidal volume 450, FiO2 40% and a PEEP of 5. Morning blood gases revealed a PaO2 of 89, pCO2 of 48 and a pH of 7.29. He remains on propofol at 25 mcg/kg/min. Fentanyl at 1 mcg/kg/h. He is continued on DuoNeb ventilations, Pulmicort and performing scintillations, Solu-Medrol. White count 6.1. Hemoglobin 13.8. Platelets 208. Sodium 137. Potassium 4.5. Bicarb 19. BUN 17. Creatinine 0.97. Glucose 126. Echocardiogram reveals a left ventricular systolic ejection fraction of 30%. There is global left ventricular hypokinesia. Chest x-ray reveals scattered perihilar and basilar infiltrates with small pleural effusions. Stable compared to previous. He was given 20 mg of Lasix IV push this morning. Currently in a -1.8 L balance. The patient is seen today January 10, 2024 in follow-up in the intensive care unit. He remains intubated on the mechanical ventilator with current settings of assist-control mode with a rate of 20, tidal volume 450, FiO2 30% and a PEEP of 5. Morning blood gases reveal a pO2 of 135, pCO2 43 and a pH of 7.40. He is sedated on propofol at 35 mcg/kg/min. Fentanyl at 1 mcg/kg/h. Normal saline at KVO. He is being nourished with vital HP at 20 MLS per hour with a goal of 47 mL/h. His procalcitonin was 0.07. His antibiotics were discontinued. He remains on DuoNeb ventilations, Pulmicort and Perforomist inhalations, Solu- Medrol. Lovenox for DVT prophylaxis. Sputum culture revealed no growth. Blood cultures reveal no growth thus far. White count 8.3. Hemoglobin 13.3. Platelets 190. Sodium 140. Potassium 4.4. Bicarb 23. BUN 20. Creatinine 1.03. Glucose 143. On today's evaluation of 01/11/2024, the patient remains intubated on the mechanical ventilator. The patient is post hypoxic respiratory failure due to pulmonary edema and CHF as the patient has systolic heart failure with an ejection fraction of 30%. The patient remains intubated on the mechanical ventilator. He also has history of alcoholism. He has required higher dose of sedation and the patient is currently on propofol at 35 mcg/kg/min and fentanyl at 1 mcg/kg/h. This morning, he is on assist-control mode with rate of 20, tidal volume of 450, FiO2 of 30% with a PEEP of 5. The blood gas shows a pH of 7.4 with a pCO2 of 48 and pO2 of 75. IV fluids are currently at KVO. Peak airway pressures of 27 and a static airway pressure is 16. The patient's chest x-ray still showing pulmonary edema with bilateral pleural effusion. There is also areas of patchy infiltration bilaterally. Procalcitonin level has not been elevated and the patient was treated with a course of antibiotics. I did appreciate some patchy infiltrates on the initial CAT scan of the chest that was done at time of admission. Nevertheless, the viral screen has also been negative. The patient is hemodynamically stable on no pressors. Echocardiogram showed impaired LV function. Remains on IV Lasix. No significant edema lower extremities. The white cell count of 8.4 with a hemoglobin of 14 and a platelet count of 203. The BUN is at 31 with a creatinine of 1.06 and a sodium levels at 143 with a potassium level of 4.1. The patient's overall fluid balance over the past 24 hours has been -1.6 L. The blood cultures been negative. Sputum culture has been also negative. The patient is also on enteral feeding for nutritional support and the patient is on vital HP at 30-40. On today's evaluation of 01/12/2024, the patient is being seen for a follow-up. This morning, the patient is off fentanyl and the patient is on propofol at 50 mcg/kg/min. Afebrile. Hemodynamically stable on no pressors. Remains on the mechanical ventilator on assist-control mode with rate of 22, tidal volume of 450, FiO2 of 30% with a PEEP of 5. Peak airway pressure is 23. Blood gas showed pH of 7.47 with a pCO2 of 48 and pO2 of 74. Fluid balance has been -2.1 L over the past 24 hours. Chest x-ray from today still showing bilateral pleu ral effusions. ET tube is in good location. The patient is on Glucerna at rate of 47 cc an hour. Otherwise, no other significant events overnight. The white cell count today is at 9.9 with a hemoglobin of 15.4 and a platelet count of 220. BUN is at 53 with a creatinine of 1.15. Sodium levels at 148, potassium levels at 3.9 and the chloride is 110. The patient remains on Lasix 40 mg IV every 12 hours. The patient is on Lovenox for DVT prophylaxis. The patient remains on DuoNeb nebulized treatments [id number] and IV Solu-Medrol 40 mg every 6 hours. He remains on IV Protonix. He has no shortness of breath complaining of sedation holiday and weaning parameters need to be checked in consideration for extubation today. On today's evaluation of 01/13/2024, the patient is being seen for a follow-up. The patient is awake and alert and the patient was extubated yesterday and the patient is currently on room air oxygen. No specific complaints. Communicating. He is moving all 4 extremities. Overall he is weak. Chest x- ray still showing CHF and there may be some areas of patchy pulmonary infiltrates. There is interval reduction of the amount of pleural effusion seen on earlier chest x-ray. The patient is hemodynamically stable. The patient has significant cardiomyopathy with impaired LV function. The patient is currently on Zestril 10 mg p.o. twice a day and the patient is also on chronic 6.25 mg p.o. twice a day. Remains on bronchodilators. Remains on Lasix 40 mg IV every 24 hours. The patient had labs today and the patient's white cell count is 11.5 with a hemoglobin of 16, BUN of 48 with a creatinine of 0.9 and a sodium levels at 145. Cardiac rhythm is sinus. Hemodynamically stable. No other significant issues over the past 24 hours other than this patient being weaned off the mechanical ventilator the patient has been extubated successfully. On today's evaluation 01/14/2024, the patient is doing well. No specific complaints. The patient is currently on room air oxygen with a pulse ox of 96%. No cough or sputum production or chest tightness or wheezing. The patient was taken off the diuretics and the patient is currently on Aldactone 25 mg p.o. daily. The patient will be also taken off the IV Solu-Medrol. Remains on Lovenox for DVT prophylaxis. Remains on Coreg 6.25 mg twice a day and Zestril 10 mg p.o. daily. No other significant events overnight. Awake and alert and communicating. Cardiac rhythm is sinus. No edema lower extremities. No other complaints otherwise for now. On today's evaluation of 01/15/2024, the patient is being seen for a follow-up. The patient is calm and comfortable and denies having any respiratory distress. The patient has been on room air oxygen. Repeat chest x-ray was done and the patient was found to have no significant pleural effusion and the pulm edema is essentially covered. As mentioned, the patient has impaired LV function with an ejection fraction of 30%. He is currently on a combination of Coreg 6.25 mg twice a day, lisinopril 10 mg twice a day and Aldactone 25 mg p.o. daily. The plan is to do a cardiac catheterization early next week. Otherwise, no other significant events overnight. The patient is doing extremely well for now. On today's evaluation of 01/16/2024, the patient is on room air oxygen. The patient is ambulating. No significant respiratory distress. The patient has no cough or sputum production or chest tightness or wheezing. The patient is com pleting a prednisone burst taper. In regards to his CHF, the patient is on chronic 6.25 mg twice a day and Aldactone 25 mg p.o. daily and lisinopril 10 mg p.o. daily. He is also on high-dose statin. Remains on aspirin. Awaiting further recommendations from cardiology. Plan is to do a cardiac ca theterization on Thursday. Objective - Vital Signs Vital signs: Vital Signs Temp 97.8 F 01/16/24 07:55 Pulse 64 01/16/24 08:48 Resp 16 01/16/24 07:55 BP 146/83 01/16/24 07:55 Pulse Ox 99 01/16/24 08:29 FiO2 30 01/12/24 16:00 Intake & Output 01/15/24 01/16/24 01/16/24 18:59 06:59 18:59 Intake Total 560 10 128 Balance 560 10 128 Intake: IV 20 10 10 Invasive Line 4 20 10 10 Oral 540 118 Other: Voiding Method Toilet Toilet Toilet Urinal Urinal # Voids 1 1 # Bowel Movements 1 1 - Exam GENERAL EXAM: Intubated, sedated 63-year-old male, awake and alert extubated on room air oxygen. HEAD: Normocephalic. EYES: Sluggish reaction of pupils, equal size. NOSE: Clear with pink turbinates. Neck was supple and without jugular venous distension, thyromegaly, or carotid bruits. Carotids were easily palpable bilaterally. There was no adenopathy. NECK: No masses, no JVD. CHEST: No chest wall deformity. LUNGS: Equal air entry with scattered rhonchi, crackles in the bases. CVS: S1 and S2 normal with no audible murmur, regular rhythm. ABDOMEN: No hepatosplenomegaly, normal bowel sounds, no guarding or rigidity. SPINE: No scoliosis or deformity SKIN: No rashes CENTRAL NERVOUS SYSTEM: Awake and alert and there is generalized global weakness, no focal neurological deficits. EXTREMITIES: There is no peripheral edema. No clubbing, no cyanosis. Peripheral pulses are intact. - Labs CBC & Chem 7: 01/14/24 05:44 01/14/24 05:44 Labs: Abnormal Lab Results - Last 24 Hours (Table) 01/15/24 01/15/24 01/15/24 Range/Units 11:30 16:33 19:57 POC Glucose (mg/dL) 156 H 156 H 116 H (70-110) mg/dL Assessment and Plan Plan: Acute hypoxic respiratory failure requiring intubation and mechanical ventilatory support possibly secondary to fluid volume overload. BNP 12,500. Procalcitonin was negative at 0.07. Note that the acute hypoxic respiratory failure was predominantly related to CHF as the patient had interstitial edema/pulmonary edema in addition to bilateral pleural effusions. At same time, the patient had patchy bilateral pulmonary filtrates which could potentially reflect infection. Procalcitonin level has been low. Viral screen has been negative. The patient was extubated on 01/13/2024 and the patient is currently on room air oxygen. The patient is currently on room air oxygen. Chest x-ray shows resolution of the pulmonary edema. 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 The patient has global hypokinesis, currently on The patient is currently on Coreg 6.25 mg twice a day, lisinopril 10 mg p.o. daily, Aldactone 25 mg p.o. daily and Farxiga 5 mg p.o. daily Troponin leak, secondary to above Chronic alcohol abuse drinking approximately 8-12 beers daily, currently sedated with propofol and fentany has been discontinued Transaminitis, secondary to above History of chronic tobacco dependence Mild hypochloremic hyponatremia related to diuresis Plan: Patient remains on room air oxygen Chest x-ray showing resolution of the previously described pleural effusions. Lasix has been discontinued the patient is currently on Aldactone Continue Coreg 6.25 mg p.o. twice a day Zestril 10 mg p.o. daily Aldactone 25 mg p.o. daily Farxiga 5 mg p.o. daily Prednisone burst taper Lovenox for DVT prophylaxis Physical therapy increase mobility Cardiac catheterization early next week by Dr. Otero
--- NOTE | 2024-01-16 15:24 | PN ---
PROGRESS NOTE secondary to CHF and pneumonia. MMODL / IJN: [id number] /
--- NOTE | 2024-01-16 16:09 | PN ---
PROGRESS NOTE DATE OF SERVICE: 01/15/2024 SUBJECTIVE: A 63-year-old white male status post ventilator for pneumonia, COPD, congestive heart failure. He was taken off the vent 2 days ago. He wants to go home. Cardiology does not want him to go until Thursday. I discussed this with the patient. He is due to get a heart catheterization on Thursday and then after that maybe go home if there is no blockage found. He saturated in the mid 90s on room air. OBJECTIVE: CARDIOVASCULAR: S1, S2. LUNGS: Scattered wheeze and rhonchi. VITAL SIGNS: Blood pressure 140s/60s, sitting up, giving appropriate answers. LUNGS: Scattered wheezes. CARDIOVASCULAR: S1, S2. GI: Soft. HEMATOLOGY: Negative Homans. ASSESSMENT: Acute on chronic respiratory failure, status post ventilator for chronic obstructive pulmonary disease, pneumonia, systolic heart failure. He has a longstanding history of alcohol and nicotine addiction for the last 2 years after his . He said he is done with smoking and drinking . He wants no antidepressants, etc. Prognosis is guarded. Continue current treatments. Heart catheterization on Thursday. MMODL / IJN: [id number] /
[2024-01-16 17:09] LABS: Glucose,Whole Blood 94 mg/dL (70-110)
[2024-01-16 19:49] LABS: Glucose,Whole Blood 114 mg/dL (70-110)
[2024-01-16] MEDS: ALPRAZolam 0.5 MG TAB PO PRN (21:32)
[2024-01-17 06:10] LABS: Glucose,Whole Blood 87 mg/dL (70-110)
--- NOTE | 2024-01-17 09:33 | P.PN ---
Subjective Progress Note Date: 01/17/24 The patient is 63-year-old male who is currently admitted to the hospital with acute hypoxic respiratory failure. Cardiology was consulted for elevated troponins as well as congestive heart failure. Patient was found to have reduced ejection fraction at 30%. The patient was able to be extubated yesterd ay and is awake and alert at the time of my examination. The patient states he does not have any chest pain or chest pressure. He also denies any difficulty breathing. He does have occasional productive cough. Patient will require cardiac catheterization prior to his discharge which is scheduled for Thursday with Dr. Lisa Crouch. Heart rate is in the 60s and 70s, blood pressure 117/63, pulse ox 98% on room air. GENERAL: Well-appearing, well-nourished and in no acute distress. NECK: Supple without JVD or thyromegaly. LUNGS: Breath sounds coarse to auscultation bilaterally. Respiration equal and unlabored. Bilateral rhonchi. HEART: Regular rate and rhythm without murmurs, rubs or gallops. S1 and S2 heard. EXTREMITIES: Normal range of motion, no edema. No clubbing or cyanosis. Peripheral pulses intact and strong. IMPRESSION: Acute hypoxic respiratory failure Acute congestive heart failure, systolic Cardiomyopathy, unspecified, EF 30% History of COPD History of EtOH abuse PLAN: Continue supportive treatment and aggressive pulmonary hygiene Continue patient on Coreg 6.25 mg twice daily, lisinopril 10 mg twice daily, Aldactone 25 mg daily Plan for cardiac catheterization on Thursday with Dr. Lisa Crouch Alcohol cessation counseling Further recommendations to be based upon the patient's clinical course I am dictating on behalf of Dr Henry Rankin's history/physical and assessment/p tommy. Objective - Vital Signs Vital signs: Vital Signs Temp 98.1 F 01/17/24 04:56 Pulse 65 01/17/24 08:39 Resp 16 01/17/24 08:39 BP 117/63 01/17/24 08:39 Pulse Ox 98 01/17/24 08:39 FiO2 30 01/12/24 16:00 Intake & Output 01/16/24 01/17/24 01/17/24 18:59 06:59 18:59 Intake Total 378 10 Output Total 0 Balance 378 10 Intake: IV 20 10 Invasive Line 4 20 10 Oral 358 Output: Gastric Drainage 0 Urine 0 Stool 0 Urine/Stool Mix 0 Emesis 0 Oral Regurgitation 0 Other 0 Other: Voiding Method Toilet Toilet Toilet # Voids 0 2 # Bowel Movements 0 - Labs CBC & Chem 7: 01/14/24 05:44 01/14/24 05:44 Labs: Abnormal Lab Results - Last 24 Hours (Table) 01/16/24 Range/Units 19:48 POC Glucose (mg/dL) 114 H (70-110) mg/dL
[2024-01-17 10:51] LABS: African American GFR (CKD) >90 (>60 ml/min/1.73 sqM); Anion Gap 3 mmol/L; Blood Urea Nitrogen 30 mg/dL (9-20); Calcium 8.7 mg/dL (8.4-10.2); Carbon Dioxide 28 mmol/L (22-30); Chloride 108 mmol/L (98-107); Glucose 88 mg/dL (74-99); Non-African American GFR(CKD) 84 (>60 ml/min/1.73 sqM); Sodium 139 mmol/L (137-145)
[2024-01-17 11:36] LABS: Glucose,Whole Blood 98 mg/dL (70-110)
--- NOTE | 2024-01-17 14:22 | P.PN ---
Subjective Progress Note Date: 01/17/24 This is a 63-year-old male patient who presented to the ER just after midnight today with complaints of chest pain shortness of breath cough congestion. He had stated he had start sharp stabbing pain in the left chest progressively worsening shortness of breath. Apparently he refused to come by EMS that had been called. He came in by family car. He was noted to be davis, pale diaphoretic, tachypneic and tachycardic and severe respiratory distress. Initial trial of BiPAP and Ativan failed and the patient was intubated and placed on the mechanical ventilator. CT angio gram was suboptimal. No central saddle pulmonary embolism. Could not exclude segmental or subsegmental PE. No aortic dissection. There are small to moderate-sized bilateral pleural effusions. Bilateral multifocal glass opacities and focal consolidations. EKG revealed sinus tachycardia without significant ST or T wave abnormalities. White count 13.3. Hemoglobin 16.3. Platelets 266. Sodium 131. Potassium 4.0. Bicarb 18. BUN 19. Creatinine 1.14. Glucose 257. Magnesium 2.1. AST 226. ALT 198. Initial troponin 0.028. Then 0.088. proBNP 12,500. Viral screen was negative. He is intubated on mechanical ventilator currently on assist-control mode at a rate of 20, tidal volume 450, FiO2 40% and a PEEP of 5. Most recent arterial blood gases revealed a PaO2 of 153, pCO2 38 and a pH of 7.38. He is on propofol at 15 mcg/kg/min. Fentanyl drip at 1 mcg/kg/h. Receive ceftriaxone and azithromycin. The patient is seen today January 09, 2024 in follow-up in the intensive care unit. He remains intubated on mechanical ventilator at assist-control rate of 20, tidal volume 450, FiO2 40% and a PEEP of 5. Morning blood gases revealed a PaO2 of 89, pCO2 of 48 and a pH of 7.29. He remains on propofol at 25 mcg/kg/min. Fentanyl at 1 mcg/kg/h. He is continued on DuoNeb ventilations, Pulmicort and performing scintillations, Solu-Medrol. White count 6.1. Hemoglobin 13.8. Platelets 208. Sodium 137. Potassium 4.5. Bicarb 19. BUN 17. Creatinine 0.97. Glucose 126. Echocardiogram reveals a left ventricular systolic ejection fraction of 30%. There is global left ventricular hypokinesia. Chest x-ray reveals scattered perihilar and basilar infiltrates with small pleural effusions. Stable compared to previous. He was given 20 mg of Lasix IV push this morning. Currently in a -1.8 L balance. The patient is seen today January 10, 2024 in follow-up in the intensive care unit. He remains intubated on the mechanical ventilator with current settings of assist-control mode with a rate of 20, tidal volume 450, FiO2 30% and a PEEP of 5. Morning blood gases reveal a pO2 of 135, pCO2 43 and a pH of 7.40. He is sedated on propofol at 35 mcg/kg/min. Fentanyl at 1 mcg/kg/h. Normal saline at KVO. He is being nourished with vital HP at 20 MLS per hour with a goal of 47 mL/h. His procalcitonin was 0.07. His antibiotics were discontinued. He remains on DuoNeb ventilations, Pulmicort and Perforomist inhalations, Solu- Medrol. Lovenox for DVT prophylaxis. Sputum culture revealed no growth. Blood cultures reveal no growth thus far. White count 8.3. Hemoglobin 13.3. Platelets 190. Sodium 140. Potassium 4.4. Bicarb 23. BUN 20. Creatinine 1.03. Glucose 143. On today's evaluation of 01/11/2024, the patient remains intubated on the mechanical ventilator. The patient is post hypoxic respiratory failure due to pulmonary edema and CHF as the patient has systolic heart failure with an ejection fraction of 30%. The patient remains intubated on the mechanical ventilator. He also has history of alcoholism. He has required higher dose of sedation and the patient is currently on propofol at 35 mcg/kg/min and fentanyl at 1 mcg/kg/h. This morning, he is on assist-control mode with rate of 20, tidal volume of 450, FiO2 of 30% with a PEEP of 5. The blood gas shows a pH of 7.4 with a pCO2 of 48 and pO2 of 75. IV fluids are currently at KVO. Peak airway pressures of 27 and a static airway pressure is 16. The patient's chest x-ray still showing pulmonary edema with bilateral pleural effusion. There is also areas of patchy infiltration bilaterally. Procalcitonin level has not been elevated and the patient was treated with a course of antibiotics. I did appreciate some patchy infiltrates on the initial CAT scan of the chest that was done at time of admission. Nevertheless, the viral screen has also been negative. The patient is hemodynamically stable on no pressors. Echocardiogram showed impaired LV function. Remains on IV Lasix. No significant edema lower extremities. The white cell count of 8.4 with a hemoglobin of 14 and a platelet count of 203. The BUN is at 31 with a creatinine of 1.06 and a sodium levels at 143 with a potassium level of 4.1. The patient's overall fluid balance over the past 24 hours has been -1.6 L. The blood cultures been negative. Sputum culture has been also negative. The patient is also on enteral feeding for nutritional support and the patient is on vital HP at 30-40. On today's evaluation of 01/12/2024, the patient is being seen for a follow-up. This morning, the patient is off fentanyl and the patient is on propofol at 50 mcg/kg/min. Afebrile. Hemodynamically stable on no pressors. Remains on the mechanical ventilator on assist-control mode with rate of 22, tidal volume of 450, FiO2 of 30% with a PEEP of 5. Peak airway pressure is 23. Blood gas showed pH of 7.47 with a pCO2 of 48 and pO2 of 74. Fluid balance has been -2.1 L over the past 24 hours. Chest x-ray from today still showing bilateral pleu ral effusions. ET tube is in good location. The patient is on Glucerna at rate of 47 cc an hour. Otherwise, no other significant events overnight. The white cell count today is at 9.9 with a hemoglobin of 15.4 and a platelet count of 220. BUN is at 53 with a creatinine of 1.15. Sodium levels at 148, potassium levels at 3.9 and the chloride is 110. The patient remains on Lasix 40 mg IV every 12 hours. The patient is on Lovenox for DVT prophylaxis. The patient remains on DuoNeb nebulized treatments [id number] and IV Solu-Medrol 40 mg every 6 hours. He remains on IV Protonix. He has no shortness of breath complaining of sedation holiday and weaning parameters need to be checked in consideration for extubation today. On today's evaluation of 01/13/2024, the patient is being seen for a follow-up. The patient is awake and alert and the patient was extubated yesterday and the patient is currently on room air oxygen. No specific complaints. Communicating. He is moving all 4 extremities. Overall he is weak. Chest x- ray still showing CHF and there may be some areas of patchy pulmonary infiltrates. There is interval reduction of the amount of pleural effusion seen on earlier chest x-ray. The patient is hemodynamically stable. The patient has significant cardiomyopathy with impaired LV function. The patient is currently on Zestril 10 mg p.o. twice a day and the patient is also on chronic 6.25 mg p.o. twice a day. Remains on bronchodilators. Remains on Lasix 40 mg IV every 24 hours. The patient had labs today and the patient's white cell count is 11.5 with a hemoglobin of 16, BUN of 48 with a creatinine of 0.9 and a sodium levels at 145. Cardiac rhythm is sinus. Hemodynamically stable. No other significant issues over the past 24 hours other than this patient being weaned off the mechanical ventilator the patient has been extubated successfully. On today's evaluation 01/14/2024, the patient is doing well. No specific complaints. The patient is currently on room air oxygen with a pulse ox of 96%. No cough or sputum production or chest tightness or wheezing. The patient was taken off the diuretics and the patient is currently on Aldactone 25 mg p.o. daily. The patient will be also taken off the IV Solu-Medrol. Remains on Lovenox for DVT prophylaxis. Remains on Coreg 6.25 mg twice a day and Zestril 10 mg p.o. daily. No other significant events overnight. Awake and alert and communicating. Cardiac rhythm is sinus. No edema lower extremities. No other complaints otherwise for now. On today's evaluation of 01/15/2024, the patient is being seen for a follow-up. The patient is calm and comfortable and denies having any respiratory distress. The patient has been on room air oxygen. Repeat chest x-ray was done and the patient was found to have no significant pleural effusion and the pulm edema is essentially covered. As mentioned, the patient has impaired LV function with an ejection fraction of 30%. He is currently on a combination of Coreg 6.25 mg twice a day, lisinopril 10 mg twice a day and Aldactone 25 mg p.o. daily. The plan is to do a cardiac catheterization early next week. Otherwise, no other significant events overnight. The patient is doing extremely well for now. On today's evaluation of 01/16/2024, the patient is on room air oxygen. The patient is ambulating. No significant respiratory distress. The patient has no cough or sputum production or chest tightness or wheezing. The patient is com pleting a prednisone burst taper. In regards to his CHF, the patient is on chronic 6.25 mg twice a day and Aldactone 25 mg p.o. daily and lisinopril 10 mg p.o. daily. He is also on high-dose statin. Remains on aspirin. Awaiting further recommendations from cardiology. Plan is to do a cardiac ca theterization on Thursday. On today's evaluation of 01/17/2024, the patient is resting comfortably in bed. No respiratory difficulties. No chest pain. He has recovered from his acute hypoxic respiratory failure. His CHF is under better control he seems to be optimized at this point in time and the most recent chest x-ray shows resolution of the previously described bilateral pleural effusions. The patient remains on Coreg, lisinopril and Aldactone. Cardiac catheterization is being planned for Thursday. No other complaints otherwise for now. BUN is at 30 with a creatinine of 0.96 and a sodium levels at 139. Cardiac rhythm is sinus. No tachycardia. No cardiac arrhythmias have been noted. Objective - Vital Signs Vital signs: Vital Signs Temp 98.1 F 01/17/24 04:56 Pulse 65 01/17/24 08:39 Resp 16 01/17/24 08:39 BP 117/63 01/17/24 08:39 Pulse Ox 98 01/17/24 08:39 FiO2 30 01/12/24 16:00 Intake & Output 01/16/24 01/17/24 01/17/24 18:59 06:59 18:59 Intake Total 378 10 Output Total 0 Balance 378 10 Intake: IV 20 10 Invasive Line 4 20 10 Oral 358 Output: Gastric Drainage 0 Urine 0 Stool 0 Urine/Stool Mix 0 Emesis 0 Oral Regurgitation 0 Other 0 Other: Voiding Method Toilet Toilet Toilet # Voids 0 2 # Bowel Movements 0 - Exam GENERAL EXAM: Intubated, sedated 63-year-old male, awake and alert extubated on room air oxygen. HEAD: Normocephalic. EYES: Sluggish reaction of pupils, equal size. NOSE: Clear with pink turbinates. Neck was supple and without jugular venous distension, thyromegaly, or carotid bruits. Carotids were easily palpable bilaterally. There was no adenopathy. NECK: No masses, no JVD. CHEST: No chest wall deformity. LUNGS: Equal air entry with scattered rhonchi, crackles in the bases. CVS: S1 and S2 normal with no audible murmur, regular rhythm. ABDOMEN: No hepatosplenomegaly, normal bowel sounds, no guarding or rigidity. SPINE: No scoliosis or deformity SKIN: No rashes CENTRAL NERVOUS SYSTEM: Awake and alert and there is generalized global weakness, no focal neurological deficits. EXTREMITIES: There is no peripheral edema. No clubbing, no cyanosis. Peripheral pulses are intact. - Labs CBC & Chem 7: 01/14/24 05:44 01/17/24 08:59 Labs: Abnormal Lab Results - Last 24 Hours (Table) 01/16/24 Range/Units 19:48 POC Glucose (mg/dL) 114 H (70-110) mg/dL Assessment and Plan Plan: Acute hypoxic respiratory failure requiring intubation and mechanical ventilatory support possibly secondary to fluid volume overload. BNP 12,500. Procalcitonin was negative at 0.07. Note that the acute hypoxic respiratory failure was predominantly related to CHF as the patient had interstitial edema/pulmonary edema in addition to bilateral pleural effusions. At same time, the patient had patchy bilateral pulmonary filtrates which could potentially reflect infection. Procalcitonin level has been low. Viral screen has been negative. The patient was extubated on 01/13/2024 and the patient is currently on room air oxygen. The patient is currently on room air oxygen. Chest x-ray shows resolution of the pulmonary edema. 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 The patient has global hypokinesis, currently on The patient is currently on Coreg 6.25 mg twice a day, lisinopril 10 mg p.o. daily, Aldactone 25 mg p.o. daily and Farxiga 5 mg p.o. daily Troponin leak, secondary to above Chronic alcohol abuse drinking approximately 8-12 beers daily, currently sedated with propofol and fentany has been discontinued Transaminitis, secondary to above History of chronic tobacco dependence Mild hypochloremic hyponatremia related to diuresis Plan: Clinically unchanged and the patient is currently stable awaiting his cardiac catheterization to be done in the morning. Patient remains on room air oxygen Chest x-ray showing resolution of the previously described pleural effusions. Diuretics have been discontinued. Continue Coreg 6.25 mg p.o. twice a day Zestril 10 mg p.o. daily Aldactone 25 mg p.o. daily Farxiga 5 mg p.o. daily Prednisone burst taper Lovenox for DVT prophylaxis Physical therapy increase mobility Cardiac catheterization early next week by Dr. Otero
[2024-01-17 16:26] LABS: Glucose,Whole Blood 93 mg/dL (70-110)
[2024-01-17 19:56] LABS: Glucose,Whole Blood 103 mg/dL (70-110)
[2024-01-17] MEDS: SODIUM CHLORIDE 0.9% 1,000 ML in EMPTY BAG 1 BAG IV SCH (20:36)
[2024-01-18] MEDS: ASPIRIN 325 MG TAB PO ONE (05:39)
[2024-01-18] MEDS: ATORVASTATIN 80 MG TAB PO ONE (05:39)
[2024-01-18 05:48] LABS: Glucose,Whole Blood 83 mg/dL (70-110)
[2024-01-18 12:08] LABS: Glucose,Whole Blood 83 mg/dL (70-110)
--- NOTE | 2024-01-18 12:11 | P.PN ---
Subjective HISTORY OF PRESENT ILLNESS: 01/17/2024 The patient is 63-year-old male who is currently admitted to the hospital with acute hypoxic respiratory failure. Cardiology was consulted for elevated troponins as well as congestive heart failure. Patient was found to have reduced ejection fraction at 30%. The patient was able to be extubated yesterday and is awake and alert at the time of my examination. The patient states he does not have any chest pain or chest pressure. He also denies any difficulty breathing. He does have occasional productive cough. Patient will require cardiac catheterization prior to his discharge which is scheduled for Thursday with Dr. Lisa Crouch. Heart rate is in the 60s and 70s, blood pressure 117/63, pulse ox 98% on room air. 01/18/2024 Patient examined this morning at the bedside. Patient denies any chest pain or pressure. Denies SOB. Vital signs are stable. Telemetry reveals sinus mechanism. PHYSICAL EXAM: VITAL SIGNS: Reviewed. GENERAL: Well-developed in no acute distress. NECK: Supple. No JVD or thyromegaly LUNGS: Respirations even and unlabored. Lungs essentially clear to auscultation bilaterally. HEART: Regular rate and rhythm. S1 and S2 heard. EXTREMITIES: Normal range of motion. No clubbing or cyanosis. Peripheral pulses intact. No lower extremity edema ASSESSMENT: Acute hypoxic respiratory failure Acute heart failure with reduced EF Cardiomyopathy, EF 30%, ischemic versus nonischemic History of COPD History of alcohol abuse PLAN: Continue current cardiac medications Patient to undergo cardiac cath today with Dr. Crocuh Further recommendations pending patient course Nurse practitioner note has been reviewed by physician. Signing provider agrees with the documented findings, assessment, and plan of care documented by CLOTH PRESSER as a scribe. Objective - Vital Signs Vital signs: Vital Signs Temp 97.7 F 01/18/24 09:05 Pulse 56 L 01/18/24 11:54 Resp 16 01/18/24 09:05 BP 143/87 01/18/24 09:05 Pulse Ox 100 01/18/24 09:05 FiO2 30 01/12/24 16:00 Intake & Output 01/17/24 01/18/24 01/18/24 18:59 06:59 18:59 Intake Total 1100 20 10 Balance 1100 20 10 Weight 68.2 kg Intake: IV 20 20 10 Invasive Line 4 20 20 10 Oral 1080 Other: Voiding Method Toilet Toilet Toilet # Voids 2 3 - Labs CBC & Chem 7: 01/14/24 05:44 01/17/24 08:59
[2024-01-18 16:11] VITALS: BP 144/88; PULSE 76; RESP 18; TEMP 98.1
--- NOTE | 2024-01-18 16:42 | P.PN ---
Subjective Progress Note Date: 01/18/24 Principal diagnosis: Acute exacerbation of systolic congestive heart failure with acute hypoxic respiratory failure On today's evaluation of 01/15/2024, the patient is being seen for a follow-up. The patient is calm and comfortable and denies having any respiratory distress. The patient has been on room air oxygen. Repeat chest x-ray was done and the patient was found to have no significant pleural effusion and the pulm edema is essentially covered. As mentioned, the patient has impaired LV function with an ejection fraction of 30%. He is currently on a combination of Coreg 6.25 mg twice a day, lisinopril 10 mg twice a day and Aldactone 25 mg p.o. daily. The plan is to do a cardiac catheterization early next week. Otherwise, no other significant events overnight. The patient is doing extremely well for now. On today's evaluation of 01/16/2024, the patient is on room air oxygen. The patient is ambulating. No significant respiratory distress. The patient has no cough or sputum production or chest tightness or wheezing. The patient is completing a prednisone burst taper. In regards to his CHF, the patient is on chronic 6.25 mg twice a day and Aldactone 25 mg p.o. daily and lisinopril 10 mg p.o. daily. He is also on high-dose statin. Remains on aspirin. Awaiting further recommendations from cardiology. Plan is to do a cardiac catheterization on Thursday. On today's evaluation of 01/17/2024, the patient is resting comfortably in bed. No respiratory difficulties. No chest pain. He has recovered from his acute hypoxic respiratory failure. His CHF is under better control he seems to be optimized at this point in time and the most recent chest x-ray shows resolution of the previously described bilateral pleural effusions. The patient remains on Coreg, lisinopril and Aldactone. Cardiac catheterization is being planned for Thursday. No other complaints otherwise for now. BUN is at 30 with a creatinine of 0.96 and a sodium levels at 139. Cardiac rhythm is sinus. No tachycardia. No cardiac arrhythmias have been noted. Reevaluate today on 01/18/2024, patient is doing well, he is on room air, not in any distress, seems to be upset just because his cardiac catheterization was postponed till tomorrow. In the meantime the patient is doing great, and in no form of distress. No labs were done today except for blood sugar of 83, labs from yesterday were unremarkable with a relatively normal renal profile.Chest x- ray from 01/14 showed resolution of his pulmonary edema. Transferred to Objective - Vital Signs Vital signs: Vital Signs Temp 98.1 F 01/18/24 15:47 Pulse 76 01/18/24 16:03 Resp 18 01/18/24 15:47 BP 144/88 01/18/24 15:47 Pulse Ox 97 01/18/24 15:47 FiO2 30 01/12/24 16:00 Intake & Output 01/17/24 01/18/24 01/18/24 18:59 06:59 18:59 Intake Total 1100 20 380 Balance 1100 20 380 Weight 68.2 kg Intake: IV 20 20 20 Invasive Line 4 20 20 20 Oral 1080 360 Other: Voiding Method Toilet Toilet Toilet # Voids 2 3 2 - Exam GENERAL EXAM: Reveals 63-year-old white male in no distress, on room air. HEAD: Normocephalic. EYES: PERRLA, EOMI, nonicteric. NOSE: Clear with pink turbinates. Neck was supple and without jugular venous distension, thyromegaly, or carotid bruits. NECK: No masses, no JVD. CHEST: No chest wall deformity. LUNGS: Clear bilaterally no rhonchi no wheezes CVS: S1 and S2 normal with no audible murmur, regular rhythm. ABDOMEN: Soft nontender no megaly no rebound no guarding SKIN: No rashes CENTRAL NERVOUS SYSTEM: Alert and oriented x 3 no gross focal deficit EXTREMITIES: Clubbing edema or cyanosis Psychiatric: Normal mood affect and normal mental status examination - Labs CBC & Chem 7: 01/14/24 05:44 01/17/24 08:59 Assessment and Plan Assessment: Impression: Acute hypoxic respiratory failure secondary to acute systolic congestive heart failure requiring intubation mechanical ventilation Bilateral pleural effusions secondary to CHF Severe systolic dysfunction possible alcoholic cardiomyopathy patient is scheduled to undergo cardiac catheterization tomorrow Troponin leak Chronic alcohol abuse Transaminitis secondary to alcoholism History of tobacco dependence syndrome Recommendation: Patient is now on room air Continue Coreg twice daily Continue Zestril and Aldactone as well as fark [employer] Continue prednisone taper and discontinue in the next 1 week Continue Lovenox Continue ambulation Cardiac catheterization tomorrow likely. Time with Patient: Less than 30
[2024-01-18 16:55] LABS: Glucose,Whole Blood 157 mg/dL (70-110)
[2024-01-18] MEDS ORDERED: ATORVASTATIN 40 MG TAB PO SCH (21:00)
--- NOTE | 2024-01-18 22:51 | PN ---
PROGRESS NOTE SUBJECTIVE: This 63-year-old white male, remains on his DuoNeb, breathing treatments for COPD. He is in no alcohol withdrawal. He is getting a heart catheterization today. OBJECTIVE: VITAL SIGNS: Temperature 98.1, pulse 88, respiratory rate 16 to 18, blood pressure 144/88, and O2 97 on room air. CARDIOVASCULAR: S1, S2. LUNGS: Decreased breath sounds, mostly clear. GI: Soft. HEMATOLOGY: Negative for Homans. ASSESSMENT: COPD, alcohol withdrawal, nicotine addiction, atypical chest pain. He is supposed to get a heart catheterization today. Possible discharge home if heart catheterization is normal. PROGNOSIS: Guarded. Wait for further results of the catheterization, Ativan for anxiety, which will be given as he is wanting to sign out AMA. LUIS M / ADAN: [id number] /
[2024-01-19] MEDS ORDERED: ASPIRIN 81 MG PO SCH (09:00)
== END 2024-01-18 20:52 | disposition home or self-care (01) | DRG 207 ==
LOC: EC 00:20 → 2SICU 02:06 → 3SCARD 01-14 08:05
PROVIDERS: ADMIT Family Medicine; ATTEND Family Medicine
PROC: 0BH17EZ Insertion of Endotracheal Airway into Trachea, Via Natural or Artificial Opening (ICD-10-PCS; principal; 2024-01-08)
PROC: 5A1955Z Respiratory Ventilation, Greater than 96 Consecutive Hours (ICD-10-PCS; principal; 2024-01-08)
PROC: 5A09357 Assistance with Respiratory Ventilation, Less than 24 Consecutive Hours, Continuous Positive Airway Pressure (ICD-10-PCS; 2024-01-08)
DX: J96.21 Acute and chronic respiratory failure with hypoxia (principal); J18.9 Pneumonia, unspecified organism; I21.A1 Myocardial infarction type 2; I50.23 Acute on chronic systolic (congestive) heart failure; J44.0 Chronic obstructive pulmonary disease with (acute) lower respiratory infection; J44.1 Chronic obstructive pulmonary disease with (acute) exacerbation; I42.9 Cardiomyopathy, unspecified; F10.239 Alcohol dependence with withdrawal, unspecified; F17.200 Nicotine dependence, unspecified, uncomplicated; E11.9 Type 2 diabetes mellitus without complications; R74.01 Elevation of levels of liver transaminase levels; I11.0 Hypertensive heart disease with heart failure; Z28.21 Immunization not carried out because of patient refusal; Z78.1 Physical restraint status; Z79.899 Other long term (current) drug therapy; Z79.82 Long term (current) use of aspirin; Z71.3 Dietary counseling and surveillance; Z79.52 Long term (current) use of systemic steroids
CPT/HCPCS: 31500; 36415; 36600; 71045; 71275; 80048; 80053; 82805; 83605; 83735; 83880; 84145; 84484; 85025; 85610; 85730; 87040; 87070; 87205; 87636; 93005; 93306; 94002; 94003; 94640; 94760; 96361; 96365; 96375; 96376; 99291

== ENCOUNTER 2024-10-09 13:28 | Emergency (ER) | payer OTHER ==
[2024-10-09 13:43] VITALS: RESP 16
--- NOTE | 2024-10-09 14:09 | XR ---
EXAMINATION TYPE: XR ribs LT w pa chest xray DATE OF EXAM: 10/09/2024 2:03 PM COMPARISON: Chest radiograph dated 01/14/2034. CLINICAL INDICATION: Male, 64 years old with history of pain left ribs from fall; [facility] TECHNIQUE: XR ribs LT w pa chest xray; Frontal and oblique views of the ribs with frontal chest radio graph. FINDINGS: Cardiac silhouette within normal limits for size. No acute focal consolidation. No pleural effusion o r pneumothorax. Mildly displaced acute fracture of the left lateral 10th rib and suspected nondisplaced fractures of the right lateral ninth and 11th ribs. IMPRESSION: Mildly displaced acute fracture of the left lateral 10th rib and suspected nondisplaced fractures of the right lateral ninth and 11th ribs. No associated pneumothorax. [facility], , 10/09/2024 2:07 PM
[2024-10-09] MEDS: KETOROLAC 15 MG/ML 1 ML VIAL IM STA (15:05)
[2024-10-09] MEDS: HYDROmorphone 1 MG/ML 1 ML SYRINGE IM STA (15:06)
--- NOTE | 2024-10-09 15:08 | ED ---
General Adult HPI - General Chief complaint: Chest Pain Stated complaint: fell L rib pain Time Seen by Provider: 10/09/24 13:50 Source: patient, RN notes reviewed, old records reviewed Mode of arrival: wheelchair Limitations: no limitations - History of Present Illness Initial comments: This is a 64-year-old male who presents to the emergency department after having fallen over and landing on his left rib cage. Patient states he landed on a pile of wood. This occurred yesterday. Patient states the pain is significant and anytime he takes a deep breath it hurts in the posterior rib region on the left. Patient denies any shortness of breath. Patient denies any anterior chest pain. Patient denies hitting his head or neck. Patient denies any other injury at this time. - Related Data Home Medications Medication Instructions Recorded Confirmed Albuterol Inhaler [Ventolin Hfa 2 puff INHALATION DIRECTED PRN 01/08/24 01/08/24 Inhaler] Previous Rx's Medication Instructions Recorded Aspirin 325 mg PO ONCE 90 Days #90 tab 01/16/24 Atorvastatin [Lipitor] 80 mg PO ONCE 30 Days #30 tab 01/16/24 Budesonide [Pulmicort] 1 mg INHALATION RT-BID 30 Days #60 01/16/24 ml Dapagliflozin Propanediol [Farxiga] 5 mg PO DAILY 30 Days #30 tab 01/16/24 Enoxaparin [Lovenox] 40 mg SQ DAILY 5 Days #5 each 01/16/24 Formoterol Fumarate [Perforomist] 20 mcg INHALATION RT-BID 30 Days 01/16/24 #60 ml Ipratropium-Albuterol Nebulize 3 ml INHALATION RT-QID 30 Days 01/16/24 [Duoneb 0.5 mg-3 mg/3 ml Soln] #120 each Nitroglycerin Sl Tabs [Nitrostat] 0.4 mg SUBLINGUAL Q5M PRN 90 Days 01/16/24 #100 tab Spironolactone [Aldactone] 25 mg PO DAILY 30 Days #30 tab 01/16/24 carvediloL [Coreg] 6.25 mg PO BID-W/MEALS 30 Days #60 01/16/24 tab lisinopriL [Zestril] 10 mg PO BID 30 Days #60 tab 01/16/24 predniSONE [Deltasone] 40 mg PO DAILY 5 Days #5 tab 01/16/24 Ketorolac [Toradol] 10 mg PO Q8HR #15 tab 10/09/24 Allergies Allergy/AdvReac Type Severity Reaction Status Date / Time No Known Allergies Allergy Verified 10/09/24 13:43 Review of Systems ROS Statement: Those systems with pertinent positive or pertinent negative responses have been documented in the HPI. ROS Other: All systems not noted in ROS Statement are negative. Past Medical History Past Medical History: Chest Pain / Angina, Heart Failure, COPD, CVA/TIA, Diabetes Mellitus, GERD/Reflux, Hyperlipidemia, Hypertension, Pneumonia, Respiratory Disorder History of Any Multi-Drug Resistant Organisms: None Reported Past Surgical History: Hernia Repair Additional Past Surgical History / Comment(s): [place] teeth pulled only. Past Anesthesia/Blood Transfusion Reactions: No Reported Reaction Additional Past Anesthesia/Blood Transfusion Reaction / Comment(s): Never had anesthesia Past Psychological History: Anxiety, Depression, Panic Disorder Smoking Status: Current every day smoker Past Alcohol Use History: Daily, Heavy Past Drug Use History: None Reported - Past Family History Mother Family Medical History: No Reported History, Asthma, COPD, Pneumonia Additional Family Medical History / Comment(s): Emphysema Father Family Medical History: Cancer Additional Family Medical History / Comment(s): Unknown General Exam - General Exam Comments Initial Comments: GENERAL: Patient is well-developed and well-nourished. Patient is nontoxic and well- hydrated and is in moderate distress. ENT: Neck is soft and supple. No significant lymphadenopathy is noted. Oropharynx is clear. Moist mucous membranes. Neck has full range of motion without eliciting any pain. EYES: The sclera were anicteric and conjunctiva were pink and moist. Extraocular movements were intact and pupils were equal round and reactive to light. Eyelids were unremarkable. PULMONARY: Unlabored respirations. Good breath sounds bilaterally. No audible rales rhonchi or wheezing was noted. CARDIOVASCULAR: There is a regular rate and rhythm without any murmurs gallops or rubs. Patient has reproducible pain in about the ninth and 10th rib area on the left posterior region of the rib cage ABDOMEN: Soft and nontender with normal bowel sounds. SKIN: Skin is clear with no lesions or rashes and otherwise unremarkable. NEUROLOGIC: Patient is alert and oriented x3. Cranial nerves II through XII are grossly intact. Motor and sensory are also intact. Normal speech, volume and content. Symmetrical smile. MUSCULOSKELETAL: Normal extremities with adequate strength and full range of motion. LYMPHATICS: No significant lymphadenopathy is noted PSYCHIATRIC: Normal psychiatric evaluation. Limitations: no limitations Course Vital Signs 10/09/24 13:40 Temperature 97.6 F Pulse Rate 83 Respiratory 16 Rate Blood Pressure 160/93 O2 Sat by Pulse 95 Oximetry Medical Decision Making - Medical Decision Making Was pt. sent in by a medical professional or institution (, SAAD, INSIDE SALES RECRUITER, urgent care, hospital, or fdc...) When possible be specific @ -No Did you speak to anyone other than the patient for history (EMS, parent, family, police, friend...)? What history was obtained from this source @ -No Did you review nursing and triage notes (agree or disagree)? Why? @ -I reviewed and agree with nursing and triage notes Were old charts reviewed (outside hosp., previous admission, EMS record, old EKG, old radiological studies, urgent care reports/EKG's, fdc records)? Report findings @ -No old charts were reviewed Differential Diagnosis? @ -Differential Chest Pain: Stable Angina, Unstable Angina, STEMI, NSTEMI Aortic Dissection, Pneumothorax, M usculoskeletal, Esophageal Spasm GERD, Cholecystitis, Pancreatitis, Zoster, this is not meant to be an all-inclusive list. EKG interpreted by me (3pts min.). @ -As above X-rays interpreted by me (1pt min.). @ -Chest x-ray shows acute displaced rib fracture of rib 10 and a nondisplaced fracture of the ninth and 11th rib CT interpreted by me (1pt min.). @ -None done U/S interpreted by me (1pt. min.). @ -None done What testing was considered but not performed or refused? (CT, X-rays, U/S, labs)? Why? @ -None What meds were considered but not given or refused? Why? @ -None Did you discuss the management of the patient with other professionals (professionals i.e. SAAD Aquino, INSIDE SALES RECRUITER, lab, RT, psych nurse, foster care social worker, ophthalmic technician apprentice, teacher, staff antisubmarine officer, embedded case manager)? Give summary @ -No Was smoking cessation discussed for >3mins.? @ -No Was critical care preformed (if so, how long)? @ -No Were there social determinants of health that impacted care today? How? (Homelessness, low income, unemployed, alcoholism, drug addiction, transportation, low edu. Level, literacy, decrease access to med. care, detention, rehab)? @ -No Was there de-escalation of care discussed even if they declined (Discuss DNR or withdrawal of care, Hospice)? DNR status @ -No What co-morbidities impacted this encounter? (DM, HTN, Smoking, COPD, CAD, Cancer, CVA, ARF, Chemo, Hep., AIDS, mental health diagnosis, sleep apnea, mo rbid obesity)? @ -None Was patient admitted / discharged? Hospital course, mention meds given and route, prescriptions, significant lab abnormalities, going to OR and other pertinent info. @ -Patient was given a shot of Toradol and Dilaudid in the waiting room and he was feeling considerably better patient will be sent home with incentive spirometer and [place] and Toradol Undiagnosed new problem with uncertain prognosis? @ -No Drug Therapy requiring intensive monitoring for toxicity (Heparin, Nitro, Insulin, Cardizem)? @ -No Were any procedures done? @ -No Diagnosis/symptom? @ -Rib fracture Acute, or Chronic, or Acute on Chronic? @ -Acute Uncomplicated (without systemic symptoms) or Complicated (systemic symptoms)? @ -Complicated Side effects of treatment? @ -No Exacerbation, Progression, or Severe Exacerbation? @ -No Poses a threat to life or bodily function? How? (Chest pain, [place], PA, pneumonia, PE, COPD, DKA, ARF, appy, cholecystitis, CVA, Diverticulitis, Homicidal, Suicidal, threat to staff... and all critical care pts) @ -No Disposition Clinical Impression: Ribs, multiple fractures Disposition: HOME SELF-CARE Condition: Good Instructions (If sedation given, give patient instructions): Rib Fracture (ED) Additional Instructions: Patient should take the [place] as prescribed and the Toradol as prescribed. Patient should use the incentive spirometer 10 times an hour Prescriptions: Ketorolac [Toradol] 10 mg PO Q8HR #15 tab Is patient prescribed a controlled substance at d/c from ED?: No Referrals: Jonn Gonzales MD [Primary Care Provider] - 1-2 days Time of Disposition: 15:07
[2024-10-09 15:34] VITALS: BP 128/74; PULSE 84; TEMP 98
== END 2024-10-09 15:11 | disposition home or self-care (01) ==
LOC: EC 13:28
DX: S22.43XA Multiple fractures of ribs, bilateral, initial encounter for closed fracture (principal); F17.200 Nicotine dependence, unspecified, uncomplicated; Z86.73 Personal history of transient ischemic attack (TIA), and cerebral infarction without residual deficits; W01.0XXA Fall on same level from slipping, tripping and stumbling without subsequent striking against object, initial encounter
CPT/HCPCS: 71101; 99284; 96372; J1171; J1885